=== PATIENT | male | born 1950 | race Caucasian/White ===

== ENCOUNTER → 2017-10-18 | Outpatient (CLI) | payer MEDICARE, OTHER ==
--- NOTE | 2017-10-18 14:39 | NM ---
EXAMINATION TYPE: NM bone scan whole body DATE OF EXAM: 10/18/2017 COMPARISON: MRI lumbar 09/15/2017 and plain film 09/08/2017 from outside institution HISTORY: Spondylosis, spinal stenosis, Abnormal MRI Delayed whole-body scanning was performed following the injection of 22.2 mCi Tc 99m MDP. Images acq uired 3 hours post injection. FINDINGS: Soft tissue uptake is normal. Uptake within the ankles, feet, knees, hands, shoulders, sternoclavicul ar joints is likely degenerative. Uptake in the maxilla and mandible likely due to periodontal diseas e. Uptake in the spine is likely due to degenerative disc disease. IMPRESSION: Degenerative disc disease and osteoarthritis. No abnormal uptake to suggest metastatic disease.
== END | disposition home or self-care (01) ==
LOC: RADNMMAIN 09:59
PROVIDERS: ATTEND Physical Medicine & Rehabilitation
DX: M51.36 Other intervertebral disc degeneration, lumbar region (principal); M47.816 Spondylosis without myelopathy or radiculopathy, lumbar region
CPT/HCPCS: 78306; A9503

== ENCOUNTER → 2019-04-11 | Outpatient (CLI) | payer MEDICARE, OTHER ==
[2019-04-11 17:53] LABS: HCT 52.8 % (39.0-53.0); HGB 16.8 gm/dL (13.0-17.5); MCH 30.9 pg (25.0-35.0); MCHC 31.9 g/dL (31.0-37.0); MCV 96.9 fL (80.0-100.0); Mean Platelet Volume 11.4; Platelet Count 231 k/uL (150-450); RBC 5.45 m/uL (4.30-5.90); RDW 13.3 % (11.5-15.5); WBC 8.2 k/uL (3.8-10.6)
[2019-04-11 20:33] LABS: Erythrocyte Sedimentation Rate 11 mm/hr (0-15)
[2019-04-12 02:21] LABS: Hemoglobin A1C 6.7 % (4.0-6.0)
[2019-04-12 02:33] LABS: African American GFR (CKD) 105.6 (60.0-200.0); Albumin 4.5 g/dL (3.80-4.90); Albumin/Globulin Ratio 1.88 (1.60-3.17); BUN/Creat Ratio 18.75 Ratio (12.00-20.00); Calcium 9.4 mg/dL (8.7-10.3); Globulin 2.4 g/dL (1.6-3.3); Non-African American GFR(CKD) 91.1 (60.0-200.0); Potassium 4.4 mmol/L (3.5-5.5); Total Bilirubin 0.3 mg/dL (0.3-1.2); Total Protein 6.9 g/dL (6.2-8.2)
[2019-04-12 02:42] LABS: T4, Free (Free Thyroxine) 1.1 ng/dL (0.80-1.80)
== END | disposition home or self-care (01) ==
LOC: LABWHC1 17:11
PROVIDERS: ATTEND Internal Medicine
DX: M54.5 Low back pain (principal); R63.4 Abnormal weight loss; F17.200 Nicotine dependence, unspecified, uncomplicated
CPT/HCPCS: 36415; 80053; 83036; 84439; 84443; 85027; 85652

== ENCOUNTER → 2021-10-09 | Outpatient (CLI) | payer MEDICARE ==
--- NOTE | 2021-10-09 12:32 | XR ---
EXAMINATION TYPE: XR cervical spine comp DATE OF EXAM: 10/09/2021 COMPARISON: NONE HISTORY: Pain TECHNIQUE: Four views are submitted. FINDINGS: The odontoid is intact. There are no compression deformities. The prevertebral soft tissue structur es are within normal limits. Multilevel facet arthropathy and degenerative disc disease most marked at C5-6 and C6-C7. Calcifications soft tissue the neck compatible carotid artery calcification. IMPRESSION: 1. Trilevel degenerative disc disease with severe changes involving the lower cervical spine facet ar thropathy suspected foraminal encroachment recommend MRI. 2. Soft tissue calcification in the neck bilaterally correlate for atherosclerotic disease of the car otid arteries.
== END | disposition home or self-care (01) ==
LOC: RADXRMAIN 11:21
PROVIDERS: ATTEND Family Medicine
DX: M54.2 Cervicalgia (principal); M79.602 Pain in left arm
CPT/HCPCS: 72050

== ENCOUNTER 2024-01-23 11:05 | Inpatient (IN) | payer MEDICARE ==
[2024-01-23 11:35] LABS: Basophils % (A) 0 %; Eosinophils # (A) 0.1 k/uL (0-0.7); Eosinophils % (A) 1 %; HCT 46.7 % (39.0-53.0); HGB 14.1 gm/dL (13.0-17.5); Hypochromasia Marked; Lymphocytes # (A) 0.9 k/uL (1.0-4.8); Lymphocytes % (A) 10 %; MCH 29.7 pg (25.0-35.0); MCHC 30.1 g/dL (31.0-37.0); MCV 98.5 fL (80.0-100.0); Mean Platelet Volume 12.1; Monocytes # (A) 0.5 k/uL (0-1.0); Monocytes % (A) 5 %; Neutrophils # (A) 7.4 k/uL (1.3-7.7); Neutrophils % (A) 83 %; Platelet Count 225 k/uL (150-450); RBC 4.75 m/uL (4.30-5.90); RDW 13.8 % (11.5-15.5); WBC 8.9 k/uL (3.8-10.6)
[2024-01-23 11:44] LABS: ALT 15 U/L (4-49); African American GFR (CKD) >90 (>60 ml/min/1.73 sqM); Albumin 4.1 g/dL (3.5-5.0); Anion Gap 9 mmol/L; Blood Urea Nitrogen 26 mg/dL (9-20); Calcium 9.7 mg/dL (8.4-10.2); Carbon Dioxide 31 mmol/L (22-30); Chloride 104 mmol/L (98-107); Glucose 255 mg/dL (74-99); Non-African American GFR(CKD) 86 (>60 ml/min/1.73 sqM); Sodium 144 mmol/L (137-145); Total Bilirubin 0.5 mg/dL (0.2-1.3); Total Protein 7.1 g/dL (6.3-8.2)
[2024-01-23 11:46] LABS: AST 28 U/L (17-59); Alkaline Phosphatase 87 U/L (38-126); Magnesium 1.9 mg/dL (1.6-2.3); Potassium 5.3 mmol/L (3.5-5.1)
[2024-01-23 11:52] LABS: NT-Pro-B-Type Natriuretic Pept 1040 pg/mL
--- NOTE | 2024-01-23 11:55 | XR ---
EXAMINATION TYPE: XR chest 2V DATE OF EXAM: 01/23/2024 11:42 AM COMPARISON: Chest radiographs from 01/23/2024 CLINICAL INDICATION: Male, 73 years old with history of difficulty breathing; TECHNIQUE: XR chest 2V Frontal and lateral views of the chest. FINDINGS: Lungs/Pleura: NEAR complete obscuration of the right lung with suspected underlying large right pleur al effusion. There is no evidence of left pleural effusion, left focal consolidation, or pneumothorax . Pulmonary vascularity: Unremarkable. Heart/mediastinum: Cardiomediastinal silhouette is unremarkable. Musculoskeletal: No acute osseous pathology. IMPRESSION: Large right pleural effusion with associated atelectasis. [facility], , 01/23/2024 11:53 AM
[2024-01-23 12:11] LABS: Prothrombin Time 11.1 sec (10.0-12.5)
--- NOTE | 2024-01-23 12:15 | ED ---
SOB HPI - General Chief Complaint: Shortness of Breath Stated Complaint: Afib,AMS Time Seen by Provider: 01/23/24 11:06 Source: patient, EMS, RN notes reviewed Mode of arrival: EMS Limitations: no limitations - History of Present Illness Initial Comments: 73-year-old male presents emergency department chief complaint of shortness of breath. Patient states he is noticing that increasing exertional dyspnea. Patient states that he said unintentional weight loss, states that has been coughing up blood. Patient states he does not take any current medications states he an appointment at his facility and states that he tried to walk [place] became too short of breath and fell over. Patient was found by staff. Patient was reportedly hypoxic per EMS immediately responded after supplemental O2. Patient has no complaints of headache. Patient states he is a former smoker states that because of facility he lives that he cannot smoke he states he been using nicotine. Patient denies any localized abdominal pain no lower extremity weakness he states he has overall fatigue. - Related Data Home Medications Medication Instructions Recorded Confirmed No Known Home Medications 01/23/24 01/23/24 Allergies Allergy/AdvReac Type Severity Reaction Status Date / Time No Known Allergies Allergy Verified 01/23/24 13:47 Review of Systems ROS Statement: Those systems with pertinent positive or pertinent negative responses have been documented in the HPI. ROS Other: All systems not noted in ROS Statement are negative. Past Medical History Past Medical History: No Reported History History of Any Multi-Drug Resistant Organisms: None Reported Past Surgical History: Hernia Repair Additional Past Surgical History / Comment(s): splenectomy Past Psychological History: No Psychological Hx Reported Past Alcohol Use History: Occasional Past Drug Use History: None Reported General Exam Limitations: no limitations General appearance: alert, in no apparent distress Head exam: Present: atraumatic, normocephalic, normal inspection Eye exam: Present: normal appearance, PERRL, EOMI. Absent: scleral icterus, conjunctival injection, periorbital swelling ENT exam: Present: normal exam, normal oropharynx, mucous membranes moist Neck exam: Present: normal inspection, full ROM. Absent: tenderness, meningismus, lymphadenopathy Respiratory exam: Present: respiratory distress, wheezes. Absent: rales, rhonchi, stridor Cardiovascular Exam: Present: tachycardia, irregular rhythm, normal heart sounds. Absent: regular rate, normal rhythm, systolic murmur, diastolic murmur, rubs, gallop, clicks GI/Abdominal exam: Present: soft, normal bowel sounds. Absent: distended, tenderness, guarding, rebound, rigid Course Vital Signs 01/23/24 01/23/24 01/23/24 11:09 12:19 13:30 Temperature 97.8 F Pulse Rate 125 H 76 73 Respiratory 24 22 20 Rate Blood Pressure 113/68 111/56 110/58 O2 Sat by Pulse 99 100 96 Oximetry Medical Decision Making - Medical Decision Making Was pt. sent in by a medical professional or institution (, PA, INSEAMER, urgent care, hospital, or [facility]...) When possible be specific @ -No Did you speak to anyone other than the patient for history (EMS, parent, family, police, friend...)? What history was obtained from this source @ -No Did you review nursing and triage notes (agree or disagree)? Why? @ -I reviewed and agree with nursing and triage notes Were old charts reviewed (outside hosp., previous admission, EMS record, old EKG, old radiological studies, urgent care reports/EKG's, [facility] records)? Report findings @ -No old charts were reviewed Differential Diagnosis (chest pain, altered mental status, abdominal pain women, abdominal pain men, vaginal bleeding, weakness, fever, dyspnea, syncope, headache, dizziness, GI bleed, back pain, seizure, CVA, palpatations, mental health, musculoskeletal)? @ -Differential Dyspnea: Coronary syndrome, arrhythmia, tamponade, asthma, COPD, pulmonary embolism, pneumonia, pneumothorax, pulmonary effusion, anaphylaxis, diabetic ketoacidosis, flailed chest, pulmonary contusion, diaphragmatic rupture, anemia, neuromuscular, this is not meant to be an all-inclusive list. EKG interpreted by me (3pts min.). @ -As above X-rays interpreted by me (1pt min.). @ -Chest x-ray shows large pleural effusion with probable underlying mass CT interpreted by me (1pt min.). @ -CT angio for PE negative for PE, there is large pulmonary mass, pleural effusion on the right U/S interpreted by me (1pt. min.). @ -None done What testing was considered but not performed or refused? (CT, X-rays, U/S, labs)? Why? @ -None What meds were considered but not given or refused? Why? @ -None Did you discuss the management of the patient with other professionals (professionals i.e. DrVeronica, PA, INSEAMER, lab, RT, psych nurse, social services director, commercial credit analyst, teacher, combat information center officer, manager rn case)? Give summary @ -Sound physician for admission with consult to pulmonology Was smoking cessation discussed for >3mins.? @ -No Was critical care preformed (if so, how long)? @ -No Were there social determinants of health that impacted care today? How? (Homelessness, low income, unemployed, alcoholism, drug addiction, tr ansportation, low edu. Level, literacy, decrease access to med. care, fci, rehab)? @ -No Was there de-escalation of care discussed even if they declined (Discuss DNR or withdrawal of care, Hospice)? DNR status @ -No What co-morbidities impacted this encounter? (DM, HTN, Smoking, COPD, CAD, Cancer, CVA, ARF, Chemo, Hep., AIDS, mental health diagnosis, sleep apnea, morbid obesity)? @ -[Smoking history Was patient admitted / discharged? Hospital course, mention meds given and route, prescriptions, significant lab abnormalities, going to OR and other pertinent info. @ -Admitted patient presented for dyspnea, exertional dyspnea hypoxia. Patient placed on supplemental O2, patient did present in A-fib RVR and Cardizem was ordered. Patient heart rate did improve and converted back to normal sinus rhythm. Patient's workup reveals large pulmonary mass concerning for malignancy, pleural effusion and obstructive process. Patient will be admitted for further treatment and evaluation. Patient did have elevated troponin more likely from demand ischemia hypoxia. This will be trended. Undiagnosed new problem with uncertain prognosis? @ -Yes Drug Therapy requiring intensive monitoring for toxicity (Heparin, Nitro, Insulin, Cardizem)? @ -No Were any procedures done? @ -No Diagnosis/symptom? @ -Pulmonary mass, hypoxia, exertional dyspnea, elevated troponin Acute, or Chronic, or Acute on Chronic? @ -Acute Uncomplicated (without systemic symptoms) or Complicated (systemic symptoms)? @ -[Complicated Side effects of treatment? @ -No Exacerbation, Progression, or Severe Exacerbation? @ -No Poses a threat to life or bodily function? How? (Chest pain, USA, VT, pneumonia, PE, COPD, DKA, ARF, appy, cholecystitis, CVA, Diverticulitis, Homicidal, Suicidal, threat to staff... and all critical care pts) @ -[Yes hypoxia, pulmonary mass, respiratory failure - Lab Data Result diagrams: 01/23/24 11:26 01/23/24 11: Lab Results 01/23/24 01/23/24 01/23/24 Range/Units 11:26 11:26 11:26 WBC 8.9 (3.8-10.6) k/uL RBC 4.75 (4.30-5.90) m/uL Hgb 14.1 (13.0-17.5) gm/dL Hct 46.7 (39.0-53.0) % MCV 98.5 (80.0-100.0) fL MCH 29.7 (25.0-35.0) pg MCHC 30.1 L (31.0-37.0) g/dL RDW 13.8 (11.5-15.5) % Plt Count 225 (150-450) k/uL MPV 12.1 Neutrophils % 83 % Lymphocytes % 10 % Monocytes % 5 % Eosinophils % 1 % Basophils % 0 % Neutrophils # 7.4 (1.3-7.7) k/uL Lymphocytes # 0.9 L (1.0-4.8) k/uL Monocytes # 0.5 (0-1.0) k/uL Eosinophils # 0.1 (0-0.7) k/uL Basophils # 0.0 (0-0.2) k/uL Hypochromasia Marked PT 11.1 (10.0-12.5) sec INR 1.0 (<1.2) APTT 19.4 L (22.0-30.0) sec D-Dimer 2.48 H (<0.60) mg/L FEU Sodium 144 (137-145) mmol/L Potassium 5.3 H (3.5-5.1) mmol/L Chloride 104 (98-107) mmol/L Carbon Dioxide 31 H (22-30) mmol/L Anion Gap 9 mmol/L BUN 26 H (9-20) mg/dL Creatinine 0.85 (0.66-1.25) mg/dL Est GFR (CKD-EPI)AfAm >90 (>60 ml/min/1.73 sqM) Est GFR (CKD-EPI)NonAf 86 (>60 ml/min/1.73 sqM) Glucose 255 H (74-99) mg/dL Lactic Ac Sepsis Rflx Plasma Lactic Acid Yousuf (0.7-2.0) mmol/L Calcium 9.7 (8.4-10.2) mg/dL Magnesium 1.9 (1.6-2.3) mg/dL Total Bilirubin 0.5 (0.2-1.3) mg/dL AST 28 (17-59) U/L ALT 15 (4-49) U/L Alkaline Phosphatase 87 (38-126) U/L Troponin I (0.000-0.034) ng/mL NT-Pro-B Natriuret Pep 1040 pg/mL Total Protein 7.1 (6.3-8.2) g/dL Albumin 4.1 (3.5-5.0) g/dL 01/23/24 01/23/24 01/23/24 Range/Units 11:26 11:26 11:56 WBC (3.8-10.6) k/uL RBC (4.30-5.90) m/uL Hgb (13.0-17.5) gm/dL Hct (39.0-53.0) % MCV (80.0-100.0) fL MCH (25.0-35.0) pg MCHC (31.0-37.0) g/dL RDW (11.5-15.5) % Plt Count (150-450) k/uL MPV Neutrophils % % Lymphocytes % % Monocytes % % Eosinophils % % Basophils % % Neutrophils # (1.3-7.7) k/uL Lymphocytes # (1.0-4.8) k/uL Monocytes # (0-1.0) k/uL Eosinophils # (0-0.7) k/uL Basophils # (0-0.2) k/uL Hypochromasia PT (10.0-12.5) sec INR (<1.2) APTT (22.0-30.0) sec D-Dimer (<0.60) mg/L FEU Sodium (137-145) mmol/L Potassium (3.5-5.1) mmol/L Chloride (98-107) mmol/L Carbon Dioxide (22-30) mmol/L Anion Gap mmol/L BUN (9-20) mg/dL Creatinine (0.66-1.25) mg/dL Est GFR (CKD-EPI)AfAm (>60 ml/min/1.73 sqM) Est GFR (CKD-EPI)NonAf (>60 ml/min/1.73 sqM) Glucose (74-99) mg/dL Lactic Ac Sepsis Rflx Y Plasma Lactic Acid Yousuf 2.3 H* (0.7-2.0) mmol/L Calcium (8.4-10.2) mg/dL Magnesium (1.6-2.3) mg/dL Total Bilirubin (0.2-1.3) mg/dL AST (17-59) U/L ALT (4-49) U/L Alkaline Phosphatase (38-126) U/L Troponin I 0.073 H* (0.000-0.034) ng/mL NT-Pro-B Natriuret Pep pg/mL Total Protein (6.3-8.2) g/dL Albumin (3.5-5.0) g/dL - EKG Data -: EKG Interpreted by Me EKG Comments: EKG performed at 11: 13 A-fib with RVR rate of 142 QRS 115 QT/QTc 287/369 Repeat EKG interpreted by me at 13: 56 sinus rhythm rate of 77 MD 195 QRS 112 QT/QTc 389/421 Disposition Clinical Impression: Lung mass, Pleural effusion, right, Hypoxia, New onset a-fib, Elevated troponin Disposition: ADMITTED IP TO THIS HOSP Condition: Poor Referrals: Bang Mcclain III, MD [Primary Care Provider] - 1-2 days Time of Disposition: 13:45
[2024-01-23 12:18] LABS: Partial Thromboplastin Time 19.4 sec (22.0-30.0)
--- NOTE | 2024-01-23 13:20 | CT ---
EXAMINATION TYPE: CT chest angio for PE CT DLP: 508.8 mGycm, Automated exposure control for dose reduction was used. DATE OF EXAM: 01/23/2024 1:13 PM COMPARISON: Chest radiograph from same day. CLINICAL INDICATION:Male, 73 years old with history of sob; SOB TECHNIQUE/CONTRAST: CTA scan of the thorax is performed with IV Contrast, patient injected with 100 mL of Isovue 370, pul monary embolism protocol. MIP images are created and reviewed. FINDINGS: Pulmonary Artery: There is no evidence for a filling defect within the pulmonary vasculature to sugge st acute pulmonary embolism. The main pulmonary artery is enlarged measuring 3.8 cm in diameter. The right main pulmonary artery is narrowed but patent Lungs/Pleura: Left lung is clear. No pneumothorax identified. Atelectatic change of the right lung. S mall to moderate size right pleural effusion with elevation of the right hemidiaphragm. Right hilar m ass measuring grossly 9.9 x 4.8 cm (series 401, image 64). This extends into the right suprahilar reg ion. Patchy right lower lobe groundglass and consolidative opacities. Airway: There is narrowing of the distal trachea with abrupt cut off of the right mainstem bronchus d ue to mass. Heart: Heart is within normal limits for size.. Vasculature: No evidence of aortic aneurysm. Few foci of gas identified within the venous vasculature likely related to vascular access. Atherosclerotic calcification of the aorta and its branches. Mediastinum: Confluent mediastinal adenopathy with additional super mediastinal enlarged lymph nodes . Prevascular space lymph node measures 2.1 cm short axis (series 401, image 51). Musculoskeletal: No acute osseous abnormalities. [facility] of the thoracic spine. Mild multilevel degenera tive disease. No aggressive osseous lesion. Vertebral hemangioma involving the right aspect of the T4 vertebral body extending into the posterior elements. Soft Tissues: Unremarkable. Lower neck: No significant findings. Upper Abdomen: Right adrenal gland 2.8 cm lipid rich adenoma with a Hounsfield unit of 6. Diminutive appearance of the spleen with multiple scattered regions of nodularity within the visualized peritone um including a 2.9 cm ovoid nodule inferior to the right hepatic lobe (series 401, image 142), gastro hepatic nodule measuring 3.4 cm central calcification (series 401, image 130). Hypoattenuating region adjacent to the falciform ligament within the liver likely representing focal fatty infiltration. IMPRESSION: 1. No evidence of pulmonary embolism. 2. Large right perihilar mass with superior hilar extension and invasion into the mediastinum and adj acent confluent adenopathy. Finding is highly concerning for primary lung cancer until proven otherwi se. This causes abrupt cut off of the right mainstem bronchus with narrowing of the right pulmonary a rtery. 3. Small to moderate size right pleural effusion with atelectatic change of the right lung. There is patchy consolidative opacities within the right lower lobe which may represent an infectious processe s versus related to #2. 4. Diminutive appearance of the spleen with few scattered regions of nodularity in the upper abdomen. May represent splenosis versus other etiologies such as metastasis related to #2. 5. Hypodense right 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 [facility], , 01/23/2024 1:18 PM
[2024-01-23] MEDS ORDERED: NITROGLYCERIN SL TABS 0.4 MG TAB SUBLINGUAL PRN (13:45)
[2024-01-23] MEDS: DILTIAZEM 125 MG in SODIUM CHLORIDE 0.9% 100 ML IV SCH (14:00)
[2024-01-23] MEDS: DILTIAZEM DRIP BOLUS FROM BAG 1 MG SOLN IV ONE (14:00)
[2024-01-23] MEDS ORDERED: NALOXONE 0.4 MG/ML 1 ML VIAL IV PRN (15:20)
[2024-01-23] MEDS ORDERED: ACETAMINOPHEN TAB 325 MG TAB PO PRN (15:20)
[2024-01-23] MEDS: SODIUM CHLORIDE 0.9% 1,000 ML IV SCH (16:15)
[2024-01-23] MEDS: DEXAMETHASONE SOD PHOSPHATE 10 MG/ML 1 ML VIAL IVP SCH (18:06)
--- NOTE | 2024-01-23 18:10 | P.CNPUL ---
History of Present Illness Consult date: 01/23/24 Reason for consult: dyspnea, lung mass History of present illness: A 73-year-old male patient, chronic smoker presented to the emergency department with progressive worsening shortness of breath over the past 2 to 3 months. The patient at the time of arrival was quite short of breath and he has inspiratory stridor. CT of the chest was done and the patient was found to have a right hilar mass measuring 9.9 x 4.8 cm in size and the mass extended into the right suprahilar area causing mass effect on the trachea with significant narrowing of the distal trachea and there is also an abrupt cut off of the right mainstem bronchus due to mass. There is also atelectatic changes involving the right lung and a small to moderate-sized right-sided pleural effusion and volume loss involving the right hemithorax with elevation of the right hemidiaphragm. There was also evidence of mediastinal lymphadenopathy. The tumor is extending into the trachea and there is obvious endobronchial component. The patient has been having episodes of hemoptysis in addition. In the emergency, the patient briefly went into atrial fibrillation with rapid medical response. Even before Cardizem drip was started, the patient went into normal sinus rhythm. Currently he is sitting up in a chair and is on oxygen 1 L with a pulse ox of 93%. He has a hoarse voice. No altered mentation. No headaches. No chest pain. Initial lactic acid level was at 2.3 dropped down to 1.3. Troponins are 0.07 and 0.09 respectively and a proBNP level is 1000. The white cell count is at 8.9 with a hemoglobin 14.1. He has been encountering weight loss. Review of Systems Constitutional: Reports fatigue, Reports weakness, Reports weight loss Eyes: denies as per HPI, denies blurred vision, denies bulging eye, denies decreased vision, denies diplopia, denies discharge, denies dry eye, denies irritation, denies itching, denies pain, denies photophobia, denies loss of peripheral vision, denies loss of vision, denies tunnel vision/blind spots Ears: deny: decreased hearing, ear discharge, earache, tinnitus Ears, nose, mouth and throat: Reports as per HPI Breasts: absent: as per HPI, gynecomastia Cardiovascular: Reports decreased exercise tolerance, Reports dyspnea on exertion Respiratory: Reports cough, Reports dyspnea, Reports hemoptysis Gastrointestinal: Reports as per HPI Genitourinary: Reports as per HPI Musculoskeletal: Reports as per HPI Musculoskeletal: absent: ankle pain, ankle stiffness, ankle swelling, as per HPI, elbow pain, elbow stiffness, elbow swelling, foot pain, foot stiffness, foot swelling, hand pain, hand stiffness, hand swelling, hip pain, hip s tiffness, hip swelling, knee pain, knee stiffness, knee swelling, shoulder pain, shoulder stiffness, shoulder swelling, wrist pain, wrist stiffness, wrist swelling Integumentary: Reports as per HPI Neurological: Reports as per HPI Psychiatric: Reports as per HPI Endocrine: Reports as per HPI Hematologic/Lymphatic: Reports as per HPI Allergic/Immunologic: Reports as per HPI Past Medical History Past Medical History: No Reported History History of Any Multi-Drug Resistant Organisms: None Reported Past Surgical History: Hernia Repair Additional Past Surgical History / Comment(s): splenectomy Past Psychological History: No Psychological Hx Reported Past Alcohol Use History: Occasional Past Drug Use History: None Reported Medications and Allergies Home Medications Medication Instructions Recorded Confirmed Type No Known Home Medications 01/23/24 01/23/24 History Allergies Allergy/AdvReac Type Severity Reaction Status Date / Time No Known Allergies Allergy Verified 01/23/24 13:47 Physical Exam Vitals: Vital Signs Temp Pulse Resp BP Pulse Ox 01/23/24 16:11 93 L 01/23/24 15:59 80 20 123/61 94 L 01/23/24 13:30 73 20 110/58 96 01/23/24 12:19 76 22 111/56 100 01/23/24 11:09 97.8 F 125 H 24 113/68 99 Intake and Output 01/23/24 01/23/24 01/23/24 06:59 14:59 22:59 Other: Weight 98.43 kg The patient appeared well nourished and normally developed. Vital signs as documented. The patient is having dyspnea at rest. The patient has also had inspiratory stridor over the anterior chest and neck area. He is currently on monitor of O2 nasal cannula. Head exam is unremarkable. No scleral icterus or corneal arcus noted. Neck is without jugular venous distension, thyromegaly, or carotid bruits. Carotid upstrokes are brisk bilaterally. Lungs marked diminished breath sounds right compared to left. Examination of the left side is within normal limits. Cardiac exam reveals the PMI to be normally sized and situated. Rhythm is regular. First and second heart sounds normal. No murmurs, rubs or gallops. Abdominal exam reveals normal bowel sounds, no masses, no organomegaly and no aortic enlargement. Extremities are nonedematous and both femoral and pedal pulses are normal. Examination of the skin revealed no evidence of significant rashes, suspicious appearing nevi or other concerning lesions. Neurologically, the patient is awake and alert and the patient does not have any focal neurological deficit. Cranial nerves are essentially intact. Results - Laboratory Findings CBC and BMP: 01/23/24 11:01/23/24 11: PT/INR, D-dimer PT 11.1 sec (10.0-12.5) 01/23/24: INR 1.0 (<1.2) 01/23/24 11: D-Dimer 2.48 mg/L FEU (<0.60) H 01/23/24 11:26 Abnormal lab findings: Abnormal Labs 01/23/24 01/23/24 01/23/24 11: 11:26 11:26 MCHC 30.1 L Lymphocytes # 0.9 L APTT 19.4 L D-Dimer 2.48 H Potassium 5.3 H Carbon Dioxide 31 H BUN 26 H Glucose 255 H Plasma Lactic Acid Yousuf Troponin I 01/23/24 01/23/24 01/23/24 11:26 11:26 14:06 MCHC Lymphocytes # APTT D-Dimer Potassium Carbon Dioxide BUN Glucose Plasma Lactic Acid Yousuf 2.3 H* Troponin I 0.073 H* 0.097 H* - Diagnostic Findings Chest x-ray: image reviewed CT scan - chest: image reviewed Assessment and Plan Plan: Right upper lobe mass measuring 9.9 x 4.8 cm in size extending to the right suprahilar area and causing mass effect on the distal trachea with abrupt cut ultrasound of the right mainstem bronchus/bronchus intermedius and right upper lobe bronchus. The patient also has mediastinal lymphadenopathy and atelectatic changes involving the right lung and mild to moderate-sized right-sided pleural effusion and volume loss involving the right hemithorax. Findings are highly suspicious for central malignancy/primary bronchogenic cancer. Rule out underlying small cell lung cancer. Acute stridor, could be related to vocal cord paralysis versus tracheal compression by the mediastinal tumor. Impending SVC syndrome with positive JVDs without facial or upper extremity swelling Acute on chronic shortness of breath secondary to above Hemoptysis, likely secondary to the right upper lobe mass extending into the right mainstem bronchus/tracheal wall Paroxysmal A-fib, currently back in normal sinus rhythm Troponin leak COPD Chronic smoking Plan I had a lengthy discussion with the patient. The patient was made aware that his airways are significantly compromised as the patient is having some stridor at rest. A bronchoscopy will be needed for tissue diagnosis. However, this procedure may end up being complicated by development of respiratory failure requiring intubation mechanical ventilation. This is a significant concern and this was shared with the patient. This will be also discussed with other family members. The patient does not have immediate family members living with him and portogram. He has a brother in [facility] and another sister in [place]. I will reach out to the sister upon the patient's wishes and explained to her the situation. Meanwhile, we will going to consult radiation oncology in consideration of ablative radiation therapy as the patient has significant compromise and mass effect on his trachea. Will start the patient on systemic steroids. Will admit the patient to the intensive care unit. Bronchoscopy will be a high risk procedure and as mentioned the patient may end up requiring intubation mechanical ventilation which may be a long-term or permanent intervention. The patient stated that he does not want long-term mechanical support and he was agreeable to short-term mechanical support if needed post bronchoscopy. For now, his CODE STATUS is full. Overall prognosis is poor. Further prognostication will follow once tissue diagnosis established and staging is established.
[2024-01-23 19:30] LABS: Glucose,Whole Blood 137 mg/dL (70-110)
--- NOTE | 2024-01-23 20:20 | P.HPIM ---
History of Present Illness H&P Date: 01/23/24 Patient is a 73-year-old male with no known past medical history presented to the emergency department by EMS after falling after walking about 40 feet this morning. He states that he "just ran out of energy." He denies tripping or syncope, no loss of consciousness. He endorses associated lightheadedness, dizziness, and dyspnea at the time. He endorses losing about 45 pounds in the last 2 months. He endorses hemoptysis for the last 3 months. He states that he has not mentioned the hemoptysis to his primary care provider. Initial EKG independently interpreted as A-fib with rapid ventricular rate, poor R-wave progression. IV Cardizem was given. Initial chest x-ray: Large right pleural effusion with associated atelectasis. Initial chest CTA: No evidence of pulmonary embolism; large right perihilar mass with superior hilar extension and invasion into the mediastinum and adjacent co nfluent adenopathyfinding highly concerning for primary lung cancer until proven otherwisethis caused abrupt cut off of the right mainstem bronchus with narrowing of the right pulmonary artery; small to moderate size right pleural effusion with atelectatic change of the right lungpatchy consolidative opacities within the right lower lobe which may represent an infectious process versus related to other finding; diminutive appearance of the spleen with few scattered regions of nodularity in the upper abdomen, may represent splenosis versus other etiologies such as metastasis; 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 Initial labs: WBC 8.9, hemoglobin 14.1, hematocrit 46.7, platelets 225, PT 11.1, INR 1, APTT 19.4, D-dimer 2.48, sodium 144, potassium 5.3, chloride 104, CO2 31, BUN 26, creatinine 0.85, glucose 255, lactic acid 2.3, troponin X3 0.073, 0.097, 0.092. Initial vitals: T 97.8 F, [place] 125 bpm, RR 24, BP 113/68, O2 sat 99% on 6 L nasal cannula. ED documentation reviewed. Review of systems: Pertinent positives and negatives as discussed in HPI, a complete review of systems was performed and all other systems are negative. Social history: Tobacco: 1-2 ppd since age 17 Alcohol: 3 drinks per week on average Recreational drugs: None reported Travel: None reported Sick contacts: None reported Physical examination: Vital signs reviewed. Tachypneic. General: Respiratory distress, hoarse voice Derm: Warm, dry, intact Head: Atraumatic, normocephalic, symmetric Eyes: EOMI, anicteric sclera Mouth: No lip lesion, mucus membranes moist Cardiovascular: S1-S2 regular, no murmur; JVD present Lungs: Inspiratory stridor, accessory muscle use, diminished breath sounds on the right side compared to the left Abdominal: Soft, non-tender to palpation Extremities: No cyanosis, clubbing, or pedal edema; no edema of the right upper extremity Neuro: Alert, oriented x 3, gross neurological examination did not reveal any focal deficits. Cranial nerves II to XII grossly intact. Psych: Appropriate affect and mood Assessment and Plan: Patient is a 73-year-old male with no known past medical history admitted for acute hypoxic respiratory failure. He was subsequently found to have a lung mas s and is undergoing further workup. Active #. Acute hypoxic respiratory failure, likely secondary to lung mass #. Metabolic alkalosis-compensatory versus contraction alkalosis #. Elevated BNP, likely secondary to lung mass #. Hemoptysis, likely secondary to lung mass extending into mainstem bronchus #. Acute stridor, secondary to tracheal compression via mediastinal tumor versus vocal cord paralysis Normal saline at 75 cc/h Monitor BMP IV ceftriaxone 2 g daily empirically for pneumonia IV azithromycin 500 mg daily empirically for pneumonia Decadron IV 6 mg every 6 hours Obtain procalcitonin Monitor BMP Monitor CBC Obtain LDH Obtain magnesium Obtain TSH with reflex Obtain A1c Obtain lipid panel Oncology consulted Pulmonology consulteddiscussed with pulmonology at bedsidebronchoscopy is needed for tissue diagnosis Significant concern for respiratory failure requiring intubation and mechanical ventilation Fall precautions Discussed with oncolology re: initiating decadron Consulted radiation oncology for consideration of urgent chest radiation #. Paroxysmal A-fib not on anticoagulation Currently in normal sinus rhythm Telemetry monitoring Started on diltiazem gtt in ER F: No restriction E: Replete if required N: NPO A: Fall precautions DVT prophylaxis: Subcutaneous Lovenox 40 mg daily currently on hold due to possibility for bronchoscopy tomorrow The patient is admitted with an anticipated less than 2 midnight stay for evaluation of fatigue and dyspnea. CODE STATUS: Full code, but would not want alf life sustaining treatment Discussed with: Patient, patient's sister via phone, Dr. Ramos Anticipated discharge place: Pending clinical course I saw and evaluated the patient during the fung and critical portions of this encounter, and discussed the case in detail with the resident author of this note, I agree with the Assessment and Plan, and my changes, if any, are highlighted in blue. Past Medical History Past Medical History: No Reported History History of Any Multi-Drug Resistant Organisms: None Reported Past Surgical History: Hernia Repair Additional Past Surgical History / Comment(s): splenectomy Past Psychological History: No Psychological Hx Reported Past Alcohol Use History: Occasional Past Drug Use History: None Reported Medications and Allergies Home Medications Medication Instructions Recorded Confirmed Type No Known Home Medications 01/23/24 01/23/24 History Allergies Allergy/AdvReac Type Severity Reaction Status Date / Time No Known Allergies Allergy Verified 01/23/24 13:47 Physical Exam Osteopathic Statement: *. No significant issues noted on an osteopathic structural exam other than those noted in the History and Physical/Consult. Vitals: Vital Signs Temp Pulse Resp BP Pulse Ox 01/23/24 13:30 73 20 110/58 96 01/23/24 12:19 76 22 111/56 100 01/23/24 11:09 97.8 F 125 H 24 113/68 99 Intake and Output 01/22/24 01/23/24 01/23/24 22:59 06:59 14:59 Other: Weight 98.43 kg Results CBC & Chem 7: 01/23/24 11:26 01/23/24 11:26 Labs: Abnormal Lab Results - Last 24 Hours (Table) 01/23/24 01/23/24 01/23/24 Range/Units 11:26 11:26 11:26 MCHC 30.1 L (31.0-37.0) g/dL Lymphocytes # 0.9 L (1.0-4.8) k/uL APTT 19.4 L (22.0-30.0) sec D-Dimer 2.48 H (<0.60) mg/L FEU Potassium 5.3 H (3.5-5.1) mmol/L Carbon Dioxide 31 H (22-30) mmol/L BUN 26 H (9-20) mg/dL Glucose 255 H (74-99) mg/dL Plasma Lactic Acid Yousuf (0.7-2.0) mmol/L Troponin I (0.000-0.034) ng/mL 01/23/24 01/23/24 Range/Units 11:26 11:26 MCHC (31.0-37.0) g/dL Lymphocytes # (1.0-4.8) k/uL APTT (22.0-30.0) sec D-Dimer (<0.60) mg/L FEU Potassium (3.5-5.1) mmol/L Carbon Dioxide (22-30) mmol/L BUN (9-20) mg/dL Glucose (74-99) mg/dL Plasma Lactic Acid Yousuf 2.3 H* (0.7-2.0) mmol/L Troponin I 0.073 H* (0.000-0.034) ng/mL
[2024-01-23 20:22] LABS: Glucose,Whole Blood 120 mg/dL (70-110)
[2024-01-23] MEDS: AZITHROMYCIN 500 MG in SODIUM CHLORIDE 0.9% 250 ML IVPB SCH (21:45)
[2024-01-24] MEDS: NICOTINE 21MG/24HR PATCH TRANSDERM SCH (00:16)
[2024-01-24 06:36] LABS: African American GFR (CKD) >90 (>60 ml/min/1.73 sqM); Anion Gap 1 mmol/L; Blood Urea Nitrogen 19 mg/dL (9-20); Calcium 9.5 mg/dL (8.4-10.2); Carbon Dioxide 37 mmol/L (22-30); Chloride 103 mmol/L (98-107); Glucose 154 mg/dL (74-99); LDH 174 U/L (120-246); Magnesium 1.9 mg/dL (1.6-2.3); Non-African American GFR(CKD) >90 (>60 ml/min/1.73 sqM); Potassium 5.7 mmol/L (3.5-5.1); Sodium 141 mmol/L (137-145)
[2024-01-24 06:47] LABS: Basophils % (A) 0 %; Eosinophils % (A) 0 %; HCT 44.4 % (39.0-53.0); HGB 13.3 gm/dL (13.0-17.5); Hypochromasia Marked; Lymphocytes # (A) 0.2 k/uL (1.0-4.8); Lymphocytes % (A) 3 %; MCH 29.4 pg (25.0-35.0); MCV 98.1 fL (80.0-100.0); Mean Platelet Volume 12.4; Monocytes # (A) 0.2 k/uL (0-1.0); Monocytes % (A) 2 %; Neutrophils % (A) 94 %; Platelet Count 231 k/uL (150-450); RBC 4.53 m/uL (4.30-5.90); RDW 13.7 % (11.5-15.5); WBC 7.5 k/uL (3.8-10.6)
--- NOTE | 2024-01-24 08:40 | XR ---
EXAMINATION TYPE: XR chest 1V portable DATE OF EXAM: 01/24/2024 5:20 AM COMPARISON: Chest radiographs from 01/23/2024 CLINICAL INDICATION: Male, 73 years old with history of right lung opacification; TECHNIQUE: XR chest 1V portable Frontal view of the chest. FINDINGS: Lungs/Pleura: Near complete obscuration of the right lung which is worsened from 01/23/2024. There is no evidence of pleural effusion, focal consolidation, or pneumothorax. Pulmonary vascularity: Unremarkable. Heart/mediastinum: Cardiomediastinal silhouette is unremarkable. Musculoskeletal: No acute osseous pathology. IMPRESSION: Worsening opacification of the right lung likely secondary to large pleural fusion with atelectasis. [facility], , 01/24/2024 8:38 AM
[2024-01-24] MEDS ORDERED: ENOXAPARIN 40 MG/0.4 ML SYRINGE SQ SCH (09:00)
--- NOTE | 2024-01-24 11:24 | P.PN ---
Subjective Progress Note Date: 01/24/24 No new complaints today. Discussed with patient, sister, pulmonology, and oncology yesterday. Plan is for tissue diagnosis today with bronch and biopsy. Gen: In mild distress due to dyspnea HEENT: normocephalic, atraumatic, hearing acuity is intant, mucous membranes moist CVS: perfusing all extremities well, no pitting edema, Respiratory: symmetric chest expansion, accessory muscle use is present, p ositive stridor GI: soft, NTTP, ND, : no suprapubic tenderness, no CVA tenderness MSK/Derm: no rashes, cyanosis Neuro: CN II-XII intact, no motor weakness, Psych: cooperative, euthymic mood, judgment and insight is intact Hospital course: Patient is a 73-year-old male with no known past medical history presented to the emergency department by EMS after falling after walking about 40 feet this morning. Initial EKG independently interpreted as A-fib with rapid ventricular rate, poor R-wave progression. IV Cardizem was given. Initial chest x-ray: Large right pleural effusion with associated atelectasis. Initial chest CTA: No evidence of pulmonary embolism; large right perihilar mass with superior hilar extension and invasion into the mediastinum and adjacent confluent adenopathyfinding highly concerning for primary lung cancer until proven otherwisethis caused abrupt cut off of the right mainstem bronchus with narrowing of the right pulmonary artery; small to moderate size right pleural effusion with atelectatic change of the right lungpatchy consolidative opacities within the right lower lobe which may represent an infectious process versus related to other finding; diminutive appearance of the spleen with few scattered regions of nodularity in the upper abdomen, may represent splenosis versus other etiologies such as metastasis; 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 Initial labs: WBC 8.9, hemoglobin 14.1, hematocrit 46.7, platelets 225, PT 11.1, INR 1, APTT 19.4, D-dimer 2.48, sodium 144, potassium 5.3, chloride 104, CO2 31, BUN 26, creatinine 0.85, glucose 255, lactic acid 2.3, troponin X3 0.073, 0.097, 0.092. Initial vitals: T 97.8 F, [place] 125 bpm, RR 24, BP 113/68, O2 sat 99% on 6 L nasal cannula. Assessment and Plan: Patient is a 73-year-old male with no known past medical history admitted for acute hypoxic respiratory failure. He was subsequently found to have a lung mass and is undergoing further workup. Active #. Acute hypoxic respiratory failure, likely secondary to lung mass #. Metabolic alkalosis-compensatory versus contraction alkalosis #. Elevated BNP, likely secondary to lung mass #. Hemoptysis, likely secondary to lung mass extending into mainstem bronchus #. Acute stridor, secondary to tracheal compression via mediastinal tumor versus vocal cord paralysis Normal saline at 75 cc/h Monitor BMP Abx discontinued due to low procalcitonin Decadron IV 6 mg every 6 hours Obtain procalcitonin Monitor BMP Monitor CBC Obtain LDH Obtain magnesium Obtain TSH with reflex Obtain A1c Obtain lipid panel Oncology consulted Pulmonology consulteddiscussed with pulmonology at bedsidebronchoscopy is needed for tissue diagnosis Significant concern for respiratory failure requiring intubation and mechanical ventilation Fall precautions Discussed with oncolology re: initiating decadron Consulted radiation oncology for consideration of urgent chest radiation #. Paroxysmal A-fib not on anticoagulation Currently in normal sinus rhythm Telemetry monitoring Started on diltiazem gtt in ER, this was discontinued today F: No restriction E: Replete if required N: NPO A: Fall precautions DVT prophylaxis: Subcutaneous Lovenox 40 mg daily currently on hold due to possibility for bronchoscopy tomorrow The patient is admitted with an anticipated less than 2 midnight stay for evaluation of fatigue and dyspnea. CODE STATUS: Full code, but would not want jail life sustaining treatment Discussed with: Patient, patient's sister via phone, Dr. Ramos Anticipated discharge place: Pending clinical course Objective - Vital Signs Vital signs: Vital Signs Temp 97.4 F L 01/24/24 08:00 Pulse 90 01/24/24 11:00 Resp 14 01/24/24 11:00 BP 157/89 01/24/24 11:00 Pulse Ox 94 L 01/24/24 11:00 FiO2 1 01/23/24 20:00 Intake & Output 01/23/24 01/24/24 01/24/24 18:59 06:59 18:59 Intake Total 1125 150 Output Total 900 200 Balance 225 -50 Weight 98.43 kg 102.5 kg Intake: Intake, IV Titration 1125 150 Amount Azithromycin 500 mg In 250 Sodium Chloride 0.9% 250 ml @ 250 mls/hr IVPB DAILY@2000 [facility] Rx#: [id number] Sodium Chloride 0.9% 1, 825 150 000 ml @ 75 mls/hr IV . [id number] [facility] Rx#:[id number] cefTRIAXone 2 gm In 50 Sodium Chloride 0.9% 50 ml @ 100 mls/hr IVPB Q24H [facility] Rx#:[id number] Output: Urine 900 200 Other: Voiding Method Urinal Urinal - Labs CBC & Chem 7: 01/24/24 05:38 01/24/24 05:38 Labs: Abnormal Lab Results - Last 24 Hours (Table) 01/23/24 01/23/24 01/23/24 Range/Units 11: 11: 11:26 MCHC 30.1 L (31.0-37.0) g/dL Lymphocytes # 0.9 L (1.0-4.8) k/uL APTT 19.4 L (22.0-30.0) sec D-Dimer 2.48 H (<0.60) mg/L FEU Potassium 5.3 H (3.5-5.1) mmol/L Carbon Dioxide 31 H (22-30) mmol/L BUN 26 H (9-20) mg/dL Glucose 255 H (74-99) mg/dL POC Glucose (mg/dL) (70-110) mg/dL Hemoglobin A1c (<=6.0) % Plasma Lactic Acid Yousuf (0.7-2.0) mmol/L Troponin I (0.000-0.034) ng/mL TSH (0.465-4.680) mIU/L 01/23/24 01/23/24 01/23/24 Range/Units 11: 11: 14:06 MCHC (31.0-37.0) g/dL Lymphocytes # (1.0-4.8) k/uL APTT (22.0-30.0) sec D-Dimer (<0.60) mg/L FEU Potassium (3.5-5.1) mmol/L Carbon Dioxide (22-30) mmol/L BUN (9-20) mg/dL Glucose (74-99) mg/dL POC Glucose (mg/dL) (70-110) mg/dL Hemoglobin A1c (<=6.0) % Plasma Lactic Acid Yousuf 2.3 H* (0.7-2.0) mmol/L Troponin I 0.073 H* 0.097 H* (0.000-0.034) ng/mL TSH (0.465-4.680) mIU/L 01/23/24 01/23/24 01/23/24 Range/Units 16:57 19:29 20:20 MCHC (31.0-37.0) g/dL Lymphocytes # (1.0-4.8) k/uL APTT (22.0-30.0) sec D-Dimer (<0.60) mg/L FEU Potassium (3.5-5.1) mmol/L Carbon Dioxide (22-30) mmol/L BUN (9-20) mg/dL Glucose (74-99) mg/dL POC Glucose (mg/dL) 137 H 120 H (70-110) mg/dL Hemoglobin A1c (<=6.0) % Plasma Lactic Acid Yousuf (0.7-2.0) mmol/L Troponin I 0.092 H* (0.000-0.034) ng/mL TSH (0.465-4.680) mIU/L 01/24/24 01/24/24 01/24/24 Range/Units 05:38 05:38 05:38 MCHC 30.0 L (31.0-37.0) g/dL Lymphocytes # 0.2 L (1.0-4.8) k/uL APTT (22.0-30.0) sec D-Dimer (<0.60) mg/L FEU Potassium 5.7 H (3.5-5.1) mmol/L Carbon Dioxide 37 H (22-30) mmol/L BUN (9-20) mg/dL Glucose 154 H (74-99) mg/dL POC Glucose (mg/dL) (70-110) mg/dL Hemoglobin A1c 7.2 H (<=6.0) % Plasma Lactic Acid Yousuf (0.7-2.0) mmol/L Troponin I (0.000-0.034) ng/mL TSH 0.219 L (0.465-4.680) mIU/L
[2024-01-24] MEDS: INSULIN REGULAR 100 UNIT/ML VIAL (IV) IV ONE (13:01)
[2024-01-24 13:02] LABS: LDL Cholesterol,Calculated 115.5 mg/dL (0.0-131.0); VLDL Calculation 9.44 mg/dL (5.00-40.00)
[2024-01-24] MEDS: DEXTROSE 50% SYRINGE 50 ML IVP STA (13:04)
[2024-01-24] MEDS: SODIUM BICARB 8.4% 50 ML SYR (1 MEQ/ML) IV STA (13:05)
--- NOTE | 2024-01-24 13:13 | P.CONS ---
History of Present Illness - Reason for Consult Consult date: 01/24/24 Lung Mass, Mediastinal adenopathy - History of Present Illness The patient is a 73-year-old white male, ex-smoker, quit presented to the ER with worsening shortness of breath over the past 2-3 months, with more significa nt worsening over the past few days. He also been having transient coughing up of blood.Initial chest x-ray showed the right hemithorax to be essentially obscured, due to presence of a mass, associated atelectasis, as well as a right pleural effusion. The patient had a CT angiogram that was negative for PE. It showed a large right suprahilar mass, 9.9 cm in greatest dimension, with mass effect on the distal trachea, as well as near-complete obstruction of the right mainstem bronchus with surrounding atelectasis. There was at least a moderate sized right pleural effusion noted. There was also evidence of mediastinal adenopathy. The left lung was clear. The patient's had gone into a to simulation, then reverted back to normal sinus rhythm. He was admitted to the ICU for further management. At the time of evaluation, the patient is sitting up in the chair, still short of breath on oxygen support. There is no prior history of malignancy. He has a history of smoking between 1-1.5 packs a day, since his teens. He has been cutting down since the last one year, and was down to about 2-3 cigarettes a day. He denied any significant weight loss. Review of Systems Constitutional: Reports fatigue, Reports weakness Eyes: denies blurred vision, denies pain Ears: deny: decreased hearing, ear discharge, earache, tinnitus Ears, nose, mouth and throat: Denies headache, Denies sore throat Cardiovascular: Reports shortness of breath Respiratory: Reports cough, Reports dyspnea, Reports hemoptysis Gastrointestinal: Denies abdominal pain, Denies diarrhea, Denies nausea, Denies vomiting Genitourinary: Reports as per HPI Musculoskeletal: Reports muscle weakness Integumentary: Denies pruritus, Denies rash Neurological: Reports weakness Psychiatric: Denies anxiety, Denies depression Endocrine: Reports fatigue Hematologic/Lymphatic: Reports as per HPI Past Medical History Past Medical History: No Reported History History of Any Multi-Drug Resistant Organisms: None Reported Past Surgical History: Hernia Repair Additional Past Surgical History / Comment(s): splenectomy Past Anesthesia/Blood Transfusion Reactions: No Reported Reaction Past Psychological History: No Psychological Hx Reported Past Alcohol Use History: Occasional Past Drug Use History: None Reported Medications and Allergies Home Medications Medication Instructions Recorded Confirmed Type No Known Home Medications 01/23/24 01/23/24 History Allergies Allergy/AdvReac Type Severity Reaction Status Date / Time No Known Allergies Allergy Verified 01/23/24 13:47 Physical Exam Vitals: Vital Signs Temp Pulse Resp BP Pulse Ox FiO2 01/24/24 11:00 90 14 157/89 94 L 01/24/24 10:00 83 11 L 146/118 97 01/24/24 09:00 78 16 154/109 96 01/24/24 08:00 97.4 F L 79 29 H 102/89 95 01/24/24 07:00 74 24 96 01/24/24 06:50 68 38 H 93 L 01/24/24 06:40 65 10 L 95 01/24/24 06:30 66 33 H 97 01/24/24 06:20 67 31 H 97 01/24/24 06:10 66 28 H 96 01/24/24 06:00 66 21 127/74 94 L 01/24/24 05:50 69 15 96 01/24/24 05:40 68 23 96 01/24/24 05:30 67 28 H 96 01/24/24 05:20 69 31 H 96 01/24/24 05:10 68 28 H 96 01/24/24 05:00 70 15 117/72 95 01/24/24 04:50 75 21 94 L 01/24/24 04:40 18 93 L 01/24/24 04:30 66 11 L 94 L 01/24/24 04:20 67 23 94 L 01/24/24 04:10 69 8 L 93 L 01/24/24 04:00 98.0 F 67 26 H 103/49 94 L 01/24/24 03:50 69 34 H 93 L 01/24/24 03:40 68 25 H 94 L 01/24/24 03:30 69 33 H 93 L 01/24/24 03:20 67 31 H 103/49 93 L 01/24/24 03:10 66 30 H 93 L 01/24/24 03:00 66 29 H 118/63 94 L 01/24/24 02:50 68 33 H 95 01/24/24 02:40 70 27 H 93 L 01/24/24 02:30 71 19 96 01/24/24 02:20 72 27 H 96 01/24/24 02:10 69 15 95 01/24/24 02:00 70 34 H 105/54 94 L 01/24/24 01:50 72 27 H 96 01/24/24 01:40 71 26 H 96 01/24/24 01:30 70 30 H 91 L 01/24/24 01:20 68 30 H 93 L 01/24/24 01:10 69 29 H 91 L 01/24/24 01:00 71 30 H 135/107 90 L 01/24/24 00:50 75 26 H 92 L 01/24/24 00:40 71 19 92 L 01/24/24 00:30 74 28 H 93 L 01/24/24 00:20 74 15 95 01/24/24 00:10 75 30 H 94 L 01/24/24 00:00 97.6 F 72 16 112/79 95 01/23/24 23:50 74 27 H 93 L 01/23/24 23:49 73 27 H 91 L 01/23/24 23:40 71 36 H 93 L 01/23/24 23:30 73 33 H 96 01/23/24 23:20 71 39 H 95 01/23/24 23:10 73 30 H 96 01/23/24 23:00 61 H 148/84 90 L 01/23/24 22:50 73 31 H 93 L 01/23/24 22:40 73 31 H 92 L 01/23/24 22:30 75 6 L 148/84 93 L 01/23/24 22:20 78 22 92 L 01/23/24 22:10 79 33 H 93 L 01/23/24 22:00 80 36 H 143/77 92 L 01/23/24 21:50 71 36 H 91 L 01/23/24 21:40 70 33 H 93 L 01/23/24 21:30 71 32 H 94 L 01/23/24 21:20 70 37 H 94 L 01/23/24 21:10 71 28 H 94 L 01/23/24 21:00 72 36 H 106/58 94 L 01/23/24 20:50 73 27 H 94 L 01/23/24 20:40 73 16 93 L 01/23/24 20:30 72 92 L 01/23/24 20:20 69 37 H 92 L 01/23/24 20:10 70 94 L 01/23/24 20:00 97.4 F L 71 31 H 159/87 94 L 1 01/23/24 19:50 71 34 H 95 01/23/24 19:40 74 33 H 95 01/23/24 19:30 79 25 H 95 01/23/24 18:05 98 F 79 20 131/74 93 L 01/23/24 16:29 97.4 F L 16 01/23/24 16:11 93 L 01/23/24 15:59 80 20 123/61 94 L 01/23/24 13:30 73 20 110/58 96 01/23/24 12:19 76 22 111/56 100 Intake and Output 01/23/24 01/24/24 01/24/24 22:59 06:59 14:59 Intake Total 525 600 300 Output Total 250 650 200 Balance 275 -50 100 Intake: IV 300 Sodium Chloride 0.9% 1, 300 000 ml @ 75 mls/hr IV . [id number] [facility] Rx#:[id number] Intake, IV Titration 525 600 Amount Azithromycin 500 mg In 250 Sodium Chloride 0.9% 250 ml @ 250 mls/hr IVPB DAILY@2000 [facility] Rx#: [id number] Sodium Chloride 0.9% 1, 225 600 000 ml @ 75 mls/hr IV . [id number] [facility] Rx#:[id number] cefTRIAXone 2 gm In 50 Sodium Chloride 0.9% 50 ml @ 100 mls/hr IVPB Q24H [facility] Rx#:[id number] Output: Urine 250 650 200 Other: Voiding Method Urinal Urinal Weight 98.43 kg 102.5 kg - Constitutional General appearance: mild distress - EENT Eyes: EOMI, PERRLA ENT: hearing grossly normal, normal oropharynx - Neck Neck: no lymphadenopathy, other (Markedly congested neck veins on the right) Thyroid: bilateral: normal size - Respiratory Respiratory: right: diminished (Essentially absent breath sounds right side) - Cardiovascular Rhythm: regular Heart sounds: normal: S1, S2 - Gastrointestinal General gastrointestinal: normal bowel sounds, soft - Integumentary Integumentary: normal - Neurologic Neurologic: CNII-XII intact - Musculoskeletal Musculoskeletal: generalized weakness, strength equal bilaterally - Psychiatric Psychiatric: A&O x's 3, appropriate affect Results CBC & Chem 7: 01/24/24 05:38 01/24/24 11:24 Labs: Abnormal Lab Results - Last 24 Hours (Table) 01/23/24 01/23/24 01/23/24 Range/Units 11:26 14:06 16:57 MCHC (31.0-37.0) g/dL Lymphocytes # (1.0-4.8) k/uL APTT 19.4 L (22.0-30.0) sec D-Dimer 2.48 H (<0.60) mg/L FEU Potassium (3.5-5.1) mmol/L Carbon Dioxide (22-30) mmol/L Glucose (74-99) mg/dL POC Glucose (mg/dL) (70-110) mg/dL Hemoglobin A1c (<=6.0) % Troponin I 0.097 H* 0.092 H* (0.000-0.034) ng/mL TSH (0.465-4.680) mIU/L 01/23/24 01/23/24 01/24/24 Range/Units 19:29 20:20 05:38 MCHC (31.0-37.0) g/dL Lymphocytes # (1.0-4.8) k/uL APTT (22.0-30.0) sec D-Dimer (<0.60) mg/L FEU Potassium (3.5-5.1) mmol/L Carbon Dioxide (22-30) mmol/L Glucose (74-99) mg/dL POC Glucose (mg/dL) 137 H 120 H (70-110) mg/dL Hemoglobin A1c 7.2 H (<=6.0) % Troponin I (0.000-0.034) ng/mL TSH (0.465-4.680) mIU/L 01/24/24 01/24/24 01/24/24 Range/Units 05:38 05:38 11:24 MCHC 30.0 L (31.0-37.0) g/dL Lymphocytes # 0.2 L (1.0-4.8) k/uL APTT (22.0-30.0) sec D-Dimer (<0.60) mg/L FEU Potassium 5.7 H 5.7 H (3.5-5.1) mmol/L Carbon Dioxide 37 H (22-30) mmol/L Glucose 154 H (74-99) mg/dL POC Glucose (mg/dL) (70-110) mg/dL Hemoglobin A1c (<=6.0) % Troponin I (0.000-0.034) ng/mL TSH 0.219 L (0.465-4.680) mIU/L Comments: EKG image reviewed Chest x-ray: report reviewed CT scan - chest: report reviewed Assessment and Plan (1) Lung mass Narrative/Plan: The patient is currently with a large lung mass, with major compressive symp toms, as described in the HPI. It was discussed with the patient that the clinical appearance is highly Suggestive of malignancy. His current symptoms can potentially be temporized by use of steroids, which have been initiated. Case was discussed with the admitting service. For more specific treatment, we will need a tissue diagnosis. Case was discussed with pulmonary medicine. The patient is at increased risk for complications with bronchoscopy and biopsy. That procedure would also be needed to assess if there is potential for other palliative procedures such as stent placement. After detailed discussion with the patient and his family, he was agreeable to proceed with the same. We will await the results and tissue diagnosis. - Continue IV steroids - Radiation oncology has been consulted for possibility of palliative radiation - The patient will need additional imaging for staging, including brain MRI. This can be considered when he is clinically more stable. He is unlikely to be able to tolerate MRI of this time. Current Visit: Yes Status: Acute Code(s): R91.8 - OTHER NONSPECIFIC ABNORMAL FINDING OF LUNG FIELD SNOMED Code(s): 737096249 (2) Pleural effusion, right Narrative/Plan: In this context, a malignant etiologyIs a primary differential. Given the significant obstructive symptoms from the lung mass, however, drainage of the effusion is unlikely to provide any therapeutic benefit. This may need to be considered for staging purposes, Depending on results of other staging studies and assuming the patient is felt to be stable enough for the same Current Visit: Yes Status: Acute Code(s): J90 - PLEURAL EFFUSION, NOT ELSEWHERE CLASSIFIED SNOMED Code(s): 67236982
[2024-01-24] MEDS ORDERED: PHENYLEPHRINE-0.9% NACL SYG 1,000 MCG/10 ML SYRINGE ONE (13:51)
[2024-01-24] MEDS ORDERED: LIDOCAINE 1% INJ 10MG/ML (20 ML MDV) ONE (13:51)
[2024-01-24] MEDS ORDERED: KETAMINE HCL IN 0.9 % NACL 50 MG/5 ML SYRINGE ONE (13:51)
[2024-01-24] MEDS ORDERED: NEOSTIGMINE 1 MG/ML 10 ML VIAL ONE (13:51)
[2024-01-24] MEDS ORDERED: ROCURONIUM 10 MG/ML (5 ML VIAL) IV ONE (13:51)
[2024-01-24] MEDS ORDERED: PROPOFOL 10 MG/ML 20 ML VIAL IV ONE (13:51)
[2024-01-24] MEDS ORDERED: GLYCOPYRROLATE 0.2 MG/ML 2 ML VIAL ONE (13:51)
[2024-01-24] MEDS ORDERED: ePHEDrine 50 MG/ML 1 ML VIAL ONE (13:51)
[2024-01-24] MEDS ORDERED: SUGAMMADEX SODIUM 100 MG/ML SYR IV ONE (13:51)
[2024-01-24] MEDS: IV FLUID CONTINUATION 1,000 ML IV ONE ×2 (13:59→14:36)
[2024-01-24] MEDS: SODIUM CHLORIDE 0.9% 500 ML 500 ML IV ONE ×2 (14:36→14:51)
--- NOTE | 2024-01-24 15:48 | XR ---
EXAMINATION TYPE: XR chest 1V portable DATE OF EXAM: 01/24/2024 3:24 PM COMPARISON: Chest radiographs from same day CLINICAL INDICATION: Male, 73 years old with history of Tube placement; [facility] TECHNIQUE: XR chest 1V portable Frontal view of the chest. FINDINGS: Lungs/Pleura: Complete opacification of the right lung. There is no evidence of left pleural effusion , focal consolidation, or pneumothorax. Pulmonary vascularity: Unremarkable. Heart/mediastinum: Cardiomediastinal silhouette is unremarkable. Musculoskeletal: No acute osseous pathology. Other findings: None Lines/Tubes: Endotracheal tube with distal tip 3.0cm above the beverly. IMPRESSION: 1. Endotracheal tube above the beverly. 2. Complete opacification of the right lung correlate for large pleural effusion. [facility], Workstation: [facility], 01/24/2024 3:45 PM
[2024-01-24 15:56] LABS: ABG Base Excess 3.3 mmol/L; ABG HCO3 31 mmol/L (21-25); ABG Oxygen Saturation >100.0 % (94-97); ABG PCO2 63 mmHg (35-45); ABG PH 7.31 (7.35-7.45); ABG PO2 332 mmHg (83-108); ABG TCO2 33 mmol/L (19-24); Allen Test Performed? Yes
[2024-01-24 16:33] LABS: Appearance,Urine Clear (Clear); Bilirubin,Urine Negative (Negative); Blood,Urine Negative (Negative); Color,Urine Light Yellow; Glucose,Urine (UA) 1+ (Negative); Ketones,Urine 1+ (Negative); Leukocyte Esterase,Urine Negative (Negative); Nitrite,Urine Negative (Negative); PH, Urine 6.5 (5.0-8.0); Protein,Urine Trace (Negative); Specific Gravity,Urine 1.026 (1.001-1.035); Urobilinogen,Urine <2.0 mg/dL (<2.0)
--- NOTE | 2024-01-24 17:00 | P.PN ---
Subjective Progress Note Date: 01/24/24 A 73-year-old male patient, chronic smoker presented to the emergency department with progressive worsening shortness of breath over the past 2 to 3 months. The patient at the time of arrival was quite short of breath and he has inspiratory stridor. CT of the chest was done and the patient was found to have a right hilar mass measuring 9.9 x 4.8 cm in size and the mass extended into the right suprahilar area causing mass effect on the trachea with significant narrowing of the distal trachea and there is also an abrupt cut off of the right mainstem bronchus due to mass. There is also atelectatic changes involving the right lung and a small to moderate-sized right-sided pleural effusion and volume loss involving the right hemithorax with elevation of the right hemidiaphragm. There was also evidence of mediastinal lymphadenopathy. The tumor is extending into the trachea and there is obvious endobronchial component. The patient has been having episodes of hemoptysis in addition. In the emergency, the patient briefly went into atrial fibrillation with rapid medical response. Even before Cardizem drip was started, the patient went into normal sinus rhythm. Currently he is sitting up in a chair and is on oxygen 1 L with a pulse ox of 93%. He has a hoarse voice. No altered mentation. No headaches. No chest pain. Initial lactic acid level was at 2.3 dropped down to 1.3. Troponins are 0.07 and 0.09 respectively and a proBNP level is 1000. The white cell count is at 8.9 with a hemoglobin 14.1. He has been encountering weight loss. On 01/24/2024, the patient is being seen in follow-up in the intensive care unit. The patient seems to be slightly more comfortable compared to yesterday. Nevertheless, he continues to have respiratory stridor and there is also a component of expiratory stridor appreciated on today's examination. He is afebrile. He is hemodynamically stable. Not having any active hemoptysis. Blood work from today shows a sodium of 141, potassium level is at 5.7, BUN is 19 with a creatinine of 0.7. LFTs are normal. TSH is 0.21 and the free T4 is at 1.1. UA showing +1 ketones and +1 glucose. The WBC count is at 7.5 with a hip of 13.3 and platelet count of 231. A follow-up chest x-ray done today shows worsening opacification of the right lung with complete atelectasis and presence of right-sided pleural effusion. I had a nice discussion with the patient. I also contacted his sister, Abby, who is currently in [place] and I discussed the situation with her. The patient will need tissue diagnosis and as such the patient will need a bronchoscopy for airway inspection and biopsies. The patient and the sister was made aware that he is at very high risk of remaining on the mechanical ventilator post bronchoscopy because of his extremely compromised respiratory status. The patient opted to proceed with the procedure as the patient was very much interested in establishing a tissue diagnosis and interested in subsequent treatment. Based on that, the patient underwent a bronchoscopy in the endoscopy suite. The patient was intubated by [employer]. Airway inspection showed severe anatomic distortion in the distal trachea, complete effacement of the beverly, significant narrowing of the right mainstem bronchus with endobronchial tumor going circumferentially around the right mainstem bronchus at its origin and invading the tracheal wall causing mass effect on the right lateral wall of the trachea. Right upper lobe was completely plugged with endobronchial tumor. Bronchus intermedius was narrowed. Right lower bronchus was extremely narrowed and was plugged with endobronchial tumor. Middle lobe was not identified. The left mainstem bronchus orifice was also significant narrowed probably down to its 50% of his normal caliber. Endobronchial biopsies from the trachea and right mainstem bronchus was done. Brushings and lavage was also done. Bronchoscope was removed. The patient was unable to extubate and the patient was accordingly Intubated on the mechanical ventilator and he was moved to the intensive care unit. Currently is on propofol. He is on the mechanical ventilator on assist-control mode rate of 20, tidal volume of 450, FiO2 of 100% with a PEEP of 8. Awaiting follow-up chest x-ray and blood gas. Hemodynamically stable. Objective - Vital Signs Vital signs: Vital Signs Temp 97.4 F L 01/24/24 08:00 Pulse 78 01/24/24 09:00 Resp 16 01/24/24 09:00 BP 154/109 01/24/24 09:00 Pulse Ox 96 01/24/24 09:00 FiO2 1 01/23/24 20:00 Intake & Output 01/23/24 01/24/24 01/24/24 18:59 06:59 18:59 Intake Total 1125 150 Output Total 900 200 Balance 225 -50 Weight 98.43 kg 102.5 kg Intake: Intake, IV Titration 1125 150 Amount Azithromycin 500 mg In 250 Sodium Chloride 0.9% 250 ml @ 250 mls/hr IVPB DAILY@2000 [facility] Rx#: [id number] Sodium Chloride 0.9% 1, 825 150 000 ml @ 75 mls/hr IV . [id number] [facility] Rx#:[id number] cefTRIAXone 2 gm In 50 Sodium Chloride 0.9% 50 ml @ 100 mls/hr IVPB Q24H [facility] Rx#:[id number] Output: Urine 900 200 Other: Voiding Method Urinal Urinal - Exam The patient intubated on the mechanical ventilator, orogastric and orotracheal tube are both in place and the patient is currently on propofol. Head exam is unremarkable. No scleral icterus or corneal arcus noted. Neck is without jugular venous distension, thyromegaly, or carotid bruits. Carotid upstrokes are brisk bilaterally. Lungs marked diminished breath sounds/absent on the right compared to left. Examination of the left side is within normal limits. Cardiac exam reveals the PMI to be normally sized and situated. Rhythm is regular. First and second heart sounds normal. No murmurs, rubs or gallops. Abdominal exam reveals normal bowel sounds, no masses, no organomegaly and no aortic enlargement. Extremities are nonedematous and both femoral and pedal pulses are normal. Examination of the skin revealed no evidence of significant rashes, suspicious appearing nevi or other concerning lesions. Neurologically, the patient is sedated - Labs CBC & Chem 7: 01/24/24 05:38 01/24/24 11:24 Labs: Abnormal Lab Results - Last 24 Hours (Table) 01/23/24 01/23/24 01/23/24 Range/Units 11:26 11:26 11:26 MCHC 30.1 L (31.0-37.0) g/dL Lymphocytes # 0.9 L (1.0-4.8) k/uL APTT 19.4 L (22.0-30.0) sec D-Dimer 2.48 H (<0.60) mg/L FEU Potassium 5.3 H (3.5-5.1) mmol/L Carbon Dioxide 31 H (22-30) mmol/L BUN 26 H (9-20) mg/dL Glucose 255 H (74-99) mg/dL POC Glucose (mg/dL) (70-110) mg/dL Hemoglobin A1c (<=6.0) % Plasma Lactic Acid Yousuf (0.7-2.0) mmol/L Troponin I (0.000-0.034) ng/mL TSH (0.465-4.680) mIU/L 01/23/24 01/23/24 01/23/24 Range/Units 11:26 11:26 14:06 MCHC (31.0-37.0) g/dL Lymphocytes # (1.0-4.8) k/uL APTT (22.0-30.0) sec D-Dimer (<0.60) mg/L FEU Potassium (3.5-5.1) mmol/L Carbon Dioxide (22-30) mmol/L BUN (9-20) mg/dL Glucose (74-99) mg/dL POC Glucose (mg/dL) (70-110) mg/dL Hemoglobin A1c (<=6.0) % Plasma Lactic Acid Yousuf 2.3 H* (0.7-2.0) mmol/L Troponin I 0.073 H* 0.097 H* (0.000-0.034) ng/mL TSH (0.465-4.680) mIU/L 01/23/24 01/23/24 01/23/24 Range/Units 16:57 19:29 20:20 MCHC (31.0-37.0) g/dL Lymphocytes # (1.0-4.8) k/uL APTT (22.0-30.0) sec D-Dimer (<0.60) mg/L FEU Potassium (3.5-5.1) mmol/L Carbon Dioxide (22-30) mmol/L BUN (9-20) mg/dL Glucose (74-99) mg/dL POC Glucose (mg/dL) 137 H 120 H (70-110) mg/dL Hemoglobin A1c (<=6.0) % Plasma Lactic Acid Yousuf (0.7-2.0) mmol/L Troponin I 0.092 H* (0.000-0.034) ng/mL TSH (0.465-4.680) mIU/L 01/24/24 01/24/24 01/24/24 Range/Units 05:38 05:38 05:38 MCHC 30.0 L (31.0-37.0) g/dL Lymphocytes # 0.2 L (1.0-4.8) k/uL APTT (22.0-30.0) sec D-Dimer (<0.60) mg/L FEU Potassium 5.7 H (3.5-5.1) mmol/L Carbon Dioxide 37 H (22-30) mmol/L BUN (9-20) mg/dL Glucose 154 H (74-99) mg/dL POC Glucose (mg/dL) (70-110) mg/dL Hemoglobin A1c 7.2 H (<=6.0) % Plasma Lactic Acid Yousuf (0.7-2.0) mmol/L Troponin I (0.000-0.034) ng/mL TSH 0.219 L (0.465-4.680) mIU/L Assessment and Plan Plan: Right upper lobe mass measuring 9.9 x 4.8 cm in size extending to the right suprahilar area and causing mass effect on the distal trachea with abrupt cut ultrasound of the right mainstem bronchus/bronchus intermedius and right upper lobe bronchus. The patient also has mediastinal lymphadenopathy and atelectatic changes involving the right lung and mild to moderate-sized right-sided pleural effusion and volume loss involving the right hemithorax. Findings are highly suspicious for central malignancy/primary bronchogenic cancer. Rule out underlying small cell lung cancer. The chest x-ray from 01/24/2024 showed complete opacification of the right lung. Bronchoscopy was done and the patient was found to have severe anatomic distortion of the distal trachea and main beverly, there was endobronchial tumor growing circumferentially around the orifice of the right mainstem bronchus and there was considerable narrowing in the right mainstem bronchus and the right upper lobe bronchus was completely occupied by tumor and was occluded and there was also endobronchial tumor obstructing the distal bronchus intermedius and right lower lobe bronchus. Right middle lobe bronchus was not identified. There was also significant anatomic narrowing of the left mainstem bronchus due to endobronchial tumor involving the main beverly with narrowing of the orifice by around 50%. Endobronchial biopsies were performed. Post bronchoscopy, the patient was unable to extubate and the patient as such was kept intubated on the mechanical ventilator Acute hypoxic/hypercapnic respiratory failure secondary to above and the patient was kept intubated on mechanical ventilator post bronchoscopy Acute stridor, inspiratory and expiratory related to tumor causing significant airway compromise of the left mainstem bronchus and the distal trachea and main beverly. Impending SVC syndrome with positive JVDs without facial or upper extremity swelling Acute on chronic shortness of breath secondary to above Hemoptysis, likely secondary to the right upper lobe mass extending into the right mainstem bronchus/tracheal wall Paroxysmal A-fib, currently back in normal sinus rhythm Troponin leak COPD Chronic smoking Hyperkalemia Plan Hypokalemia was treated with bicarb and D50 insulin and repeat potassium level is pending The patient will be kept intubated on mechanical ventilator Keep the patient sedated on propofol Obtain a follow-up chest x-ray and blood gases and we will perform the necessary ventilator changes The airway inspection showed significant airway compromise of the distal trachea, main beverly, and right mainstem bronchus with complete obstruction of the distal bronchus intermedius and the right upper lobe and there was considerable narrowing of the left mainstem bronchus orifice Continue steroids Continue bronchodilators Initiate enteral feeding for nutritional support Very difficult extubation based on the significant airway compromise and it is very much likely the patient will not be able to extubate of the mechanical ventilator due to the significant abnormalities found on the bronchoscopy. Will discuss the finding with the family and with medical oncology and radiation oncology Will be awaiting final pathology results from the endobronchial biopsies performed today Overall prognosis is poor. Further prognostication will follow once tissue diagnosis established a Critical care evaluation that was done in more than 1 hour, excluding time to do any procedures. Time with Patient: Greater than 30
--- NOTE | 2024-01-24 17:08 | P.PCN ---
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 Right middle lobe was not visualized. Narrowing of the left mainstem bronchus due to endobronchial tumor invading the main beverly and the caliber of the airways reduced by around 50% Endobronchial tumor occupying the trachea, main beverly, right mainstem bronchus, bronchus intermedius with mucosal friable changes and bleeding causing secondary hemoptysis Procedure(s) Performed: Flexible bronchoscopy Endobronchial biopsies of the tracheal and right main stem endobronchial tumor Endobronchial brushings of the trachea and right mainstem tumor Bronchioloalveolar lavage of the right mainstem bronchus Anesthesia: GETA Surgeon: Olesya Riojas Estimated Blood Loss (ml): 5 Pathology: other Condition: critical Disposition: ICU Operative Findings: This procedure was done in the endoscopy suite. The patient was intubated by LENDING CONSULTANT. Intubation process was done via a glide scope. No obvious vocal cord paralysis was noted on examining the vocal cord. Following that, the patient was intubated by a #8 Orotracheal tube and the patient was placed on sedation by LENDING CONSULTANT. Following that, the flexor bronchoscope was easily passed through the orotracheal tube and was advanced into the mid and the lower trachea. Mid trachea was normal and there was considerable narrowing of the distal trachea as there was an obvious mass effect on his lateral wall with obvious endobronchial tumor growing on the lateral wall of the distal trachea causing significant narrowing of the lumen of the distal trachea with reduction of the lumen by at least 50%. The beverly was significantly effaced by endobronchial tumor that was quite friable and it was essentially invading the main beverly causing significant narrowing of the orifice of the right mainstem bronchus. Right mainstem bronchus was considerably narrowed. Right upper lobe bronchus was not identified it was completely obstructed by endobronchial tumor. The distal right mainstem bronchus/bronchus intermedius area was progressively narrowed and it was subsequently found to be occluded by endobronchial tumor. The various segments of the right lower lobe was not identified. Right middle lobe was also obstructed and not identified. As for the examination of the left side, the orifice of the left mainstem bronchus was also narrowed by around 50% of his normal caliber. I was able to pass the bronchoscope into the left mainstem bronchus and the examination of the left upper lobe and the left lower lobe bronchus and the previous 8 segments of the left was done and they were within normal limits. There was some bloody secretions identified even on the left side that were suctioned out easily. Following that, endobronchial biopsies of the tracheal mass in the right mainstem bronchus endobronchial tumor was done and postbiopsy, endobronchial brushings of the same involved area was done. Some bleeding was encountered from the mucosal surfaces. The area was irrigated by ice cold saline and bronchial lavage of the right mainstem bronchus was done. A total of 100 cc of saline was infused and 25 to 30 cc of aspirate was suctioned back and the aspirate was obviously bloody. Therapeutic airway suctioning was done and the flexible bronchoscope was removed. The patient was unable to extubated the patient became hypoxic and tachypneic encountered respiratory distress as the patient was weaned off the sedation and his paralytic was reversed. Based on that, the patient was kept intubated on the m [employer] ventilator. He was started on propofol and moved to the intensive care unit for further care.
[2024-01-24 18:56] LABS: Glucose,Whole Blood 169 mg/dL (70-110)
[2024-01-24] MEDS: IPRATROPIUM-ALBUTEROL 3 ML NEB INHALATION SCH (19:51)
[2024-01-24] MEDS: CHLORHEXIDINE GLUCONATE 15 ML CUP MUCOUS MEM SCH (20:29)
[2024-01-25 05:29] LABS: ABG Base Excess 5.7 mmol/L; ABG HCO3 31 mmol/L (21-25); ABG Oxygen Saturation 98.9 % (94-97); ABG PCO2 47 mmHg (35-45); ABG PH 7.43 (7.35-7.45); ABG PO2 113 mmHg (83-108); ABG TCO2 33 mmol/L (19-24); Allen Test Performed? Yes
[2024-01-25 06:20] LABS: African American GFR (CKD) >90 (>60 ml/min/1.73 sqM); Anion Gap 2 mmol/L; Blood Urea Nitrogen 18 mg/dL (9-20); Calcium 9.6 mg/dL (8.4-10.2); Carbon Dioxide 28 mmol/L (22-30); Chloride 107 mmol/L (98-107); Glucose 172 mg/dL (74-99); Magnesium 1.8 mg/dL (1.6-2.3); Non-African American GFR(CKD) >90 (>60 ml/min/1.73 sqM); Potassium 4.5 mmol/L (3.5-5.1); Sodium 137 mmol/L (137-145)
[2024-01-25 06:25] LABS: Basophils % (A) 0 %; Eosinophils % (A) 0 %; HGB 12.1 gm/dL (13.0-17.5); Hypochromasia Slight; Lymphocytes # (A) 0.9 k/uL (1.0-4.8); Lymphocytes % (A) 10 %; MCH 29.5 pg (25.0-35.0); MCHC 30.9 g/dL (31.0-37.0); MCV 95.3 fL (80.0-100.0); Monocytes # (A) 0.6 k/uL (0-1.0); Monocytes % (A) 7 %; Neutrophils % (A) 82 %; Platelet Count 209 k/uL (150-450); WBC 8.5 k/uL (3.8-10.6)
[2024-01-25] MEDS ORDERED: Magnesium Replacement Protocol 1 EACH MISC MISCELLANE PRN (07:29)
[2024-01-25] MEDS: MAGNESIUM SULFATE-D5W PMX 1 GM in DEXTROSE/WATER 1 100ML.BAG IVPB ONE (08:11)
--- NOTE | 2024-01-25 08:24 | XR ---
EXAMINATION TYPE: XR chest 1V portable DATE OF EXAM: 01/25/2024 3:41 AM COMPARISON: 01/24/2024 CLINICAL INDICATION: Male, 73 years old with history of Tube placement; TECHNIQUE: XR chest 1V portable Frontal view of the chest. FINDINGS: Lungs/Pleura: Near complete opacification of the right lung similar prior There is no evidence of lef t pleural effusion, focal consolidation, or pneumothorax. Pulmonary vascularity: Unremarkable. Heart/mediastinum: Cardiomediastinal silhouette is unremarkable. Musculoskeletal: No acute osseous pathology. Other findings: None Lines/Tubes: Endotracheal tube with distal tip 3.7 cm above the beverly. Nasogastric tube with its distal tip and side-port projecting under the diaphragm. IMPRESSION: Endotracheal tube in appropriate position. Near complete opacification of the right lung. [facility], , 01/25/2024 8:22 AM
[2024-01-25] MEDS ORDERED: DEXTROSE 50% SYRINGE 50 ML IVP PRN ×2 (10:02)
[2024-01-25 13:10] LABS: Glucose,Whole Blood 140 mg/dL (70-110)
[2024-01-25] MEDS: INSULIN ASPART (NovoLOG) 100 UNIT/ML VIAL SQ SCH ×2 (14:16→17:02)
--- NOTE | 2024-01-25 14:41 | P.CRDCN ---
History of Present Illness Consult date: 01/25/24 History of present illness: The patient is a 73-year-old gentleman who was admitted to the hospital with progressive exertional dyspnea and he underwent workup which revealed right upper lobe mass. The patient was admitted to the intensive care unit. He underwent a workup for the mass including bronchoscopy and biopsy. No past medical history of CAD or hypertension or dyslipidemia or diabetes. We consulted to see the patient because of paroxysmal atrial fibrillation. The patient has been maintaining normal sinus mechanism throughout his hospital stay till earlier today when he went into an A-fib with RVR and continues to be in A- fib with RVR. Hemodynamically he is stable with his resting heart rate around 140 bpm but the pressure has been stable. He is not on any vasopressors. He is experiencing shortness of breath with exertion but no symptoms of any dizziness or lightheadedness or heart racing or fluttering or presyncope or syncope and no symptoms of any chest pain or chest discomfort. The EKG initially showed sinus mechanism but the bedside EKG in the intensive care and it showed A-fib with RVR. After discussing the case with the critical care team we decided not to pursue with anticoagulation given the high risk of bleeding. Meanwhile I am going to start the patient on Cardizem IV at 5 mg/h titrated for the heart rate if the pressure permits. Beside that we are going to obtain an echocardiogram with Doppler. No prior history of atrial fibrillation according to the patient as well as according to the chart. The physical examination is remarkable for irregular rhythm with distant heart sounds and bilateral expiratory wheezing and no edema was noted in the lower extremities Assessment Right upper lobe mass with adenopathy in the mediastinum Hypoxic respiratory failure Impending SVC syndrome Hemoptysis A-fib with RVR Multiple comorbid conditions Smoking Plan Start the patient on Cardizem IV Avoid any anticoagulation at this point Obtain an echocardiogram with Doppler Follow-up with the patient Past Medical History Past Medical History: No Reported History History of Any Multi-Drug Resistant Organisms: None Reported Past Surgical History: Hernia Repair Additional Past Surgical History / Comment(s): splenectomy Past Anesthesia/Blood Transfusion Reactions: No Reported Reaction Past Psychological History: No Psychological Hx Reported Past Alcohol Use History: Occasional Past Drug Use History: None Reported Medications and Allergies Home Medications Medication Instructions Recorded Confirmed Type No Known Home Medications 01/23/24 01/23/24 History Allergies Allergy/AdvReac Type Severity Reaction Status Date / Time No Known Allergies Allergy Verified 01/23/24 13:47 Physical Exam Vitals: Vital Signs Temp Pulse Resp BP Pulse Ox FiO2 01/25/24 14:00 78 30 H 143/86 97 60 01/25/24 13:00 79 30 H 128/77 98 60 01/25/24 12:15 60 01/25/24 12:00 34 H 125/80 97 60 01/25/24 11:00 75 37 H 101/88 98 60 01/25/24 10:15 78 25 H 134/74 96 01/25/24 10:00 77 20 141/74 97 01/25/24 09:45 79 20 143/80 96 01/25/24 09:30 82 20 126/66 98 01/25/24 09:15 76 20 155/78 100 01/25/24 09:00 80 20 138/68 97 01/25/24 08:45 80 20 128/77 96 01/25/24 08:30 72 20 123/68 97 01/25/24 08:15 67 20 124/66 100 01/25/24 08:00 65 20 114/64 100 50 01/25/24 07:56 64 01/25/24 07:45 63 28 H 109/61 100 01/25/24 07:44 60 01/25/24 07:41 50 01/25/24 07:30 65 20 106/58 100 50 01/25/24 07:15 59 L 20 102/59 100 01/25/24 07:00 62 20 96/57 100 01/25/24 06:45 61 20 96/57 100 01/25/24 06:30 62 20 97/55 100 01/25/24 06:15 62 20 101/57 100 01/25/24 06:00 64 20 127/70 100 01/25/24 05:45 64 20 114/62 100 01/25/24 05:30 64 20 111/61 100 01/25/24 05:15 65 20 121/66 100 01/25/24 05:00 65 20 112/60 100 01/25/24 04:45 64 20 109/59 100 01/25/24 04:30 64 20 107/60 100 01/25/24 04:15 64 20 119/68 100 01/25/24 04:00 98.0 F 69 20 112/61 100 50 01/25/24 03:50 50 01/25/24 03:45 65 20 116/61 100 01/25/24 03:30 64 20 106/57 100 01/25/24 03:15 63 20 103/59 100 01/25/24 03:00 64 20 102/57 100 01/25/24 02:45 63 20 99/56 100 01/25/24 02:30 63 20 99/56 100 01/25/24 02:15 64 20 97/56 100 01/25/24 02:00 64 26 H 96/57 100 01/25/24 01:45 65 27 H 99/56 100 01/25/24 01:30 65 20 104/56 100 01/25/24 01:15 66 27 H 108/63 100 01/25/24 01:00 65 20 104/60 100 01/25/24 00:45 65 20 106/60 99 01/25/24 00:30 66 20 116/65 99 01/25/24 00:15 66 20 113/60 100 01/25/24 00:08 50 01/25/24 00:04 65 20 113/60 99 01/25/24 00:00 98.1 F 64 20 101/56 99 50 01/24/24 23:45 64 69 H 101/57 99 01/24/24 23:30 65 20 102/56 99 01/24/24 23:15 64 27 H 102/56 99 01/24/24 23:00 64 25 H 98/57 99 01/24/24 22:45 65 20 109/58 99 24 22:30 65 20 97/54 99 24 22:15 65 20 100/57 99 24 22:00 65 20 104/56 99 24 21:45 66 20 102/60 99 24 21:30 71 20 99/57 99 24 21:15 66 20 99/56 99 24 21:00 66 102/58 99 24 20:45 67 104/58 99 24 20:30 66 100/57 99 24 20:15 66 110/61 99 24 20:04 68 01/24/24 20:00 97.7 F 64 65 H 120/65 100 50 01/24/24 19:51 64 01/24/24 19:45 64 20 119/70 100 01/24/24 19:42 50 01/24/24 19:39 50 01/24/24 19:30 64 35 H 114/64 100 01/24/24 19:15 64 28 H 114/65 100 01/24/24 19:00 64 20 114/65 100 50 01/24/24 18:45 64 20 113/65 100 01/24/24 18:30 64 20 119/66 100 01/24/24 18:15 64 20 108/59 100 01/24/24 18:00 64 20 106/60 100 50 01/24/24 17:45 64 22 115/66 99 01/24/24 17:30 65 20 110/59 99 01/24/24 17:15 66 20 110/61 100 01/24/24 17:00 67 20 111/61 99 50 01/24/24 16:45 68 20 109/57 98 01/24/24 16:30 68 20 104/55 97 01/24/24 16:15 74 20 103/53 95 01/24/24 16:08 50 01/24/24 16:00 73 20 103/53 98 50 01/24/24 15:45 97.4 F L 72 13 92/61 92 L 01/24/24 15:30 75 20 83/48 91 L 01/24/24 15:15 76 21 92/48 92 L 100 01/24/24 15:00 100 Intake and Output 01/24/24 01/25/24 01/25/24 22:59 06:59 14:59 Intake Total 762.043 890.415 776.762 Output Total 985 450 610 Balance -222.957 440.415 166.762 Intake: IV 525 675 725 Magnesium Sulfate-D5w Pmx 200 1 gm In Dextrose/Water 1 100ml.bag @ 100 mls/hr IVPB ONCE ONE Rx#: [id number] Sodium Chloride 0.9% 1, 525 675 525 000 ml @ 75 mls/hr IV . [id number] [facility] Rx#:[id number] Intake, IV Titration 237.043 215.415 51.762 Amount propofoL 1,000 mg In 237.043 215.415 51.762 Empty Bag 1 bag @ 15 MCG/ KG/MIN 9.225 mls/hr IV . [id number] [facility] Rx#:[id number] Output: Gastric Drainage 100 Urine 885 450 610 Other: Voiding Method Indwelling Catheter Indwelling Catheter Indwelling Catheter Weight 106.8 kg Results 01/25/24 05:26 01/25/24 05:26 CBC 01/25/24 Range/Units 05:26 WBC 8.5 (3.8-10.6) k/uL RBC 4.10 L (4.30-5.90) m/uL Hgb 12.1 L (13.0-17.5) gm/dL Hct 39.0 (39.0-53.0) % Plt Count 209 (150-450) k/uL Comprehensive Metabolic Panel 01/24/24 01/25/24 Range/Units 18:55 05:26 Sodium 137 (137-145) mmol/L Potassium 4.3 4.5 (3.5-5.1) mmol/L Chloride 107 (98-107) mmol/L Carbon Dioxide 28 (22-30) mmol/L BUN 18 (9-20) mg/dL Creatinine 0.62 L (0.66-1.25) mg/dL Glucose 172 H (74-99) mg/dL Calcium 9.6 (8.4-10.2) mg/dL Current Medications Generic Name Dose Route Start Last Admin Trade Name Freq PRN Reason Stop Dose Admin Acetaminophen 650 mg 01/23/24 15:20 Acetaminophen Tab 325 Mg Tab PO Q6HR PRN Mild Pain or Fever > 100.5 Albuterol/Ipratropium 3 ml 01/24/24 20:00 01/25/24 11:42 Ipratropium-Albuterol 3 Ml Neb INHALATION Not Given RT-QID [facility] Dexamethasone Sodium Phosphate 6 mg 01/23/24 18:00 01/25/24 13:14 Dexamethasone Sod Phosphate 10 Mg/Ml 1 Ml Vial IVP 6 mg Q6H JAIR Administration Dextrose/Water 25 ml 01/25/24 10:02 Dextrose 50% Syringe 50 Ml IVP PER PROTOCOL PRN Hypoglycemia Protocol Dextrose/Water 50 ml 01/25/24 10:02 Dextrose 50% Syringe 50 Ml IVP PER PROTOCOL PRN Hypoglycemia Protocol Sodium Chloride 1,000 mls @ 75 mls/hr 01/23/24 15:30 01/24/24 21:36 Saline 0.9% IV 75 mls/hr .[id number] JAIR Administration Diltiazem HCl 125 mg/ Sodium 125 mls @ 5 mls/hr 01/25/24 12:30 Chloride IV .Q24H [facility] Protocol 5 MG/HR Insulin Aspart 0 unit 01/25/24 17:30 Insulin Aspart (Novolog) 100 Unit/Ml Vial SQ ACHS [facility] Protocol Miscellaneous Information 1 each 01/25/24 07:29 Magnesium Replacement Protocol 1 Each Misc MISCELLANE DAILY PRN Per Protocol Protocol Naloxone HCl 0.2 mg 01/23/24 15:20 Naloxone 0.4 Mg/Ml 1 Ml Vial IV Q2M PRN Opioid Reversal Nicotine 1 patch 01/24/24 00:02 01/25/24 08:12 Nicotine 21mg/24hr Patch TRANSDERM 1 patch DAILY JAIR Administration Nitroglycerin 0.4 mg 01/23/24 13:45 Nitroglycerin Sl Tabs 0.4 Mg Tab SUBLINGUAL Q5M PRN Chest Pain Intake and Output 01/24/24 01/25/24 01/25/24 22:59 06:59 14:59 Intake Total 762.043 890.415 776.762 Output Total 985 450 610 Balance -222.957 440.415 166.762 Intake: IV 525 675 725 Magnesium Sulfate-D5w Pmx 200 1 gm In Dextrose/Water 1 100ml.bag @ 100 mls/hr IVPB ONCE ONE Rx#: [id number] Sodium Chloride 0.9% 1, 525 675 525 000 ml @ 75 mls/hr IV . [id number] [facility] Rx#:[id number] Intake, IV Titration 237.043 215.415 51.762 Amount propofoL 1,000 mg In 237.043 215.415 51.762 Empty Bag 1 bag @ 15 MCG/ KG/MIN 9.225 mls/hr IV . [id number] [facility] Rx#:[id number] Output: Gastric Drainage 100 Urine 885 450 610 Other: Voiding Method Indwelling Catheter Indwelling Catheter Indwelling Catheter Weight 106.8 kg 01/25/24 05:26 01/25/24 05:26
--- NOTE | 2024-01-25 15:28 | P.PN ---
Subjective Progress Note Date: 01/25/24 A 73-year-old male patient, chronic smoker presented to the emergency department with progressive worsening shortness of breath over the past 2 to 3 months. The patient at the time of arrival was quite short of breath and he has inspiratory stridor. CT of the chest was done and the patient was found to have a right hilar mass measuring 9.9 x 4.8 cm in size and the mass extended into the right suprahilar area causing mass effect on the trachea with significant narrowing of the distal trachea and there is also an abrupt cut off of the right mainstem bronchus due to mass. There is also atelectatic changes involving the right lung and a small to moderate-sized right-sided pleural effusion and volume loss involving the right hemithorax with elevation of the right hemidiaphragm. There was also evidence of mediastinal lymphadenopathy. The tumor is extending into the trachea and there is obvious endobronchial component. The patient has been having episodes of hemoptysis in addition. In the emergency, the patient briefly went into atrial fibrillation with rapid medical response. Even before Cardizem drip was started, the patient went into normal sinus rhythm. Currently he is sitting up in a chair and is on oxygen 1 L with a pulse ox of 93%. He has a hoarse voice. No altered mentation. No headaches. No chest pain. Initial lactic acid level was at 2.3 dropped down to 1.3. Troponins are 0.07 and 0.09 respectively and a proBNP level is 1000. The white cell count is at 8.9 with a hemoglobin 14.1. He has been encountering weight loss. On 01/24/2024, the patient is being seen in follow-up in the intensive care unit. The patient seems to be slightly more comfortable compared to yesterday. Nevertheless, he continues to have respiratory stridor and there is also a component of expiratory stridor appreciated on today's examination. He is afebrile. He is hemodynamically stable. Not having any active hemoptysis. Blood work from today shows a sodium of 141, potassium level is at 5.7, BUN is 19 with a creatinine of 0.7. LFTs are normal. TSH is 0.21 and the free T4 is at 1.1. UA showing +1 ketones and +1 glucose. The WBC count is at 7.5 with a hip of 13.3 and platelet count of 231. A follow-up chest x-ray done today shows worsening opacification of the right lung with complete atelectasis and presence of right-sided pleural effusion. I had a nice discussion with the patient. I also contacted his sister, Abby, who is currently in [place] and I discussed the situation with her. The patient will need tissue diagnosis and as such the patient will need a bronchoscopy for airway inspection and biopsies. The patient and the sister was made aware that he is at very high risk of remaining on the mechanical ventilator post bronchoscopy because of his extremely compromised respiratory status. The patient opted to proceed with the procedure as the patient was very much interested in establishing a tissue diagnosis and interested in subsequent treatment. Based on that, the patient underwent a bronchoscopy in the endoscopy suite. The patient was intubated by [employer]. Airway inspection showed severe anatomic distortion in the distal trachea, complete effacement of the beverly, significant narrowing of the right mainstem bronchus with endobronchial tumor going circumferentially around the right mainstem bronchus at its origin and invading the tracheal wall causing mass effect on the right lateral wall of the trachea. Right upper lobe was completely plugged with endobronchial tumor. Bronchus intermedius was narrowed. Right lower bronchus was extremely narrowed and was plugged with endobronchial tumor. Middle lobe was not identified. The left mainstem bronchus orifice was also significant narrowed probably down to its 50% of his normal caliber. Endobronchial biopsies from the trachea and right mainstem bronchus was done. Brushings and lavage was also done. Bronchoscope was removed. The patient was unable to extubate and the patient was accordingly Intubated on the mechanical ventilator and he was moved to the intensive care unit. Currently is on propofol. He is on the mechanical ventilator on assist-control mode rate of 20, tidal volume of 450, FiO2 of 100% with a PEEP of 8. Awaiting follow-up chest x-ray and blood gas. Hemodynamically stable. On 01/25/2024, the patient remains on the mechanical ventilator. He is on assist-control mode with rate of 20, tidal volume of 500, FiO2 of 50% with a PEEP of 8. Blood gas showed a pH of 7.43 with a pCO2 of 47 and pO2 of 115. The patient is on propofol running at 50 mcg/kg/min. Normal saline is a rate of 75 cc an hour. Noted the patient was unable to extubate post bronchoscopy due to significant airway compromise as discussed earlier. Biopsies were performed. Results are still pending for now. A follow-up chest x-ray was done today and the patient was found to have near complete opacification of the right lung. Left lung is essentially clear. The white cell count of 8.5, hemoglobin 12.1 and a platelet count of 209. The BUN is 18 with a creatinine of 0.6 and a sodium levels at 137. Objective - Vital Signs Vital signs: Vital Signs Temp 98.0 F 01/25/24 04:00 Pulse 72 01/25/24 08:30 Resp 20 01/25/24 08:30 BP 123/68 01/25/24 08:30 Pulse Ox 97 01/25/24 08:30 FiO2 50 01/25/24 08:00 Intake & Output 01/24/24 01/25/24 01/25/24 18:59 06:59 18:59 Intake Total 6407.110 9136.458 226.762 Output Total 1025 610 50 Balance 825.000 717.458 176.762 Weight 102.5 kg 106.8 kg Intake: IV 1750 975 175 Magnesium Sulfate-D5w Pmx 100 1 gm In Dextrose/Water 1 100ml.bag @ 100 mls/hr IVPB ONCE ONE Rx#: [id number] Sodium Chloride 0.9% 1, 750 975 75 000 ml @ 75 mls/hr IV . [id number] [facility] Rx#:[id number] Intake, IV Titration 100.000 352.458 51.762 Amount propofoL 1,000 mg In 100.000 352.458 51.762 Empty Bag 1 bag @ 15 MCG/ KG/MIN 9.225 mls/hr IV . [id number] [facility] Rx#:[id number] Output: Gastric Drainage 100 Urine 925 610 50 Other: Voiding Method Indwelling Catheter Indwelling Catheter Indwelling Catheter - Exam The patient intubated on the mechanical ventilator, orogastric and orotracheal tube are both in place and the patient is currently on propofol. Head exam is unremarkable. No scleral icterus or corneal arcus noted. Neck is without jugular venous distension, thyromegaly, or carotid bruits. Carotid upstrokes are brisk bilaterally. Lungs marked diminished breath sounds/absent on the right compared to left. Examination of the left side is within normal limits. Cardiac exam reveals the PMI to be normally sized and situated. Rhythm is regular. First and second heart sounds normal. No murmurs, rubs or gallops. Abdominal exam reveals normal bowel sounds, no masses, no organomegaly and no aortic enlargement. Extremities are nonedematous and both femoral and pedal pulses are normal. Examination of the skin revealed no evidence of significant rashes, suspicious appearing nevi or other concerning lesions. Neurologically, the patient is sedated - Labs CBC & Chem 7: 01/25/24 05:26 01/25/24 05:26 Labs: Abnormal Lab Results - Last 24 Hours (Table) 01/24/24 01/24/24 01/24/24 Range/Units 11:24 15:54 16:15 RBC (4.30-5.90) m/uL Hgb (13.0-17.5) gm/dL MCHC (31.0-37.0) g/dL Lymphocytes # (1.0-4.8) k/uL ABG pH 7.31 L (7.35-7.45) ABG pCO2 63 H (35-45) mmHg ABG pO2 332 H (83-108) mmHg ABG HCO3 31 H (21-25) mmol/L ABG Total CO2 33 H (19-24) mmol/L ABG O2 Saturation >100.0 H (94-97) % Hemoglobin 12.6 L (13.0-17.5) gm/dL Potassium 5.7 H (3.5-5.1) mmol/L Creatinine (0.66-1.25) mg/dL Glucose (74-99) mg/dL POC Glucose (mg/dL) (70-110) mg/dL Urine Protein Trace H (Negative) Urine Glucose (UA) 1+ H (Negative) Urine Ketones 1+ H (Negative) 01/24/24 01/25/24 01/25/24 Range/Units 18:54 05:25 05:26 RBC 4.10 L (4.30-5.90) m/uL Hgb 12.1 L (13.0-17.5) gm/dL MCHC 30.9 L (31.0-37.0) g/dL Lymphocytes # 0.9 L (1.0-4.8) k/uL ABG pH (7.35-7.45) ABG pCO2 47 H (35-45) mmHg ABG pO2 113 H (83-108) mmHg ABG HCO3 31 H (21-25) mmol/L ABG Total CO2 33 H (19-24) mmol/L ABG O2 Saturation 98.9 H (94-97) % Hemoglobin 12.4 L (13.0-17.5) gm/dL Potassium (3.5-5.1) mmol/L Creatinine (0.66-1.25) mg/dL Glucose (74-99) mg/dL POC Glucose (mg/dL) 169 H (70-110) mg/dL Urine Protein (Negative) Urine Glucose (UA) (Negative) Urine Ketones (Negative) 01/25/24 Range/Units 05:26 RBC (4.30-5.90) m/uL Hgb (13.0-17.5) gm/dL MCHC (31.0-37.0) g/dL Lymphocytes # (1.0-4.8) k/uL ABG pH (7.35-7.45) ABG pCO2 (35-45) mmHg ABG pO2 (83-108) mmHg ABG HCO3 (21-25) mmol/L ABG Total CO2 (19-24) mmol/L ABG O2 Saturation (94-97) % Hemoglobin (13.0-17.5) gm/dL Potassium (3.5-5.1) mmol/L Creatinine 0.62 L (0.66-1.25) mg/dL Glucose 172 H (74-99) mg/dL POC Glucose (mg/dL) (70-110) mg/dL Urine Protein (Negative) Urine Glucose (UA) (Negative) Urine Ketones (Negative) Microbiology - Last 24 Hours (Table) 01/24/24 14:20 Gram Stain - Preliminary Bronchoalviolar Lavage - Right Assessment and Plan Plan: Right upper lobe mass measuring 9.9 x 4.8 cm in size extending to the right suprahilar area and causing mass effect on the distal trachea with abrupt cut ultrasound of the right mainstem bronchus/bronchus intermedius and right upper lobe bronchus. The patient also has mediastinal lymphadenopathy and atelectatic changes involving the right lung and mild to moderate-sized right-sided pleural effusion and volume loss involving the right hemithorax. Findings are highly suspicious for central malignancy/primary bronchogenic cancer. Rule out underlying small cell lung cancer. The chest x-ray from 01/24/2024 showed complete opacification of the right lung. Bronchoscopy was done and the patient was found to have severe anatomic distortion of the distal trachea and main beverly, there was endobronchial tumor growing circumferentially around the orifice of the right mainstem bronchus and there was considerable narrowing in the right mainstem bronchus and the right upper lobe bronchus was completely occupied by tumor and was occluded and there was also endobronchial tumor obstructing the distal bronchus intermedius and right lower lobe bronchus. Right middle lobe bronchus was not identified. There was also significant anatomic narrowing of the left mainstem bronchus due to endobronchial tumor involving the main beverly with narrowing of the orifice by around 50%. Endobronchial biopsies were performed. Post bronchoscopy, the patient was unable to extubate and the patient as such was kept intubated on the mechanical ventilator. Acute hypoxic/hypercapnic respiratory failure secondary to above and the patient was kept intubated on mechanical ventilator post bronchoscopy Acute stridor, inspiratory and expiratory related to tumor causing significant airway compromise of the left mainstem bronchus and the distal trachea and main beverly. Impending SVC syndrome with positive JVDs without facial or upper extremity swelling Acute on chronic shortness of breath secondary to above Hemoptysis, likely secondary to the right upper lobe mass extending into the right mainstem bronchus/tracheal wall Paroxysmal A-fib, currently back in normal sinus rhythm Troponin leak COPD Chronic smoking Hyperkalemia Plan Will wean off the propofol and assess patient's mental status Will check weaning parameters and consider extubating the patient today with the understanding that the patient's airways are significantly compromised and he may not successfully extubate. Bronchoscopy was completed on 01/25/2024 and biopsies were taken The airway inspection showed significant airway compromise of the distal trachea, main beverly, and right mainstem bronchus with complete obstruction of the distal bronchus intermedius and the right upper lobe and there was considerable narrowing of the left mainstem bronchus orifice Continue steroids and the patient remains on Decadron Continue bronchodilators Will discuss the finding with the family and with medical oncology and radiation oncology, awaiting final pathology Overall prognosis is poor. Further prognostication will follow once tissue diagnosis established a Critical care evaluation that was done in more than 30 minutes. The plan for now is to consider extubating this patient despite the known limitations as discussed above. Time with Patient: Greater than 30
[2024-01-25 17:00] LABS: Glucose,Whole Blood 154 mg/dL (70-110)
--- NOTE | 2024-01-25 17:03 | P.PN ---
Subjective Progress Note Date: 01/25/24 Patient is a 73-year-old male with no known past medical history presented to the emergency department by EMS after falling after walking about 40 feet this morning. He states that he "just ran out of energy." He denies tripping or syncope, no loss of consciousness. He endorses associated lightheadedness, dizziness, and dyspnea at the time. He endorses losing about 45 pounds in the last 2 months. He endorses hemoptysis for the last 3 months. He states that he has not mentioned the hemoptysis to his primary care provider. Initial EKG independently interpreted as A-fib with rapid ventricular rate, poor R-wave progression. IV Cardizem was given. Initial chest x-ray: Large right pleural effusion with associated atelectasis. Initial chest CTA: No evidence of pulmonary embolism; large right perihilar mass with superior hilar extension and invasion into the mediastinum and adjacent confluent adenopathyfinding highly concerning for primary lung cancer until proven otherwisethis caused abrupt cut off of the right mainstem bronchus with narrowing of the right pulmonary artery; small to moderate size right pleural effusion with atelectatic change of the right lungpatchy consolidative o pacities within the right lower lobe which may represent an infectious process versus related to other finding; diminutive appearance of the spleen with few scattered regions of nodularity in the upper abdomen, may represent splenosis versus other etiologies such as metastasis; 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 Initial labs: WBC 8.9, hemoglobin 14.1, hematocrit 46.7, platelets 225, PT 11.1, INR 1, APTT 19.4, D-dimer 2.48, sodium 144, potassium 5.3, chloride 104, CO2 31, BUN 26, creatinine 0.85, glucose 255, lactic acid 2.3, troponin X3 0.073, 0.097, 0.092. Initial vitals: T 97.8 F, PA 125 bpm, RR 24, BP 113/68, O2 sat 99% on 6 L nasal cannula. 01/24. Patient underwent bronchoscopy with biopsy yesterday, unable to be extubated post bronchoscopy was returned to the ICU intubated, sedated, mechanically ventilated. Plan to extubate today. Labs today: WBC 8.5, RBC 4.1, hemoglobin 12.1, platelets 209, sodium 137, potassium 4.5, chloride 107, CO2 28, BUN 18, creatinine 0.62, glucose 172. Pending bronchial specimen results. CXR independently interpreted today: Near complete opacification of the right lung Pertinent positives and negatives discussed above, a complete review of systems was performed and all the other systems were negative. Physical examination: Vital signs reviewed General: Intubated and sedated Derm: Warm, dry, intact Head: Atraumatic, normocephalic, symmetric Eyes: EOMI, anicteric sclera Mouth: No lip lesion, mucus membranes moist Cardiovascular: S1-S2 regular, no murmur Lungs: Mechanical breath sounds, diminished breath sounds on the right side, no rhonchi, no rales, no accessory muscle use Abdominal: Soft, non-tender to palpation Extremities: No cyanosis, clubbing, or pedal edema Neuro: Intubated and sedated Psych: Appropriate affect and mood Assessment and Plan: Patient is a 73-year-old male with no known past medical history admitted for acute hypoxic respiratory failure. He was subsequently found to have a lung mass and is undergoing further workup. Active #. Acute hypoxic respiratory failure, likely secondary to lung mass #. Right lung atelectasis secondary to lung mass Pending bronchoscopy specimen results Continue IV Decadron 6 mg every 6 hours Attempt to wean off ventilator #. NSTEMI, type II Elevated troponins Echo pending Cardiology consulted #. Diabetes, diagnosed on admission A1c 7.2 Insulin sliding scale Accu-Cheks every 6 hours Hypoglycemic precautions #. Euthyroid sick syndrome Low TSH, normal T4 Repeat in 4 to 6 weeks #. Atrial fibrillation versus multifocal atrial tachycardia Echo pending Cardiology consulted Started on Cardizem IV Resolved #. Metabolic alkalosis F: None E: Replete if required N: NPO A: Fall precautions DVT prophylaxis: Subcutaneous Lovenox 40 mg daily Code status: Full code, but would not want long-term life-sustaining treatment Anticipated discharge place: Pending clinical course I have seen and evaluated the patient today. Discussed with the resident and agree with the residents finding and plan as documented in the resident's note. Changes highlighted in blue font. Objective - Vital Signs Vital signs: Vital Signs Temp 98.0 F 01/25/24 04:00 Pulse 64 01/25/24 06:00 Resp 20 01/25/24 06:00 BP 127/70 01/25/24 06:00 Pulse Ox 100 01/25/24 06:00 FiO2 50 01/25/24 04:00 Intake & Output 01/24/24 01/24/24 01/25/24 06:59 18:59 06:59 Intake Total 1125 0426.611 1983.458 Output Total 900 1025 570 Balance 225 825.000 682.458 Weight 102.5 kg 102.5 kg 106.8 kg Intake: IV 1750 900 Sodium Chloride 0.9% 1, 750 900 000 ml @ 75 mls/hr IV . [id number] [facility] Rx#:[id number] Intake, IV Titration 1125 100.000 352.458 Amount Azithromycin 500 mg In 250 Sodium Chloride 0.9% 250 ml @ 250 mls/hr IVPB DAILY@2000 [facility] Rx#: [id number] Sodium Chloride 0.9% 1, 825 000 ml @ 75 mls/hr IV . [id number] [facility] Rx#:[id number] cefTRIAXone 2 gm In 50 Sodium Chloride 0.9% 50 ml @ 100 mls/hr IVPB Q24H [facility] Rx#:[id number] propofoL 1,000 mg In 100.000 352.458 Empty Bag 1 bag @ 15 MCG/ KG/MIN 9.225 mls/hr IV . [id number] [facility] Rx#:[id number] Output: Gastric Drainage 100 Urine 900 925 570 Other: Voiding Method Urinal Indwelling Catheter Indwelling Catheter - Labs CBC & Chem 7: 01/25/24 05:26 01/25/24 05:26 Labs: Abnormal Lab Results - Last 24 Hours (Table) 01/24/24 01/24/24 01/24/24 Range/Units 05:38 05:38 05:38 RBC (4.30-5.90) m/uL Hgb (13.0-17.5) gm/dL MCHC 30.0 L (31.0-37.0) g/dL Lymphocytes # 0.2 L (1.0-4.8) k/uL ABG pH (7.35-7.45) ABG pCO2 (35-45) mmHg ABG pO2 (83-108) mmHg ABG HCO3 (21-25) mmol/L ABG Total CO2 (19-24) mmol/L ABG O2 Saturation (94-97) % Hemoglobin (13.0-17.5) gm/dL Potassium 5.7 H (3.5-5.1) mmol/L Carbon Dioxide 37 H (22-30) mmol/L Creatinine (0.66-1.25) mg/dL Glucose 154 H (74-99) mg/dL POC Glucose (mg/dL) (70-110) mg/dL Hemoglobin A1c 7.2 H (<=6.0) % TSH 0.219 L (0.465-4.680) mIU/L Urine Protein (Negative) Urine Glucose (UA) (Negative) Urine Ketones (Negative) 01/24/24 01/24/24 01/24/24 Range/Units 11:24 15:54 16:15 RBC (4.30-5.90) m/uL Hgb (13.0-17.5) gm/dL MCHC (31.0-37.0) g/dL Lymphocytes # (1.0-4.8) k/uL ABG pH 7.31 L (7.35-7.45) ABG pCO2 63 H (35-45) mmHg ABG pO2 332 H (83-108) mmHg ABG HCO3 31 H (21-25) mmol/L ABG Total CO2 33 H (19-24) mmol/L ABG O2 Saturation >100.0 H (94-97) % Hemoglobin 12.6 L (13.0-17.5) gm/dL Potassium 5.7 H (3.5-5.1) mmol/L Carbon Dioxide (22-30) mmol/L Creatinine (0.66-1.25) mg/dL Glucose (74-99) mg/dL POC Glucose (mg/dL) (70-110) mg/dL Hemoglobin A1c (<=6.0) % TSH (0.465-4.680) mIU/L Urine Protein Trace H (Negative) Urine Glucose (UA) 1+ H (Negative) Urine Ketones 1+ H (Negative) 01/24/24 01/25/24 01/25/24 Range/Units 18:54 05:26 05:26 RBC 4.10 L (4.30-5.90) m/uL Hgb 12.1 L (13.0-17.5) gm/dL MCHC 30.9 L (31.0-37.0) g/dL Lymphocytes # 0.9 L (1.0-4.8) k/uL ABG pH (7.35-7.45) ABG pCO2 (35-45) mmHg ABG pO2 (83-108) mmHg ABG HCO3 (21-25) mmol/L ABG Total CO2 (19-24) mmol/L ABG O2 Saturation (94-97) % Hemoglobin (13.0-17.5) gm/dL Potassium (3.5-5.1) mmol/L Carbon Dioxide (22-30) mmol/L Creatinine 0.62 L (0.66-1.25) mg/dL Glucose 172 H (74-99) mg/dL POC Glucose (mg/dL) 169 H (70-110) mg/dL Hemoglobin A1c (<=6.0) % TSH (0.465-4.680) mIU/L Urine Protein (Negative) Urine Glucose (UA) (Negative) Urine Ketones (Negative) Microbiology - Last 24 Hours (Table) 01/24/24 14:20 Gram Stain - Preliminary Bronchoalviolar Lavage - Right
--- NOTE | 2024-01-25 17:20 | CA ---
Transthoracic Echo Report Name: Nathaniel Kumari Age: 73 Gender: M : 1950 Exam Date: 01/25/2024 13:25 Exam Location: [facility] Ht (in): 74 Wt (lb): 235 Ordering Physician: Kat Loera MD Attending/Referring Phys: Signal Repairer Beatriz Flores RDCS Procedure CPT: Indications: suspected MAT Cardiac Hx: Cardiac arrhythmia Technical Quality: Fair Contrast 1: Total Dose (mL): Contrast 2: Total Dose (mL): MEASUREMENTS (Male / Female) Normal Values 2D ECHO LV Diastolic Diameter PLAX 5.5 cm 4.2 - 5.9 / 3.9 - 5.3 cm LV Systolic Diameter PLAX 4.4 cm IVS Diastolic Thickness 1.0 cm 0.6 - 1.0 / 0.6 - 0.9 cm LVPW Diastolic Thickness 0.9 cm 0.6 - 1.0 / 0.6 - 0.9 cm LV Relative Wall Thickness 0.4 RV Internal Dim ED PLAX 1.9 cm LA Systolic Diameter LX 4.2 cm 3.0 - 4.0 / 2.7 - 3.8 cm LV Diastolic Volume MOD BP 106.3 cm??? 67 - 155 / 56 - 104 cm??? LV Systolic Volume MOD BP 42.4 cm??? 22 - 58 / 19 - 49 cm??? LV Ejection Fraction MOD BP 60.1 % >= 55 % LV Cardiac Index MOD BP 2147.4 cm???/min???m??? LV Diastolic Volume MOD 4C 130.7 cm??? LV Systolic Volume MOD 4C 47.0 cm??? LV Ejection Fraction MOD 4C 64.0 % LV Cardiac Index MOD 4C 2811.3 cm???/min???m??? LV Diastolic Length 4C 8.6 cm LV Systolic Length 4C 7.7 cm LV Diastolic Volume MOD 2C 83.0 cm??? LV Systolic Volume MOD 2C 38.0 cm??? LV Ejection Fraction MOD 2C 54.3 % LV Cardiac Index MOD 2C 1512.8 cm???/min???m??? LV Diastolic Length 2C 8.2 cm LV Systolic Length 2C 7.1 cm LA Volume 66.6 cm??? 18 - 58 / 22 - 52 cm??? LA Volume Index 27.9 cm???/m??? 16 - 28 cm???/m??? M-MODE Aortic Root Diameter MM 3.5 cm LA Systolic Diameter MM 3.6 cm LA Ao Ratio MM 1.0 AV Cusp Separation MM 2.2 cm DOPPLER MV Area PHT 2.5 cm??? Mitral E Point Velocity 101.8 cm/s Mitral A Point Velocity 113.0 cm/s Mitral E to A Ratio 0.9 MV Deceleration Time 306.5 ms FINDINGS Left Ventricle Left ventricular ejection fraction is estimated at 50-55 %. Left ventricular cavity size normal. Left ventricular wall thickness normal. No obvious regional wall motion abnormalities. Reduced global left ventricular systolic function. Right Ventricle Mild right ventricular dilatation. Unable to estimate the right ventricular systolic pressure. Right Atrium Normal right atrial size. Left Atrium Mildly increased left atrial diameter. Mildly increased left atrial volume. Mitral Valve Structurally normal mitral valve. Trace mitral regurgitation. No mitral stenosis. Aortic Valve Trileaflet aortic valve. No aortic valve stenosis or regurgitation. Tricuspid Valve Structurally normal tricuspid valve. Trace tricuspid regurgitation. No tricuspid stenosis. Pulmonic Valve Structurally normal pulmonic valve. Trace pulmonic regurgitation. No pulmonic stenosis. Pericardium No pericardial or pleural effusion. Aorta Normal size aortic root and proximal ascending aorta. CONCLUSIONS Normal LV systolic function Mild right ventricular dilatation Previewed by: Dr. Nikhil Bermudez MD (Electronically Signed) Final Date: 25 January 2024 17:19
[2024-01-25] MEDS ORDERED: ENOXAPARIN 40 MG/0.4 ML SYRINGE SQ SCH (18:00)
[2024-01-25 20:02] LABS: Glucose,Whole Blood 163 mg/dL (70-110)
[2024-01-26 06:23] LABS: Glucose,Whole Blood 150 mg/dL (70-110)
[2024-01-26 07:12] LABS: Basophils % (A) 0 %; Eosinophils % (A) 0 %; HCT 44.4 % (39.0-53.0); HGB 13.4 gm/dL (13.0-17.5); Hypochromasia Marked; Lymphocytes # (A) 0.8 k/uL (1.0-4.8); Lymphocytes % (A) 6 %; MCH 29.5 pg (25.0-35.0); MCHC 30.1 g/dL (31.0-37.0); Mean Platelet Volume 12.9; Monocytes # (A) 0.6 k/uL (0-1.0); Monocytes % (A) 5 %; Neutrophils # (A) 10.8 k/uL (1.3-7.7); Neutrophils % (A) 88 %; Platelet Count 168 k/uL (150-450); RBC 4.53 m/uL (4.30-5.90); RDW 13.8 % (11.5-15.5); WBC 12.3 k/uL (3.8-10.6)
[2024-01-26 08:05] LABS: African American GFR (CKD) >90 (>60 ml/min/1.73 sqM); Anion Gap 4 mmol/L; Blood Urea Nitrogen 21 mg/dL (9-20); Calcium 9.5 mg/dL (8.4-10.2); Carbon Dioxide 32 mmol/L (22-30); Chloride 103 mmol/L (98-107); Glucose 153 mg/dL (74-99); Non-African American GFR(CKD) >90 (>60 ml/min/1.73 sqM); Potassium 4.5 mmol/L (3.5-5.1); Sodium 139 mmol/L (137-145)
--- NOTE | 2024-01-26 08:08 | P.PN ---
Subjective Progress Note Date: 01/26/24 The patient is a 73-year-old gentleman who was admitted to the hospital with progressive exertional dyspnea and he underwent workup which revealed right upper lobe mass. The patient was admitted to the intensive care unit. He underwent a workup for the mass including bronchoscopy and biopsy. No past me dical history of CAD or hypertension or dyslipidemia or diabetes. We consulted to see the patient because of paroxysmal atrial fibrillation. The patient has been maintaining normal sinus mechanism throughout his hospital stay till earlier today when he went into an A-fib with RVR and continues to be in A-fib with RVR. Hemodynamically he is stable with his resting heart rate around 140 bpm but the pressure has been stable. He is not on any vasopressors. He is experiencing shortness of breath with exertion but no symptoms of any dizziness or lightheadedness or heart racing or fluttering or presyncope or syncope and no symptoms of any chest pain or chest discomfort. The EKG initially showed sinus mechanism but the bedside EKG in the intensive care and it showed A-fib with RVR. After discussing the case with the critical care team we decided not to pursue with anticoagulation given the high risk of bleeding. Meanwhile I am going to start the patient on Cardizem IV at 5 mg/h titrated for the heart rate if the pressure permits. Beside that we are going to obtain an echocardiogram with Doppler. No prior history of atrial fibrillation according to the patient as well as according to the chart. The physical examination is remarkable for irregular rhythm with distant heart sounds and bilateral expiratory wheezing and no edema was noted in the lower extremities January 26, 2024 The patient was seen and evaluated this morning with he is converted to normal sinus mechanism. Currently he is not on any AV lay gali agents. I am going to start the patient on Cardizem 30 mg p.o. 3 times daily to keep him in normal sinus mechanism his pressure has been stable and he is not on any vasopressors. No need for anticoagulation after we check yesterday with the critical care team for high risk of bleeding. Anyway the episode of atrial fibrillation has lasted less than 24 hours. Otherwise he remains stable from the cardiovascular standpoint of view with the echo showed normal LV systolic function with no significant valvular abnormalities. 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 Hypoxic respiratory failure Impending SVC syndrome Hemoptysis A-fib with RVR currently the patient is in normal sinus mechanism Multiple comorbid conditions Smoking Plan Start the patient on oral AV lay gali agents using Cardizem Objective - Vital Signs Vital signs: Vital Signs Temp 97.4 F L 01/26/24 04:00 Pulse 70 01/26/24 07:42 Resp 13 01/26/24 07:00 BP 118/68 01/26/24 07:00 Pulse Ox 99 01/26/24 07:00 FiO2 60 01/25/24 15:00 Intake & Output 01/25/24 01/26/24 01/26/24 18:59 06:59 18:59 Intake Total 8041.069 0736 75 Output Total 1160 895 75 Balance -83.238 405 0 Weight 106.6 kg Intake: IV 1025 900 75 Magnesium Sulfate-D5w Pmx 200 1 gm In Dextrose/Water 1 100ml.bag @ 100 mls/hr IVPB ONCE ONE Rx#: [id number] Sodium Chloride 0.9% 1, 825 900 75 000 ml @ 75 mls/hr IV . [id number] [facility] Rx#:[id number] Intake, IV Titration 51.762 Amount propofoL 1,000 mg In 51.762 Empty Bag 1 bag @ 15 MCG/ KG/MIN 9.225 mls/hr IV . [id number] [facility] Rx#:[id number] Oral 400 Output: Urine 1160 895 75 Other: Voiding Method Indwelling Catheter Indwelling Catheter - Labs CBC & Chem 7: 01/26/24 05:54 01/25/24 05:26 Labs: Abnormal Lab Results - Last 24 Hours (Table) 01/25/24 01/25/24 01/25/24 Range/Units 13:09 16:58 20:00 WBC (3.8-10.6) k/uL MCHC (31.0-37.0) g/dL Neutrophils # (1.3-7.7) k/uL Lymphocytes # (1.0-4.8) k/uL POC Glucose (mg/dL) 140 H 154 H 163 H (70-110) mg/dL 01/26/24 01/26/24 Range/Units 05:54 06:21 WBC 12.3 H (3.8-10.6) k/uL MCHC 30.1 L (31.0-37.0) g/dL Neutrophils # 10.8 H (1.3-7.7) k/uL Lymphocytes # 0.8 L (1.0-4.8) k/uL POC Glucose (mg/dL) 150 H (70-110) mg/dL Microbiology - Last 24 Hours (Table) 01/24/24 14:20 Gram Stain - Preliminary Bronchoalviolar Lavage - Right
--- NOTE | 2024-01-26 08:16 | XR ---
EXAMINATION TYPE: XR chest 1V portable DATE OF EXAM: 01/26/2024 6:36 AM COMPARISON: Chest radiograph from one day prior. CLINICAL INDICATION: Male, 73 years old with history of Tube placement; [facility] TECHNIQUE: XR chest 1V portable Frontal view of the chest. FINDINGS: FINDINGS: Lungs/Pleura: complete opacification of the right lung similar prior There is no evidence of left ple ural effusion, focal consolidation, or pneumothorax. Pulmonary vascularity: Unremarkable. Heart/mediastinum: Cardiomediastinal silhouette is unremarkable. Musculoskeletal: No acute osseous pathology. Other findings: None Lines/Tubes: Interval removal of the endotracheal tube. Interval removal of the enteric tube, IMPRESSION: complete opacification of the right lung. [facility], , 01/26/2024 8:14 AM
[2024-01-26] MEDS: DILTIAZEM ORAL 30 MG TAB PO SCH (09:00)
[2024-01-26] MEDS: DILTIAZEM 125 MG in SODIUM CHLORIDE 0.9% 100 ML IV SCH (09:20)
[2024-01-26 11:13] LABS: Glucose,Whole Blood 153 mg/dL (70-110)
[2024-01-26 13:11] VITALS: BMI 30.2
--- NOTE | 2024-01-26 13:11 | P.PN ---
Subjective Progress Note Date: 01/26/24 Patient is a 73-year-old male with no known past medical history presented to the emergency department by EMS after falling after walking about 40 feet this morning. He states that he "just ran out of energy." He denies tripping or syncope, no loss of consciousness. He endorses associated lightheadedness, dizziness, and dyspnea at the time. He endorses losing about 45 pounds in the last 2 months. He endorses hemoptysis for the last 3 months. He states that he has not mentioned the hemoptysis to his primary care provider. Initial EKG independently interpreted as A-fib with rapid ventricular rate, poor R-wave progression. IV Cardizem was given. Initial chest x-ray: Large right pleural effusion with associated atelectasis. Initial chest CTA: No evidence of pulmonary embolism; large right perihilar mass with superior hilar extension and invasion into the mediastinum and adjacent confluent adenopathyfinding highly concerning for primary lung cancer until proven otherwisethis caused abrupt cut off of the right mainstem bronchus with narrowing of the right pulmonary artery; small to moderate size right pleural effusion with atelectatic change of the right lungpatchy consolidative o pacities within the right lower lobe which may represent an infectious process versus related to other finding; diminutive appearance of the spleen with few scattered regions of nodularity in the upper abdomen, may represent splenosis versus other etiologies such as metastasis; 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 Initial labs: WBC 8.9, hemoglobin 14.1, hematocrit 46.7, platelets 225, PT 11.1, INR 1, APTT 19.4, D-dimer 2.48, sodium 144, potassium 5.3, chloride 104, CO2 31, BUN 26, creatinine 0.85, glucose 255, lactic acid 2.3, troponin X3 0.073, 0.097, 0.092. Initial vitals: T 97.8 F, ND 125 bpm, RR 24, BP 113/68, O2 sat 99% on 6 L nasal cannula. 01/24. Patient underwent bronchoscopy with biopsy yesterday, unable to be extubated post bronchoscopy was returned to the ICU intubated, sedated, mechanically ventilated. Plan to extubate today. Labs today: WBC 8.5, RBC 4.1, hemoglobin 12.1, platelets 209, sodium 137, potassium 4.5, chloride 107, CO2 28, BUN 18, creatinine 0.62, glucose 172. Pending bronchial specimen results. CXR today: Near complete opacification of the right lung. 01/25. Patient seen and examined at bedside. Patient was successfully extubated yesterday and is currently on 5 L high flow cannula. Chest x-ray today independently interpreted shows complete opacification of the right lung. Echo showed: Normal LV systolic function, mild right ventricular dilatation. He denies chest pain and abdominal pain. Labs today: WBC 12.3, hemoglobin 13.4, platelets 168, sodium 139, potassium 4.9, chloride 103, CO2 32, BUN 21, creatinine 0.59, glucose 153. Pertinent positives and negatives discussed above, a complete review of systems was performed and all the other systems were negative. Physical examination: Vital signs reviewed. Afebrile, tachypneic, normotensive, saturating 05109% on 5 L high flow. General: Intubated and sedated Derm: Warm, dry, intact Head: Atraumatic, normocephalic, symmetric Eyes: EOMI, anicteric sclera Mouth: No lip lesion, mucus membranes moist Cardiovascular: S1-S2 regular, no murmur Lungs: Diminished breath sounds on the right side, no rhonchi, no rales, no accessory muscle use Abdominal: Soft, non-tender to palpation Extremities: No cyanosis, clubbing, or pedal edema Neuro: Alert and oriented x 3 Psych: Appropriate affect and mood Assessment and Plan: Patient is a 73-year-old male with no known past medical history admitted for acute hypoxic respiratory failure. He was subsequently found to have a lung mass and is undergoing further workup. Active #. Acute hypoxic respiratory failure, likely secondary to lung mass #. Right lung atelectasis secondary to lung mass #Hemoptysis Pending bronchoscopy specimen results Continue IV Decadron 6 mg every 6 hours Continue oxygen supplementation as needed to keep oxygen saturation >94% Pulmonology following #. NSTEMI, type II Elevated troponinsresolved Echo: Normal LV function Cardiology following #. Atrial fibrillation new onset Currently in sinus rhythm Echo: Normal LV function Cardizem 30 mg PO 3 times daily Cardiology consulted #. Diabetes, diagnosed on admission A1c 7.2 Insulin sliding scale Accu-Cheks ACHS Hypoglycemic precautions #. Euthyroid sick syndrome Low TSH, normal T4 Monitor clinical status Repeat in 4 to 6 weeks #. Leukocytosis, likely reactive Monitor CBC Monitor vitals Resolved #. Metabolic alkalosis F: None E: Replete if required N: Regular diet, soft foods for nowadvance as tolerated A: Fall precautions DVT prophylaxis: Currently on hold due to high risk of bleeding Code status: Full code, but would not want long-term life-sustaining treatment Anticipated discharge place: Pending clinical course I have seen and evaluated the patient today. Discussed with the resident and agree with the residents finding and plan as documented in the resident's note. Changes highlighted in blue font. Objective - Vital Signs Vital signs: Vital Signs Temp 97.4 F L 01/26/24 04:00 Pulse 68 01/26/24 06:00 Resp 30 H 01/26/24 06:00 BP 132/74 01/26/24 06:00 Pulse Ox 99 01/26/24 06:00 FiO2 60 01/25/24 15:00 Intake & Output 01/25/24 01/25/24 01/26/24 06:59 18:59 06:59 Intake Total 2257.576 2049.762 1300 Output Total 610 1160 895 Balance 717.458 -83.238 405 Weight 106.8 kg 106.6 kg Intake: IV 975 1025 900 Magnesium Sulfate-D5w Pmx 200 1 gm In Dextrose/Water 1 100ml.bag @ 100 mls/hr IVPB ONCE ONE Rx#: [id number] Sodium Chloride 0.9% 1, 975 825 900 000 ml @ 75 mls/hr IV . [id number] [facility] Rx#:[id number] Intake, IV Titration 352.458 51.762 Amount propofoL 1,000 mg In 352.458 51.762 Empty Bag 1 bag @ 15 MCG/ KG/MIN 9.225 mls/hr IV . [id number] [facility] Rx#:[id number] Oral 400 Output: Urine 610 1160 895 Other: Voiding Method Indwelling Catheter Indwelling Catheter Indwelling Catheter - Labs CBC & Chem 7: 01/26/24 05:54 01/26/24 05:54 Labs: Abnormal Lab Results - Last 24 Hours (Table) 01/25/24 01/25/24 01/25/24 Range/Units 05:25 13:09 16:58 ABG pCO2 47 H (35-45) mmHg ABG pO2 113 H (83-108) mmHg ABG HCO3 31 H (21-25) mmol/L ABG Total CO2 33 H (19-24) mmol/L ABG O2 Saturation 98.9 H (94-97) % Hemoglobin 12.4 L (13.0-17.5) gm/dL POC Glucose (mg/dL) 140 H 154 H (70-110) mg/dL 01/25/24 01/26/24 Range/Units 20:00 06:21 ABG pCO2 (35-45) mmHg ABG pO2 (83-108) mmHg ABG HCO3 (21-25) mmol/L ABG Total CO2 (19-24) mmol/L ABG O2 Saturation (94-97) % Hemoglobin (13.0-17.5) gm/dL POC Glucose (mg/dL) 163 H 150 H (70-110) mg/dL Microbiology - Last 24 Hours (Table) 01/24/24 14:20 Gram Stain - Preliminary Bronchoalviolar Lavage - Right
[2024-01-26] MEDS: IOPAMIDOL CONTRAST (ORAL USE) VIAL PO PRN (14:28)
[2024-01-26 16:42] LABS: Glucose,Whole Blood 164 mg/dL (70-110)
--- NOTE | 2024-01-26 16:52 | P.PN ---
Subjective Progress Note Date: 01/26/24 A 73-year-old male patient, chronic smoker presented to the emergency department with progressive worsening shortness of breath over the past 2 to 3 months. The patient at the time of arrival was quite short of breath and he has inspiratory stridor. CT of the chest was done and the patient was found to have a right hilar mass measuring 9.9 x 4.8 cm in size and the mass extended into the right suprahilar area causing mass effect on the trachea with significant narrowing of the distal trachea and there is also an abrupt cut off of the right mainstem bronchus due to mass. There is also atelectatic changes involving the right lung and a small to moderate-sized right-sided pleural effusion and volume loss involving the right hemithorax with elevation of the right hemidiaphragm. There was also evidence of mediastinal lymphadenopathy. The tumor is extending into the trachea and there is obvious endobronchial component. The patient has been having episodes of hemoptysis in addition. In the emergency, the patient briefly went into atrial fibrillation with rapid medical response. Even before Cardizem drip was started, the patient went into normal sinus rhythm. Currently he is sitting up in a chair and is on oxygen 1 L with a pulse ox of 93%. He has a hoarse voice. No altered mentation. No headaches. No chest pain. Initial lactic acid level was at 2.3 dropped down to 1.3. Troponins are 0.07 and 0.09 respectively and a proBNP level is 1000. The white cell count is at 8.9 with a hemoglobin 14.1. He has been encountering weight loss. On 01/24/2024, the patient is being seen in follow-up in the intensive care unit. The patient seems to be slightly more comfortable compared to yesterday. Nevertheless, he continues to have respiratory stridor and there is also a component of expiratory stridor appreciated on today's examination. He is afebrile. He is hemodynamically stable. Not having any active hemoptysis. Blood work from today shows a sodium of 141, potassium level is at 5.7, BUN is 19 with a creatinine of 0.7. LFTs are normal. TSH is 0.21 and the free T4 is at 1.1. UA showing +1 ketones and +1 glucose. The WBC count is at 7.5 with a hip of 13.3 and platelet count of 231. A follow-up chest x-ray done today shows worsening opacification of the right lung with complete atelectasis and presence of right-sided pleural effusion. I had a nice discussion with the patient. I also contacted his sister, Abby, who is currently in [place] and I discussed the situation with her. The patient will need tissue diagnosis and as such the patient will need a bronchoscopy for airway inspection and biopsies. The patient and the sister was made aware that he is at very high risk of remaining on the mechanical ventilator post bronchoscopy because of his extremely compromised respiratory status. The patient opted to proceed with the procedure as the patient was very much interested in establishing a tissue diagnosis and interested in subsequent treatment. Based on that, the patient underwent a bronchoscopy in the endoscopy suite. The patient was intubated by [employer] MACHINE. Airway inspection showed severe anatomic distortion in the distal trachea, complete effacement of the beverly, significant narrowing of the right mainstem bronchus with endobronchial tumor going circumferentially around the right mainstem bronchus at its origin and invading the tracheal wall causing mass effect on the right lateral wall of the trachea. Right upper lobe was completely plugged with endobronchial tumor. Bronchus intermedius was narrowed. Right lower bronchus was extremely narrowed and was plugged with endobronchial tumor. Middle lobe was not identified. The left mainstem bronchus orifice was also significant narrowed probably down to its 50% of his normal caliber. Endobronchial biopsies from the trachea and right mainstem bronchus was done. Brushings and lavage was also done. Bronchoscope was removed. The patient was unable to extubate and the patient was accordingly Intubated on the mechanical ventilator and he was moved to the intensive care unit. Currently is on propofol. He is on the mechanical ventilator on assist-control mode rate of 20, tidal volume of 450, FiO2 of 100% with a PEEP of 8. Awaiting follow-up chest x-ray and blood gas. Hemodynamically stable. On 01/25/2024, the patient remains on the mechanical ventilator. He is on assist-control mode with rate of 20, tidal volume of 500, FiO2 of 50% with a PEEP of 8. Blood gas showed a pH of 7.43 with a pCO2 of 47 and pO2 of 115. The patient is on propofol running at 50 mcg/kg/min. Normal saline is a rate of 75 cc an hour. Noted the patient was unable to extubate post bronchoscopy due to significant airway compromise as discussed earlier. Biopsies were performed. Results are still pending for now. A follow-up chest x-ray was done today and the patient was found to have near complete opacification of the right lung. Left lung is essentially clear. The white cell count of 8.5, hemoglobin 12.1 and a platelet count of 209. The BUN is 18 with a creatinine of 0.6 and a sodium levels at 137. On 01/26/2024, the patient is being seen for a follow-up. Noted the patient was extubated yesterday and the patient is currently on 2 L of O2 nasal cannula. He is short of breath at rest and he continues to have inspiratory expiratory stridor. 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 The patient is being considered for systemic chemotherapy. Noted postextubation, the patient b riefly went into atrial fibrillation and subsequently went back into normal sinus rhythm. No anticoagulation was utilized and the patient is having episodes of hemoptysis. On and off, yesterday, he was also on a BiPAP pressure of 14/6 and the BiPAP was taken off and the patient is currently on 2 L of oxygen by nasal cannula. Chest x-ray from today showing complete opacification of the right lung, left lung is essentially clear. Remains on DuoNeb nebulized treatments [id number]. Remains on Decadron. Remains on oral Cardizem 30 mg p.o. 3 times daily and the patient is on normal saline at rate of 75 cc an hour. Oncology is on the case. White cell count of 12.3 with a hemoglobin 13.5 and a platelet count of 168. BUN is 21 with a creatinine of 0.5 and a sodium levels at 139. Objective - Vital Signs Vital signs: Vital Signs Temp 97.4 F L 01/26/24 04:00 Pulse 74 01/26/24 09:00 Resp 33 H 01/26/24 09:00 BP 99/49 01/26/24 09:00 Pulse Ox 97 01/26/24 09:00 FiO2 60 01/25/24 15:00 Intake & Output 01/25/24 01/26/24 01/26/24 18:59 06:59 18:59 Intake Total 4356.906 1219 225 Output Total 1160 895 200 Balance -83.238 405 25 Weight 106.6 kg Intake: IV 1025 900 225 Magnesium Sulfate-D5w Pmx 200 1 gm In Dextrose/Water 1 100ml.bag @ 100 mls/hr IVPB ONCE ONE Rx#: [id number] Sodium Chloride 0.9% 1, 825 900 225 000 ml @ 75 mls/hr IV . [id number] [facility] Rx#:[id number] Intake, IV Titration 51.762 Amount propofoL 1,000 mg In 51.762 Empty Bag 1 bag @ 15 MCG/ KG/MIN 9.225 mls/hr IV . [id number] [facility] Rx#:[id number] Oral 400 Output: Urine 1160 895 200 Other: Voiding Method Indwelling Catheter Indwelling Catheter Indwelling Catheter - Exam The patient is currently on 2 L of oxygen by nasal cannula. No significant res pite distress at rest. 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 Head exam is unremarkable. No scleral icterus or corneal arcus noted. Neck is without jugular venous distension, thyromegaly, or carotid bruits. Carotid upstrokes are brisk bilaterally. Lungs marked diminished breath sounds/absent on the right compared to left. Examination of the left side is within normal limits. Cardiac exam reveals the PMI to be normally sized and situated. Rhythm is regular. First and second heart sounds normal. No murmurs, rubs or gallops. Abdominal exam reveals normal bowel sounds, no masses, no organomegaly and no aortic enlargement. Extremities are nonedematous and both femoral and pedal pulses are normal. Examination of the skin revealed no evidence of significant rashes, suspicious appearing nevi or other concerning lesions. Neurologically, the patient is sedated - Labs CBC & Chem 7: 01/26/24 05:54 01/26/24 05:54 Labs: Abnormal Lab Results - Last 24 Hours (Table) 01/25/24 01/25/24 01/25/24 Range/Units 13:09 16:58 20:00 WBC (3.8-10.6) k/uL MCHC (31.0-37.0) g/dL Neutrophils # (1.3-7.7) k/uL Lymphocytes # (1.0-4.8) k/uL Carbon Dioxide (22-30) mmol/L BUN (9-20) mg/dL Creatinine (0.66-1.25) mg/dL Glucose (74-99) mg/dL POC Glucose (mg/dL) 140 H 154 H 163 H (70-110) mg/dL 01/26/24 01/26/24 01/26/24 Range/Units 05:54 05:54 06:21 WBC 12.3 H (3.8-10.6) k/uL MCHC 30.1 L (31.0-37.0) g/dL Neutrophils # 10.8 H (1.3-7.7) k/uL Lymphocytes # 0.8 L (1.0-4.8) k/uL Carbon Dioxide 32 H (22-30) mmol/L BUN 21 H (9-20) mg/dL Creatinine 0.59 L (0.66-1.25) mg/dL Glucose 153 H (74-99) mg/dL POC Glucose (mg/dL) 150 H (70-110) mg/dL Microbiology - Last 24 Hours (Table) 01/24/24 14:20 Gram Stain - Preliminary Bronchoalviolar Lavage - Right Assessment and Plan Plan: Right upper lobe mass measuring 9.9 x 4.8 cm in size extending to the right suprahilar area and causing mass effect on the distal trachea with abrupt cut ultrasound of the right mainstem bronchus/bronchus intermedius and right upper lobe bronchus. The patient also has mediastinal lymphadenopathy and atelectatic changes involving the right lung and mild to moderate-sized right-sided pleural effusion and volume loss involving the right hemithorax. Findings are highly suspicious for central malignancy/primary bronchogenic cancer. Rule out underlying small cell lung cancer. The chest x-ray from 01/24/2024 showed complete opacification of the right lung. Bronchoscopy was done and the patient was found to have severe anatomic distortion of the distal trachea and main beverly, there was endobronchial tumor growing circumferentially around the orifice of the right mainstem bronchus and there was considerable narrowing in the right mainstem bronchus and the right upper lobe bronchus was completely occupied by tumor and was occluded and there was also endobronchial tumor obstructing the distal bronchus intermedius and right lower lobe bronchus. Right middle lobe bronchus was not identified. There was also significant merari omic narrowing of the left mainstem bronchus due to endobronchial tumor involving the main beverly with narrowing of the orifice by around 50%. Endobronchial biopsies were performed. Post bronchoscopy, the patient was unable to extubate and the patient as such was kept intubated on the mechanical ventilator. Subsequently, the patient was extubated on 01/25/2024 and the patient is currently on 2 L of oxygen by nasal cannula. 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 Acute hypoxic/hypercapnic respiratory failure secondary to above and the patient was extubated on 01/25/2024 and currently on 2 L of oxygen by nasal cannula. Acute stridor, inspiratory and expiratory related to tumor causing significant airway compromise of the left mainstem bronchus and the distal trachea and main beverly. 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 Patient is being considered for systemic chemotherapyn The airway inspection showed significant airway compromise of the distal trachea, main beverly, and right mainstem bronchus with complete obstruction of the distal bronchus intermedius and the right upper lobe and there was considerable narrowing of the left mainstem bronchus orifice Continue steroids and the patient remains on Decadron Continue bronchodilators Continue oral Cardizem No anticoagulants based on his history of hemoptysis Will discuss the finding with the family and with medical oncology and radiation oncology, awaiting final pathology Overall prognosis is poor.
--- NOTE | 2024-01-26 17:09 | CT ---
EXAMINATION TYPE: CT abdomen pelvis w con DATE OF EXAM: 01/26/2024 4:33 PM COMPARISON: None. CLINICAL INDICATION: Male, 73 years old with history of Lung carcinoma staging, Lung carcinoma stagin g TECHNIQUE:CT scan of the abdomen and pelvis is performed with Oral Contrast and with IV Contrast, pat ient injected with 100ml mL of Isovue 300. CT DLP: 1584.4 mGycm, Automated exposure control for dose reduction was used. FINDINGS: LUNG BASES-: Partially imaged mass right hilum extending to the right lower lobe and mediastinum. The mass is estimated to measure 10 x 12 cm. There is also associated pleural effusion and volume loss. LIVER/GB: No calcified gallstones. No space occupying hepatic lesion. Biliary tree is of normal ca liber. PANCREAS: No inflammation. No distinct mass. SPLEEN: Diminutive spleen. ADRENALS: Nodular thickening right adrenal gland is nonspecific and could reflect hyperplasia or meta static disease is difficult to exclude. The left adrenal gland is unremarkable at this time. KIDNEYS/BLADDER: Parenchymal insult lower pole left kidney. Nonobstructing left-sided nephrolithiasi s. No hydronephrosis. No nephrolithiasis. No distinct renal mass. Comer catheter within a decompres sed urinary bladder. BOWEL: Normal appendix. Normal bowel caliber. No inflammation. GENITAL ORGANS: No gross abnormality. LYMPH NODES: No greater than 1cm abdominal or pelvic lymph nodes are appreciated. AORTA: No significant abnormality. OSSEOUS STRUCTURES: Degenerative changes throughout the lumbar spine. Probable hemangioma at T12. Sli ghtly mottled appearance of L3 could reflect additional hemangioma. Metastatic lesion not excluded. OTHER: Fat-containing left inguinal hernia. IMPRESSION: 1. Partially enlarged right hilar mass with mediastinal extension as well as extension into the right lower lobe with volume loss and moderate effusion. 2. Probable hemangiomas of the spine as discussed although a static lesion L3 is difficult to exclude . Correlate with bone scan 3. Nodular thickening right adrenal gland is nonspecific and could reflect hyperplasia or metastatic disease is difficult to exclude. [facility], , 01/26/2024 5:06 PM
--- NOTE | 2024-01-26 18:39 | P.PN ---
Subjective Progress Note Date: 01/26/24 The patient was able to be extubated, and was sitting up in the chair. He was able to verbalize. he was short of breath at rest with mild respiratory stridor. Objective - Vital Signs Vital signs: Vital Signs Temp 97.5 F L 01/26/24 12:00 Pulse 82 01/26/24 18:05 Resp 30 H 01/26/24 18:05 BP 114/87 01/26/24 18:05 Pulse Ox 91 L 01/26/24 18:05 FiO2 40 01/26/24 12:15 Intake & Output 01/25/24 01/26/24 01/26/24 18:59 06:59 18:59 Intake Total 4524.651 5711 825 Output Total 1160 895 950 Balance -83.238 405 -125 Weight 106.6 kg 106.6 kg Intake: IV 1025 900 825 Magnesium Sulfate-D5w Pmx 200 1 gm In Dextrose/Water 1 100ml.bag @ 100 mls/hr IVPB ONCE ONE Rx#: [id number] Sodium Chloride 0.9% 1, 825 900 825 000 ml @ 75 mls/hr IV . [id number] [facility] Rx#:[id number] Intake, IV Titration 51.762 Amount propofoL 1,000 mg In 51.762 Empty Bag 1 bag @ 15 MCG/ KG/MIN 9.225 mls/hr IV . [id number] [facility] Rx#:[id number] Oral 400 Output: Urine 1160 895 950 Other: Voiding Method Indwelling Catheter Indwelling Catheter Indwelling Catheter - Constitutional General appearance: Present: mild distress - EENT Eyes: Present: EOMI ENT: Present: hearing grossly normal, normal oropharynx - Neck Details: Venous congestion, more prominent right-sided Neck: Present: stridor - Respiratory Respiratory: right: diminished, wheezing - Cardiovascular Rhythm: regular Heart sounds: normal: S1, S2 - Gastrointestinal General gastrointestinal: Present: normal bowel sounds, soft - Integumentary Integumentary: Present: flushed (Face and neck) - Neurologic Neurologic: Present: CNII-XII intact - Musculoskeletal Musculoskeletal: Present: generalized weakness, strength equal bilaterally - Psychiatric Psychiatric: Present: A&O x's 3, appropriate affect - Labs CBC & Chem 7: 01/26/24 05:54 01/26/24 05:54 Labs: Abnormal Lab Results - Last 24 Hours (Table) 01/25/24 01/26/24 01/26/24 Range/Units 20:00 05:54 05:54 WBC 12.3 H (3.8-10.6) k/uL MCHC 30.1 L (31.0-37.0) g/dL Neutrophils # 10.8 H (1.3-7.7) k/uL Lymphocytes # 0.8 L (1.0-4.8) k/uL Carbon Dioxide 32 H (22-30) mmol/L BUN 21 H (9-20) mg/dL Creatinine 0.59 L (0.66-1.25) mg/dL Glucose 153 H (74-99) mg/dL POC Glucose (mg/dL) 163 H (70-110) mg/dL 01/26/24 01/26/24 01/26/24 Range/Units 06:21 11:11 16:40 WBC (3.8-10.6) k/uL MCHC (31.0-37.0) g/dL Neutrophils # (1.3-7.7) k/uL Lymphocytes # (1.0-4.8) k/uL Carbon Dioxide (22-30) mmol/L BUN (9-20) mg/dL Creatinine (0.66-1.25) mg/dL Glucose (74-99) mg/dL POC Glucose (mg/dL) 150 H 153 H 164 H (70-110) mg/dL Microbiology - Last 24 Hours (Table) 01/24/24 14:20 Gram Stain - Preliminary Bronchoalviolar Lavage - Right Bronchial Washings Culture - Preliminary Assessment and Plan (1) Lung mass Narrative/Plan: Case was discussed extensively with pathology, and pulmonary medicine. Initial prelim reading indicated possible small cell cancer. However on further evaluation by pathology, a poorly differentiated squamous cell carcinoma appears more likely. Additional stains are pending for finalization. Case was also discussed with pulmonary medicine, who confirmed that although the patient was able to be extubated, his status is quite tenuous, and without somewhat rapid relief of obstruction, acute respiratory failure is likely to recur. He would therefore be an appropriate candidate to start systemic therapy, as well as radiation as soon as possible. - The above was discussed with the patient. He was advised that this is not an ideal situation in the sense that we do not have a PET scan for staging. PET scan cannot be done as an inpatient. Ideally the patient's performance status and respiratory status should be better than his current situation, to receive chemotherapy. However it is unlikely to improve without treating the underlying cause, which will require chemotherapy and likely radiation. - We discussed that systemic therapy in this situation would definitely carry Increased risk, but is worthwhile to consider, given his critical situation due to obstruction, based on risk versus benefit. His questions were answered to the best of my ability. After discussion the patient was willing to proceed. - It was confirmed to pulmonary medicine and nursing that the patient is likely stable for additional staging studies. MRI of the brain, CT abdomen and pelvis and bone scan will be ordered, in view of the PET scan. I will also check with primary medicine about possibly a thoracentesis on the right if there is no other evidence of metastatic disease, for completion of staging. This will depend on how stable the patient does. - Case will also be discussed with radiation oncology. - We will likely initiate systemic therapy in the next 1-2 days. Current Visit: Yes Status: Acute Code(s): R91.8 - OTHER NONSPECIFIC ABNORMAL FINDING OF LUNG FIELD SNOMED Code(s): 164055723 (2) Pleural effusion, right Narrative/Plan: As above Current Visit: Yes Status: Acute Code(s): J90 - PLEURAL EFFUSION, NOT ELSEWHERE CLASSIFIED SNOMED Code(s): 26029647
[2024-01-26 20:09] LABS: Glucose,Whole Blood 197 mg/dL (70-110)
[2024-01-27 06:34] LABS: African American GFR (CKD) >90 (>60 ml/min/1.73 sqM); Anion Gap -2 mmol/L; Blood Urea Nitrogen 21 mg/dL (9-20); Calcium 8.9 mg/dL (8.4-10.2); Carbon Dioxide 35 mmol/L (22-30); Chloride 104 mmol/L (98-107); Glucose 159 mg/dL (74-99); Non-African American GFR(CKD) >90 (>60 ml/min/1.73 sqM); Potassium 4.4 mmol/L (3.5-5.1); Sodium 137 mmol/L (137-145)
[2024-01-27 06:38] LABS: Glucose,Whole Blood 164 mg/dL (70-110)
--- NOTE | 2024-01-27 06:43 | P.PN ---
Subjective Progress Note Date: 01/27/24 The patient is a 73-year-old gentleman who was admitted to the hospital with progressive exertional dyspnea and he underwent workup which revealed right upper lobe mass. The patient was admitted to the intensive care unit. He underwent a workup for the mass including bronchoscopy and biopsy. No past me dical history of CAD or hypertension or dyslipidemia or diabetes. We consulted to see the patient because of paroxysmal atrial fibrillation. The patient has been maintaining normal sinus mechanism throughout his hospital stay till earlier today when he went into an A-fib with RVR and continues to be in A-fib with RVR. Hemodynamically he is stable with his resting heart rate around 140 bpm but the pressure has been stable. He is not on any vasopressors. He is experiencing shortness of breath with exertion but no symptoms of any dizziness or lightheadedness or heart racing or fluttering or presyncope or syncope and no symptoms of any chest pain or chest discomfort. The EKG initially showed sinus mechanism but the bedside EKG in the intensive care and it showed A-fib with RVR. After discussing the case with the critical care team we decided not to pursue with anticoagulation given the high risk of bleeding. Meanwhile I am going to start the patient on Cardizem IV at 5 mg/h titrated for the heart rate if the pressure permits. Beside that we are going to obtain an echocardiogram with Doppler. No prior history of atrial fibrillation according to the patient as well as according to the chart. The physical examination is remarkable for irregular rhythm with distant heart sounds and bilateral expiratory wheezing and no edema was noted in the lower extremities January 26, 2024 The patient was seen and evaluated this morning with he is converted to normal sinus mechanism. Currently he is not on any AV lay gali agents. I am going to start the patient on Cardizem 30 mg p.o. 3 times daily to keep him in normal sinus mechanism his pressure has been stable and he is not on any vasopressors. No need for anticoagulation after we check yesterday with the critical care team for high risk of bleeding. Anyway the episode of atrial fibrillation has lasted less than 24 hours. Otherwise he remains stable from the cardiovascular standpoint of view with the echo showed normal LV systolic function with no significant valvular abnormalities. The examination is remarkable for regular rhythm with a systolic murmur at the right upper sternal border and diminished breathing sounds bilaterally and no edema was noted February 04, 2024 The patient was seen and evaluated this morning. He remains in sinus mechanism with marginally elevated pressure appears to be consistent with stage I and stage II hypertension. Otherwise he is doing well from a cardiovascular standp oint of view on the current dose of Cardizem he was started on yesterday. The echo showed preserved LV systolic function with no significant valvular abnormalities. From the cardiovascular standpoint of view, I would continue the current medical regimen and I would consider following up with the patient on as needed case. Obviously the need for anticoagulation was addressed with the pulmonary/critical care team and the plan not to start him on anticoagulation because of the risk of bleeding Assessment Right upper lobe mass with adenopathy in the mediastinum Hypoxic respiratory failure Impending SVC syndrome Hemoptysis A-fib with RVR currently the patient is in normal sinus mechanism Multiple comorbid conditions Smoking Plan Continue the current medical regimen Follow-up with the patient on as needed case Objective - Vital Signs Vital signs: Vital Signs Temp 97.4 F L 01/27/24 04:00 Pulse 68 01/27/24 06:00 Resp 24 01/27/24 06:00 BP 154/82 01/27/24 06:00 Pulse Ox 96 01/27/24 06:00 FiO2 40 01/26/24 12:15 Intake & Output 01/26/24 01/26/24 01/27/24 06:59 18:59 06:59 Intake Total 1300 900 750 Output Total 895 1025 1230 Balance 405 -125 -480 Weight 106.6 kg 106.6 kg 109.1 kg Intake: IV 900 900 750 Sodium Chloride 0.9% 1, 900 900 750 000 ml @ 75 mls/hr IV . [id number] [facility] Rx#:[id number] Oral 400 Output: Urine 895 1025 1230 Other: Voiding Method Indwelling Catheter Indwelling Catheter Indwelling Catheter # Bowel Movements 1 - Labs CBC & Chem 7: 01/26/24 05:54 01/27/24 05:28 Labs: Abnormal Lab Results - Last 24 Hours (Table) 01/26/24 01/26/24 01/26/24 Range/Units 05:54 05:54 11:11 WBC 12.3 H (3.8-10.6) k/uL MCHC 30.1 L (31.0-37.0) g/dL Neutrophils # 10.8 H (1.3-7.7) k/uL Lymphocytes # 0.8 L (1.0-4.8) k/uL Carbon Dioxide 32 H (22-30) mmol/L BUN 21 H (9-20) mg/dL Creatinine 0.59 L (0.66-1.25) mg/dL Glucose 153 H (74-99) mg/dL POC Glucose (mg/dL) 153 H (70-110) mg/dL 01/26/24 01/26/24 01/27/24 Range/Units 16:40 20:07 05:28 WBC (3.8-10.6) k/uL MCHC (31.0-37.0) g/dL Neutrophils # (1.3-7.7) k/uL Lymphocytes # (1.0-4.8) k/uL Carbon Dioxide 35 H (22-30) mmol/L BUN 21 H (9-20) mg/dL Creatinine 0.55 L (0.66-1.25) mg/dL Glucose 159 H (74-99) mg/dL POC Glucose (mg/dL) 164 H 197 H (70-110) mg/dL 01/27/24 Range/Units 06:37 WBC (3.8-10.6) k/uL MCHC (31.0-37.0) g/dL Neutrophils # (1.3-7.7) k/uL Lymphocytes # (1.0-4.8) k/uL Carbon Dioxide (22-30) mmol/L BUN (9-20) mg/dL Creatinine (0.66-1.25) mg/dL Glucose (74-99) mg/dL POC Glucose (mg/dL) 164 H (70-110) mg/dL Microbiology - Last 24 Hours (Table) 01/24/24 14:20 Gram Stain - Preliminary Bronchoalviolar Lavage - Right Bronchial Washings Culture - Preliminary
[2024-01-27 07:13] LABS: Basophils % (A) 0 %; Eosinophils % (A) 0 %; HCT 42.6 % (39.0-53.0); HGB 12.9 gm/dL (13.0-17.5); Hypochromasia Marked; Lymphocytes # (A) 0.6 k/uL (1.0-4.8); Lymphocytes % (A) 6 %; MCH 29.6 pg (25.0-35.0); MCHC 30.3 g/dL (31.0-37.0); MCV 97.7 fL (80.0-100.0); Mean Platelet Volume 13.1; Monocytes # (A) 0.6 k/uL (0-1.0); Monocytes % (A) 6 %; Neutrophils % (A) 88 %; Platelet Count 146 k/uL (150-450); RBC 4.36 m/uL (4.30-5.90); RDW 13.6 % (11.5-15.5); WBC 10.3 k/uL (3.8-10.6)
--- NOTE | 2024-01-27 09:16 | XR ---
EXAMINATION TYPE: XR chest 1V portable DATE OF EXAM: 01/27/2024 6:26 AM COMPARISON: Chest radiographs from 01/26/2024 CLINICAL INDICATION: Male, 73 years old with history of Tube placement; TECHNIQUE: XR chest 1V portable Frontal view of the chest. FINDINGS: Lungs/Pleura: Complete opacification of the right lung, left lung There is no evidence of pleural eff usion, focal consolidation, or pneumothorax. Pulmonary vascularity: Unremarkable. Heart/mediastinum: Cardiomediastinal silhouette is unremarkable. Musculoskeletal: No acute osseous pathology. IMPRESSION: Near complete opacification of the right lung similar prior. [facility], , 01/27/2024 9:14 AM
--- NOTE | 2024-01-27 10:06 | P.CONS ---
History of Present Illness - Reason for Consult Consult date: 01/27/24 Lung cancer Requesting physician: Vaughn Maki - Chief Complaint "I am short of breath" - History of Present Illness Mr. 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 He presented to the on 01/23/2024 with TURNER, hemoptysis, and unintentional weight loss. He is a former smoker. CTA chest demonstrated a 9.9 cm right perihilar mass with invasion of the mediastinum and trachea. He underwent bronchoscopy on 01/24/2024, at which time an endobronchial tumor was appreciated at the lateral wall of the distal trachea causing reduction of the lumen by at least 50%. There was also right mainstem and left mainstem involvement, as well as carinal involvement. Postprocedure, he could not be extubated. However, he was subsequently extubated and is now on 5L NC. Preliminary pathology indicates poorly differentiated squamous cell carcinoma. CT abdomen/pelvis yesterday demonstrated no obvious metastatic disease. Today, he notes he is doing okay, though is still short of breath. He has never had cancer or radiation therapy. He does not have a pacemaker. Review of Systems as per HPI Past Medical History Past Medical History: No Reported History History of Any Multi-Drug Resistant Organisms: None Reported Past Surgical History: Hernia Repair Additional Past Surgical History / Comment(s): splenectomy Past Anesthesia/Blood Transfusion Reactions: No Reported Reaction Past Psychological History: No Psychological Hx Reported Past Alcohol Use History: Occasional Past Drug Use History: None Reported Medications and Allergies Home Medications Medication Instructions Recorded Confirmed Type No Known Home Medications 01/23/24 01/23/24 History Allergies Allergy/AdvReac Type Severity Reaction Status Date / Time No Known Allergies Allergy Verified 01/23/24 13:47 Physical Exam Vitals: Vital Signs Temp Pulse Resp BP Pulse Ox 01/27/24 09:00 80 29 H 160/81 98 01/27/24 08:00 97.5 F L 80 29 H 162/112 93 L 01/27/24 07:00 78 15 158/82 88 L 01/27/24 06:00 68 24 154/82 96 01/27/24 05:00 68 29 H 148/85 96 01/27/24 04:00 97.4 F L 63 29 H 127/70 100 01/27/24 03:00 64 30 H 147/86 91 L 01/27/24 02:00 75 26 H 136/33 91 L 01/27/24 01:00 64 32 H 139/75 95 01/27/24 00:00 97.5 F L 63 36 H 115/51 94 L 01/26/24 23:15 63 25 H 105/42 95 01/26/24 23:00 63 33 H 132/76 96 01/26/24 22:00 66 32 H 139/77 92 L 01/26/24 21:00 69 23 107/42 92 L 01/26/24 20:00 97.4 F L 76 30 H 112/54 85 L 01/26/24 19:00 86 33 H 140/69 91 L 01/26/24 18:05 82 30 H 114/87 91 L 01/26/24 18:00 78 33 H 104/48 95 01/26/24 17:55 77 34 H 104/48 95 01/26/24 17:50 79 31 H 104/48 95 01/26/24 17:45 80 30 H 127/77 93 L 01/26/24 17:40 79 33 H 127/77 98 01/26/24 17:35 80 39 H 127/77 95 01/26/24 17:30 80 36 H 127/70 94 L 01/26/24 17:25 80 26 H 127/70 90 L 01/26/24 17:20 79 20 127/70 93 L 01/26/24 17:15 79 39 H 110/65 91 L 01/26/24 17:10 79 33 H 110/65 91 L 01/26/24 17:05 79 34 H 110/65 86 L 01/26/24 17:00 79 20 169/143 93 L 01/26/24 16:00 66 33 H 131/68 98 01/26/24 15:25 68 01/26/24 15:16 66 01/26/24 15:00 66 33 H 137/68 99 01/26/24 14:00 71 36 H 134/66 99 01/26/24 13:00 77 38 H 116/61 99 01/26/24 12:48 96 01/26/24 12:30 75 18 96/69 95 01/26/24 12:15 16 124/62 94 L 01/26/24 12:00 97.5 F L 73 16 135/69 96 01/26/24 11:45 73 28 H 121/61 97 01/26/24 11:39 74 01/26/24 11:30 73 22 122/54 99 01/26/24 11:20 72 01/26/24 11:15 72 28 H 126/57 98 01/26/24 11:00 71 30 H 119/55 98 01/26/24 10:45 72 28 H 141/70 99 01/26/24 10:30 71 30 H 137/68 100 01/26/24 10:15 72 22 103/43 99 01/26/24 10:00 71 28 H 110/50 100 Intake and Output 01/26/24 01/27/24 01/27/24 22:59 06:59 14:59 Intake Total 600 600 225 Output Total 825 1080 725 Balance -225 -480 -500 Intake: IV 600 600 225 Sodium Chloride 0.9% 1, 600 600 225 000 ml @ 75 mls/hr IV . [id number] [facility] Rx#:[id number] Output: Urine 825 1080 725 Other: Voiding Method Indwelling Catheter Indwelling Catheter # Bowel Movements 1 Weight 109.1 kg - Respiratory on 5L NC, mild stridor - Psychiatric Psychiatric: A&O x's 3 Results CBC & Chem 7: 01/27/24 05:28 01/27/24 05:28 Labs: Abnormal Lab Results - Last 24 Hours (Table) 01/26/24 01/26/24 01/26/24 Range/Units 11:11 16:40 20:07 Hgb (13.0-17.5) gm/dL MCHC (31.0-37.0) g/dL Plt Count (150-450) k/uL Neutrophils # (1.3-7.7) k/uL Lymphocytes # (1.0-4.8) k/uL Carbon Dioxide (22-30) mmol/L BUN (9-20) mg/dL Creatinine (0.66-1.25) mg/dL Glucose (74-99) mg/dL POC Glucose (mg/dL) 153 H 164 H 197 H (70-110) mg/dL 01/27/24 01/27/24 01/27/24 Range/Units 05:28 05:28 06:37 Hgb 12.9 L (13.0-17.5) gm/dL MCHC 30.3 L (31.0-37.0) g/dL Plt Count 146 L (150-450) k/uL Neutrophils # 9.0 H (1.3-7.7) k/uL Lymphocytes # 0.6 L (1.0-4.8) k/uL Carbon Dioxide 35 H (22-30) mmol/L BUN 21 H (9-20) mg/dL Creatinine 0.55 L (0.66-1.25) mg/dL Glucose 159 H (74-99) mg/dL POC Glucose (mg/dL) 164 H (70-110) mg/dL Microbiology - Last 24 Hours (Table) 01/24/24 14:20 Gram Stain - Final Bronchoalviolar Lavage - Right Bronchial Washings Culture - Final Assessment and Plan Assessment: Mr. 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 Plan: The patient has a locally destructive, preliminary NSCLC of the right lung. Staging thus far demonstrates no overt metastatic disease. MRI brain and bone scan are pending. The patient has impaired respiratory function and urgent treatment is indicated despite the fact that staging has not been completed. I discussed his case with Dr. Maki, who plans to initiated chemotherapy today. Should this not improve his respiratory status, I will plan on inpatient palliative radiation therapy as well. Otherwise, I will plan on nonurgent radiation therapy to his primary lesion (with curative intent after his cycle of chemotherapy if he is nonmetastatic, or palliative if he is metastatic). Herman Hayes MD Radiation Oncology Time with Patient: Greater than 30
[2024-01-27 11:06] LABS: Glucose,Whole Blood 202 mg/dL (70-110)
--- NOTE | 2024-01-27 12:34 | P.PN ---
Subjective Progress Note Date: 01/27/24 Patient is a 73-year-old male with no known past medical history presented to the emergency department by EMS after falling after walking about 40 feet this morning. He states that he "just ran out of energy." He denies tripping or syncope, no loss of consciousness. He endorses associated lightheadedness, dizziness, and dyspnea at the time. He endorses losing about 45 pounds in the last 2 months. He endorses hemoptysis for the last 3 months. He states that he has not mentioned the hemoptysis to his primary care provider. Initial EKG independently interpreted as A-fib with rapid ventricular rate, poor R-wave progression. IV Cardizem was given. Initial chest x-ray: Large right pleural effusion with associated atelectasis. Initial chest CTA: No evidence of pulmonary embolism; large right perihilar mass with superior hilar extension and invasion into the mediastinum and adjacent confluent adenopathyfinding highly concerning for primary lung cancer until proven otherwisethis caused abrupt cut off of the right mainstem bronchus with narrowing of the right pulmonary artery; small to moderate size right pleural effusion with atelectatic change of the right lungpatchy consolidative o pacities within the right lower lobe which may represent an infectious process versus related to other finding; diminutive appearance of the spleen with few scattered regions of nodularity in the upper abdomen, may represent splenosis versus other etiologies such as metastasis; 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 Initial labs: WBC 8.9, hemoglobin 14.1, hematocrit 46.7, platelets 225, PT 11.1, INR 1, APTT 19.4, D-dimer 2.48, sodium 144, potassium 5.3, chloride 104, CO2 31, BUN 26, creatinine 0.85, glucose 255, lactic acid 2.3, troponin X3 0.073, 0.097, 0.092. Initial vitals: T 97.8 F, NC 125 bpm, RR 24, BP 113/68, O2 sat 99% on 6 L nasal cannula. 01/24. Patient underwent bronchoscopy with biopsy yesterday, unable to be extubated post bronchoscopy was returned to the ICU intubated, sedated, mechanically ventilated. Plan to extubate today. Labs today: WBC 8.5, RBC 4.1, hemoglobin 12.1, platelets 209, sodium 137, potassium 4.5, chloride 107, CO2 28, BUN 18, creatinine 0.62, glucose 172. Pending bronchial specimen results. CXR today: Near complete opacification of the right lung. 01/25. Patient seen and examined at bedside. Patient was successfully extubated yesterday and is currently on 5 L high flow cannula. Chest x-ray today shows independently interpreted complete opacification of the right lung. Echo showed: Normal LV systolic function, mild right ventricular dilatation. He denies chest pain and abdominal pain. Labs today: WBC 12.3, hemoglobin 13.4, platelets 168, sodium 139, potassium 4.9, chloride 103, CO2 32, BUN 21, creatinine 0.59, glucose 153. 01/26. Patient seen and examined sitting up in bed. No acute events overnight. Chest x-ray independently interpreted shows complete opacification of the right lung. Labs today: WBC 10.3, hemoglobin 12.9, platelets 146, sodium 137, potassium 4.4, chloride 104, CO2 35, BUN 21, creatinine 0.55, glucose 159. Patient declined nuclear medicine bone scan today. Goals of care were discussed with patient and family via phone. Hospice was consulted and patient/family is agreeable. Pertinent positives and negatives discussed above, a complete review of systems was performed and all the other systems were negative. Physical examination: Vital signs reviewed. Afebrile, tachypneic, normotensive, saturating 91% on 5 L. General: Respiratory distress Derm: Warm, dry, intact Head: Atraumatic, normocephalic, symmetric Eyes: EOMI, anicteric sclera Mouth: No lip lesion, mucus membranes moist Cardiovascular: S1-S2 regular, no murmur Lungs: Diminished breath sounds on the right side, inspiratory stridor, no rhonchi, no rales Abdominal: Soft, non-tender to palpation Extremities: No cyanosis, clubbing, or pedal edema Neuro: Alert and oriented x 3 Psych: Appropriate affect and mood Assessment and Plan: Patient is a 73-year-old male with no known past medical history admitted for acute hypoxic respiratory failure. He was subsequently found to have a lung mass and is undergoing further workup. Active #. Acute hypoxic respiratory failure, likely secondary to lung mass #. Right lung atelectasis secondary to lung mass #. Hemoptysis Pending bronchoscopy specimen cytology Continue IV Decadron 6 mg every 6 hours Continue oxygen supplementation as needed to keep oxygen saturation >94% Pulmonology following Oncology following Radiation oncology following Hospice consult placed by ICU as patient is declining further imaging #. NSTEMI, type II Elevated troponinsresolved Echo: Normal LV function Cardiology following #. Atrial fibrillation versus multifocal atrial tachycardia, new onset Currently in sinus rhythm Echo: Normal LV function Cardizem 30 mg PO 3 times daily Cardiology following #. Diabetes, diagnosed on admission A1c 7.2 Insulin sliding scale Accu-Cheks ACHS Hypoglycemic precautions #. Euthyroid sick syndrome Low TSH, normal T4 Monitor clinical status Repeat in 4 to 6 weeks #. Leukocytosis, likely reactive Monitor CBC Monitor vitals Resolved #. Metabolic alkalosis F: None E: Replete if required N: Regular diet, soft foods for nowadvance as tolerated A: Fall precautions DVT prophylaxis: Currently on hold due to high risk of bleeding Code status: NO CODE Anticipated discharge place: Pending clinical course I have seen and evaluated the patient today. Discussed with the resident and agree with the residents finding and plan as documented in the resident's note. Changes highlighted in blue font. Objective - Vital Signs Vital signs: Vital Signs Temp 97.4 F L 01/27/24 04:00 Pulse 68 01/27/24 06:00 Resp 24 01/27/24 06:00 BP 154/82 01/27/24 06:00 Pulse Ox 96 01/27/24 06:00 FiO2 40 01/26/24 12:15 Intake & Output 01/26/24 01/26/24 01/27/24 06:59 18:59 06:59 Intake Total 1300 900 750 Output Total 895 1025 1230 Balance 405 -125 -480 Weight 106.6 kg 106.6 kg 109.1 kg Intake: IV 900 900 750 Sodium Chloride 0.9% 1, 900 900 750 000 ml @ 75 mls/hr IV . [id number] [facility] Rx#:[id number] Oral 400 Output: Urine 895 1025 1230 Other: Voiding Method Indwelling Catheter Indwelling Catheter Indwelling Catheter # Bowel Movements 1 - Labs CBC & Chem 7: 01/27/24 05:28 01/27/24 05:28 Labs: Abnormal Lab Results - Last 24 Hours (Table) 01/26/24 01/26/24 01/26/24 Range/Units 05:54 05:54 11:11 WBC 12.3 H (3.8-10.6) k/uL MCHC 30.1 L (31.0-37.0) g/dL Neutrophils # 10.8 H (1.3-7.7) k/uL Lymphocytes # 0.8 L (1.0-4.8) k/uL Carbon Dioxide 32 H (22-30) mmol/L BUN 21 H (9-20) mg/dL Creatinine 0.59 L (0.66-1.25) mg/dL Glucose 153 H (74-99) mg/dL POC Glucose (mg/dL) 153 H (70-110) mg/dL 01/26/24 01/26/24 01/27/24 Range/Units 16:40 20:07 05:28 WBC (3.8-10.6) k/uL MCHC (31.0-37.0) g/dL Neutrophils # (1.3-7.7) k/uL Lymphocytes # (1.0-4.8) k/uL Carbon Dioxide 35 H (22-30) mmol/L BUN 21 H (9-20) mg/dL Creatinine 0.55 L (0.66-1.25) mg/dL Glucose 159 H (74-99) mg/dL POC Glucose (mg/dL) 164 H 197 H (70-110) mg/dL 01/27/24 Range/Units 06:37 WBC (3.8-10.6) k/uL MCHC (31.0-37.0) g/dL Neutrophils # (1.3-7.7) k/uL Lymphocytes # (1.0-4.8) k/uL Carbon Dioxide (22-30) mmol/L BUN (9-20) mg/dL Creatinine (0.66-1.25) mg/dL Glucose (74-99) mg/dL POC Glucose (mg/dL) 164 H (70-110) mg/dL Microbiology - Last 24 Hours (Table) 01/24/24 14:20 Gram Stain - Preliminary Bronchoalviolar Lavage - Right Bronchial Washings Culture - Preliminary
--- NOTE | 2024-01-27 13:54 | P.PN ---
Subjective Progress Note Date: 01/27/24 A 73-year-old male patient, chronic smoker presented to the emergency department with progressive worsening shortness of breath over the past 2 to 3 months. The patient at the time of arrival was quite short of breath and he has inspiratory stridor. CT of the chest was done and the patient was found to have a right hilar mass measuring 9.9 x 4.8 cm in size and the mass extended into the right suprahilar area causing mass effect on the trachea with significant narrowing of the distal trachea and there is also an abrupt cut off of the right mainstem bronchus due to mass. There is also atelectatic changes involving the right lung and a small to moderate-sized right-sided pleural effusion and volume loss involving the right hemithorax with elevation of the right hemidiaphragm. There was also evidence of mediastinal lymphadenopathy. The tumor is extending into the trachea and there is obvious endobronchial component. The patient has been having episodes of hemoptysis in addition. In the emergency, the patient briefly went into atrial fibrillation with rapid medical response. Even before Cardizem drip was started, the patient went into normal sinus rhythm. Currently he is sitting up in a chair and is on oxygen 1 L with a pulse ox of 93%. He has a hoarse voice. No altered mentation. No headaches. No chest pain. Initial lactic acid level was at 2.3 dropped down to 1.3. Troponins are 0.07 and 0.09 respectively and a proBNP level is 1000. The white cell count is at 8.9 with a hemoglobin 14.1. He has been encountering weight loss. On 01/24/2024, the patient is being seen in follow-up in the intensive care unit. The patient seems to be slightly more comfortable compared to yesterday. Nevertheless, he continues to have respiratory stridor and there is also a component of expiratory stridor appreciated on today's examination. He is afebrile. He is hemodynamically stable. Not having any active hemoptysis. Blood work from today shows a sodium of 141, potassium level is at 5.7, BUN is 19 with a creatinine of 0.7. LFTs are normal. TSH is 0.21 and the free T4 is at 1.1. UA showing +1 ketones and +1 glucose. The WBC count is at 7.5 with a hip of 13.3 and platelet count of 231. A follow-up chest x-ray done today shows worsening opacification of the right lung with complete atelectasis and presence of right-sided pleural effusion. I had a nice discussion with the patient. I also contacted his sister, Abby, who is currently in [place] and I discussed the situation with her. The patient will need tissue diagnosis and as such the patient will need a bronchoscopy for airway inspection and biopsies. The patient and the sister was made aware that he is at very high risk of remaining on the mechanical ventilator post bronchoscopy because of his extremely compromised respiratory status. The patient opted to proceed with the procedure as the patient was very much interested in establishing a tissue diagnosis and interested in subsequent treatment. Based on that, the patient underwent a bronchoscopy in the endoscopy suite. The patient was intubated by CLINICAL ADMISSIONS MANAGER. Airway inspection showed severe anatomic distortion in the distal trachea, complete effacement of the beverly, significant narrowing of the right mainstem bronchus with endobronchial tumor going circumferentially around the right mainstem bronchus at its origin and invading the tracheal wall causing mass effect on the right lateral wall of the trachea. Right upper lobe was completely plugged with endobronchial tumor. Bronchus intermedius was narrowed. Right lower bronchus was extremely narrowed and was plugged with endobronchial tumor. Middle lobe was not identified. The left mainstem bronchus orifice was also significant narrowed probably down to its 50% of his normal caliber. Endobronchial biopsies from the trachea and right mainstem bronchus was done. Brushings and lavage was also done. Bronchoscope was removed. The patient was unable to extubate and the patient was accordingly Intubated on the mechanical ventilator and he was moved to the intensive care unit. Currently is on propofol. He is on the mechanical ventilator on assist-control mode rate of 20, tidal volume of 450, FiO2 of 100% with a PEEP of 8. Awaiting follow-up chest x-ray and blood gas. Hemodynamically stable. On 01/25/2024, the patient remains on the mechanical ventilator. He is on assist-control mode with rate of 20, tidal volume of 500, FiO2 of 50% with a PEEP of 8. Blood gas showed a pH of 7.43 with a pCO2 of 47 and pO2 of 115. The patient is on propofol running at 50 mcg/kg/min. Normal saline is a rate of 75 cc an hour. Noted the patient was unable to extubate post bronchoscopy due to significant airway compromise as discussed earlier. Biopsies were performed. Results are still pending for now. A follow-up chest x-ray was done today and the patient was found to have near complete opacification of the right lung. Left lung is essentially clear. The white cell count of 8.5, hemoglobin 12.1 and a platelet count of 209. The BUN is 18 with a creatinine of 0.6 and a sodium levels at 137. On 01/26/2024, the patient is being seen for a follow-up. Noted the patient was extubated yesterday and the patient is currently on 2 L of O2 nasal cannula. He is short of breath at rest and he continues to have inspiratory expiratory stridor. 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 The patient is being considered for systemic chemotherapy. Noted postextubation, the patient b riefly went into atrial fibrillation and subsequently went back into normal sinus rhythm. No anticoagulation was utilized and the patient is having episodes of hemoptysis. On and off, yesterday, he was also on a BiPAP pressure of 14/6 and the BiPAP was taken off and the patient is currently on 2 L of oxygen by nasal cannula. Chest x-ray from today showing complete opacification of the right lung, left lung is essentially clear. Remains on DuoNeb nebulized treatments [id number]. Remains on Decadron. Remains on oral Cardizem 30 mg p.o. 3 times daily and the patient is on normal saline at rate of 75 cc an hour. Oncology is on the case. White cell count of 12.3 with a hemoglobin 13.5 and a platelet count of 168. BUN is 21 with a creatinine of 0.5 and a sodium levels at 139. On 01/27/2024, patient is being seen for a follow-up. On today's evaluation, the patient is more short of breath, has active stridor both inspiratory and expiratory. At the same time, the patient is feeling weaker compared to yesterday. He is confused and delirious. There is obvious decompensation in his overall condition over the past 24 hours. Chest x-ray shows near complete opacification of the right lung which is a finding that still remains unchanged since yesterday. The white cell count of 10.3, hemoglobin is at 12.9 and a platelet count of 146. Sodium is at 137, BUN is 21 with a creatinine 0.5. 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 Patient not interested in treatment. Contacted the family. Changing CODE STA TUS was done. Based on his ongoing decompensation, it is reasonable to consider end-of-life care and hospice has been involved in his case. On a separate note, CAT scan of the abdomen and pelvis was done and showed nodular thickening of the right adrenal gland that is nonspecific although this could potentially reflect metastatic disease. Objective - Vital Signs Vital signs: Vital Signs Temp 97.5 F L 01/27/24 08:00 Pulse 80 01/27/24 09:00 Resp 29 H 01/27/24 09:00 BP 160/81 01/27/24 09:00 Pulse Ox 98 01/27/24 09:00 FiO2 40 01/26/24 12:15 Intake & Output 01/26/24 01/27/24 01/27/24 18:59 06:59 18:59 Intake Total 900 825 225 Output Total 1025 1430 725 Balance -125 -605 -500 Weight 106.6 kg 109.1 kg Intake: IV 900 825 225 Sodium Chloride 0.9% 1, 900 825 225 000 ml @ 75 mls/hr IV . [id number] [facility] Rx#:[id number] Output: Urine 1025 1430 725 Other: Voiding Method Indwelling Catheter Indwelling Catheter # Bowel Movements 1 - Exam The patient is currently on 2 L of oxygen by nasal cannula. No significant respite distress at rest. He has audible both inspiratory and expiratory. Breathing is labored. Cough is weak. Head exam is unremarkable. No scleral icterus or corneal arcus noted. Neck is without jugular venous distension, thyromegaly, or carotid bruits. Carotid upstrokes are brisk bilaterally. Lungs marked diminished breath sounds/absent on the right compared to left. Examination of the left side is within normal limits. Cardiac exam reveals the PMI to be normally sized and situated. Rhythm is regular. First and second heart sounds normal. No murmurs, rubs or gallops. Abdominal exam reveals normal bowel sounds, no masses, no organomegaly and no aortic enlargement. Extremities are nonedematous and both femoral and pedal pulses are normal. Examination of the skin revealed no evidence of significant rashes, suspicious appearing nevi or other concerning lesions. Neurologically, the patient is confused and delirious. No focal neurological deficit. - Labs CBC & Chem 7: 01/27/24 05:28 01/27/24 05:28 Labs: Abnormal Lab Results - Last 24 Hours (Table) 01/26/24 01/26/24 01/26/24 Range/Units 11:11 16:40 20:07 Hgb (13.0-17.5) gm/dL MCHC (31.0-37.0) g/dL Plt Count (150-450) k/uL Neutrophils # (1.3-7.7) k/uL Lymphocytes # (1.0-4.8) k/uL Carbon Dioxide (22-30) mmol/L BUN (9-20) mg/dL Creatinine (0.66-1.25) mg/dL Glucose (74-99) mg/dL POC Glucose (mg/dL) 153 H 164 H 197 H (70-110) mg/dL 01/27/24 01/27/24 01/27/24 Range/Units 05:28 05:28 06:37 Hgb 12.9 L (13.0-17.5) gm/dL MCHC 30.3 L (31.0-37.0) g/dL Plt Count 146 L (150-450) k/uL Neutrophils # 9.0 H (1.3-7.7) k/uL Lymphocytes # 0.6 L (1.0-4.8) k/uL Carbon Dioxide 35 H (22-30) mmol/L BUN 21 H (9-20) mg/dL Creatinine 0.55 L (0.66-1.25) mg/dL Glucose 159 H (74-99) mg/dL POC Glucose (mg/dL) 164 H (70-110) mg/dL Microbiology - Last 24 Hours (Table) 01/24/24 14:20 Gram Stain - Final Bronchoalviolar Lavage - Right Bronchial Washings Culture - Final Assessment and Plan Plan: Right upper lobe mass measuring 9.9 x 4.8 cm in size extending to the right suprahilar area and causing mass effect on the distal trachea with abrupt cut ultrasound of the right mainstem bronchus/bronchus intermedius and right upper lobe bronchus. The patient also has mediastinal lymphadenopathy and atelectatic changes involving the right lung and mild to moderate-sized right-sided pleural effusion and volume loss involving the right hemithorax. Findings are highly suspicious for central malignancy/primary bronchogenic cancer. Rule out underlying small cell lung cancer. The chest x-ray from 01/24/2024 showed complete opacification of the right lung. Bronchoscopy was done and the patient was found to have severe anatomic distortion of the distal trachea and main beverly, there was endobronchial tumor growing circumferentially around the orifice of the right mainstem bronchus and there was considerable narrowing in the right mainstem bronchus and the right upper lobe bronchus was completely occupied by tumor and was occluded and there was also endobronchial tumor obstructing the distal bronchus intermedius and right lower lobe bronchus. Right middle lobe bronchus was not identified. There was also significant lenny tomic narrowing of the left mainstem bronchus due to endobronchial tumor involving the main beverly with narrowing of the orifice by around 50%. Endobronchial biopsies were performed. Post bronchoscopy, the patient was unable to extubate and the patient as such was kept intubated on the mechanical ventilator. Subsequently, the patient was extubated on 01/25/2024 and the patient is currently on 2 L of oxygen by nasal cannula. Diagnosis been confirmed and the pathology is consistent with poorly differentiated squamous cell carcinoma. Acute hypoxic/hypercapnic respiratory failure secondary to above and the patient was extubated on 01/25/2024 and currently on 2 L of oxygen by nasal cannula. Acute stridor, inspiratory and expiratory related to tumor causing significant airway compromise of the left mainstem bronchus and the distal trachea and main beverly. Impending SVC syndrome with positive JVDs without facial or upper extremity swelling Delirium/confusion Acute on chronic shortness of breath secondary to above Hemoptysis, likely secondary to the right upper lobe mass extending into the right mainstem bronchus/tracheal wall Paroxysmal A-fib, currently back in normal sinus rhythm Troponin leak COPD Chronic smoking Hyperkalemia Plan Patient currently on 2 L of O2 nasal cannula Breathing is labored and the patient continues to have ongoing respiratory expiratory stridor Pathology is consistent with proliferation of squamous cell carcinoma Significant impairment respiratory status and overall performance of functional status. In addition, the mentation is altered Not a candidate for systemic chemotherapy The airway inspection showed significant airway compromise of the distal trachea, main beverly, and right mainstem bronchus with complete obstruction of the distal bronchus intermedius and the right upper lobe and there was considerable narrowing of the left mainstem bronchus orifice Continue steroids and the patient remains on Decadron Continue bronchodilators Continue oral Cardizem No anticoagulants based on his history of hemoptysis Overall prognosis is poor Discussed the findings with the sister over the phone. Will consult hospice care. Oncology has been informed.
[2024-01-27 14:49] VITALS: TEMP 97.7
[2024-01-28] MEDS: MELATONIN 5 MG TABLET PO SCH (01:51)
--- NOTE | 2024-01-28 12:19 | P.PN ---
Subjective Progress Note Date: 01/28/24 A 73-year-old male patient, chronic smoker presented to the emergency department with progressive worsening shortness of breath over the past 2 to 3 months. The patient at the time of arrival was quite short of breath and he has inspiratory stridor. CT of the chest was done and the patient was found to have a right hilar mass measuring 9.9 x 4.8 cm in size and the mass extended into the right suprahilar area causing mass effect on the trachea with significant narrowing of the distal trachea and there is also an abrupt cut off of the right mainstem bronchus due to mass. There is also atelectatic changes involving the right lung and a small to moderate-sized right-sided pleural effusion and volume loss involving the right hemithorax with elevation of the right hemidiaphragm. There was also evidence of mediastinal lymphadenopathy. The tumor is extending into the trachea and there is obvious endobronchial component. The patient has been having episodes of hemoptysis in addition. In the emergency, the patient briefly went into atrial fibrillation with rapid medical response. Even before Cardizem drip was started, the patient went into normal sinus rhythm. Currently he is sitting up in a chair and is on oxygen 1 L with a pulse ox of 93%. He has a hoarse voice. No altered mentation. No headaches. No chest pain. Initial lactic acid level was at 2.3 dropped down to 1.3. Troponins are 0.07 and 0.09 respectively and a proBNP level is 1000. The white cell count is at 8.9 with a hemoglobin 14.1. He has been encountering weight loss. On 01/24/2024, the patient is being seen in follow-up in the intensive care unit. The patient seems to be slightly more comfortable compared to yesterday. Nevertheless, he continues to have respiratory stridor and there is also a component of expiratory stridor appreciated on today's examination. He is afebrile. He is hemodynamically stable. Not having any active hemoptysis. Blood work from today shows a sodium of 141, potassium level is at 5.7, BUN is 19 with a creatinine of 0.7. LFTs are normal. TSH is 0.21 and the free T4 is at 1.1. UA showing +1 ketones and +1 glucose. The WBC count is at 7.5 with a hip of 13.3 and platelet count of 231. A follow-up chest x-ray done today shows worsening opacification of the right lung with complete atelectasis and presence of right-sided pleural effusion. I had a nice discussion with the patient. I also contacted his sister, Abby, who is currently in [place] and I discussed the situation with her. The patient will need tissue diagnosis and as such the patient will need a bronchoscopy for airway inspection and biopsies. The patient and the sister was made aware that he is at very high risk of remaining on the mechanical ventilator post bronchoscopy because of his extremely compromised respiratory status. The patient opted to proceed with the procedure as the patient was very much interested in establishing a tissue diagnosis and interested in subsequent treatment. Based on that, the patient underwent a bronchoscopy in the endoscopy suite. The patient was intubated by CHEMICAL DEPENDENCY ATTENDANT. Airway inspection showed severe anatomic distortion in the distal trachea, complete effacement of the beverly, significant narrowing of the right mainstem bronchus with endobronchial tumor going circumferentially around the right mainstem bronchus at its origin and invading the tracheal wall causing mass effect on the right lateral wall of the trachea. Right upper lobe was completely plugged with endobronchial tumor. Bronchus intermedius was narrowed. Right lower bronchus was extremely narrowed and was plugged with endobronchial tumor. Middle lobe was not identified. The left mainstem bronchus orifice was also significant narrowed probably down to its 50% of his normal caliber. Endobronchial biopsies from the trachea and right mainstem bronchus was done. Brushings and lavage was also done. Bronchoscope was removed. The patient was unable to extubate and the patient was accordingly Intubated on the mechanical ventilator and he was moved to the intensive care unit. Currently is on propofol. He is on the mechanical ventilator on assist-control mode rate of 20, tidal volume of 450, FiO2 of 100% with a PEEP of 8. Awaiting follow-up chest x-ray and blood gas. Hemodynamically stable. On 01/25/2024, the patient remains on the mechanical ventilator. He is on assist-control mode with rate of 20, tidal volume of 500, FiO2 of 50% with a PEEP of 8. Blood gas showed a pH of 7.43 with a pCO2 of 47 and pO2 of 115. The patient is on propofol running at 50 mcg/kg/min. Normal saline is a rate of 75 cc an hour. Noted the patient was unable to extubate post bronchoscopy due to significant airway compromise as discussed earlier. Biopsies were performed. Results are still pending for now. A follow-up chest x-ray was done today and the patient was found to have near complete opacification of the right lung. Left lung is essentially clear. The white cell count of 8.5, hemoglobin 12.1 and a platelet count of 209. The BUN is 18 with a creatinine of 0.6 and a sodium levels at 137. On 01/26/2024, the patient is being seen for a follow-up. Noted the patient was extubated yesterday and the patient is currently on 2 L of O2 nasal cannula. He is short of breath at rest and he continues to have inspiratory expiratory stridor. 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 The patient is being considered for systemic chemotherapy. Noted postextubation, the patient b riefly went into atrial fibrillation and subsequently went back into normal sinus rhythm. No anticoagulation was utilized and the patient is having episodes of hemoptysis. On and off, yesterday, he was also on a BiPAP pressure of 14/6 and the BiPAP was taken off and the patient is currently on 2 L of oxygen by nasal cannula. Chest x-ray from today showing complete opacification of the right lung, left lung is essentially clear. Remains on DuoNeb nebulized treatments [id number]. Remains on Decadron. Remains on oral Cardizem 30 mg p.o. 3 times daily and the patient is on normal saline at rate of 75 cc an hour. Oncology is on the case. White cell count of 12.3 with a hemoglobin 13.5 and a platelet count of 168. BUN is 21 with a creatinine of 0.5 and a sodium levels at 139. On 01/27/2024, patient is being seen for a follow-up. On today's evaluation, the patient is more short of breath, has active stridor both inspiratory and expiratory. At the same time, the patient is feeling weaker compared to yesterday. He is confused and delirious. There is obvious decompensation in his overall condition over the past 24 hours. Chest x-ray shows near complete opacification of the right lung which is a finding that still remains unchanged since yesterday. The white cell count of 10.3, hemoglobin is at 12.9 and a platelet count of 146. Sodium is at 137, BUN is 21 with a creatinine 0.5. 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 Patient not interested in treatment. Contacted the family. Changing CODE STA TUS was done. Based on his ongoing decompensation, it is reasonable to consider end-of-life care and hospice has been involved in his case. On a separate note, CAT scan of the abdomen and pelvis was done and showed nodular thickening of the right adrenal gland that is nonspecific although this could potentially reflect metastatic disease. On 01/28/2024, the patient's mental status improved compared to yesterday. He continues to have shortness of breath even at rest. He continues to have str idor. No other significant events overnight. Cardiac rhythm remains sinus. The patient is interested in hospice care. No labs are checked from today. Medications are unchanged. The patient remains on DuoNeb updrafts, Decadron and the patient is also on oral Cardizem. Tolerating diet although has diminished appetite. Objective - Vital Signs Vital signs: Vital Signs Temp 97.7 F 01/27/24 12:00 Pulse 79 01/28/24 08:30 Resp 28 H 01/27/24 20:00 BP 171/93 01/27/24 20:00 Pulse Ox 96 01/28/24 08:30 FiO2 40 01/26/24 12:15 Intake & Output 01/27/24 01/28/24 01/28/24 18:59 06:59 18:59 Intake Total 675 0 Output Total 1975 950 Balance -1300 -950 Intake: IV 675 0 Sodium Chloride 0.9% 1, 675 0 000 ml @ 75 mls/hr IV . [id number] [facility] Rx#:[id number] Output: Urine 1974 950 Other: Voiding Method Indwelling Catheter Indwelling Catheter - Exam The patient is currently on 2 L of oxygen by nasal cannula. No significant respite distress at rest. He has audible both inspiratory and expiratory. Breathing is labored. Cough is weak. Head exam is unremarkable. No scleral icterus or corneal arcus noted. Neck is without jugular venous distension, thyromegaly, or carotid bruits. Carotid upstrokes are brisk bilaterally. Lungs marked diminished breath sounds/absent on the right compared to left. Examination of the left side is within normal limits. Cardiac exam reveals the PMI to be normally sized and situated. Rhythm is regular. First and second heart sounds normal. No murmurs, rubs or gallops. Abdominal exam reveals normal bowel sounds, no masses, no organomegaly and no aortic enlargement. Extremities are nonedematous and both femoral and pedal pulses are normal. Examination of the skin revealed no evidence of significant rashes, suspicious appearing nevi or other concerning lesions. Neurologically, neurologically, the patient is awake and alert and the patient does not have any focal neurological deficit. Cranial nerves are essentially intact. - Labs CBC & Chem 7: 01/27/24 05:28 01/27/24 05:28 Labs: Abnormal Lab Results - Last 24 Hours (Table) 01/27/24 Range/Units 11:04 POC Glucose (mg/dL) 202 H (70-110) mg/dL Microbiology - Last 24 Hours (Table) 01/24/24 14:20 Gram Stain - Final Bronchoalviolar Lavage - Right Bronchial Washings Culture - Final Assessment and Plan Plan: Right upper lobe mass measuring 9.9 x 4.8 cm in size extending to the right suprahilar area and causing mass effect on the distal trachea with abrupt cut ultrasound of the right mainstem bronchus/bronchus intermedius and right upper lobe bronchus. The patient also has mediastinal lymphadenopathy and atelectatic changes involving the right lung and mild to moderate-sized right-sided pleural effusion and volume loss involving the right hemithorax. Findings are highly suspicious for central malignancy/primary bronchogenic cancer. Rule out un derlying small cell lung cancer. The chest x-ray from 01/24/2024 showed complete opacification of the right lung. Bronchoscopy was done and the patient was found to have severe anatomic distortion of the distal trachea and main beverly, there was endobronchial tumor growing circumferentially around the orifice of the right mainstem bronchus and there was considerable narrowing in the right mainstem bronchus and the right upper lobe bronchus was completely occupied by tumor and was occluded and there was also endobronchial tumor obstructing the distal bronchus intermedius and right lower lobe bronchus. Right middle lobe bronchus was not identified. There was also significant anatomic narrowing of the left mainstem bronchus due to endobronchial tumor involving the main beverly with narrowing of the orifice by around 50%. Endobronchial biopsies were performed. Post bronchoscopy, the patient was unable to extubate and the patient as such was kept intubated on the mechanical ventilator. Subsequently, the patient was extubated on 01/25/2024 and the patient is currently on 2 L of oxygen by nasal cannula. Diagnosis been confirmed and the pathology is consistent with poorly differentiated squamous cell carcinoma. Acute hypoxic/hypercapnic respiratory failure secondary to above and the patient was extubated on 01/25/2024 and currently on 2 L of oxygen by nasal cannula. Acute stridor, inspiratory and expiratory related to tumor causing significant airway compromise of the left mainstem bronchus and the distal trachea and main beverly. Impending SVC syndrome with positive JVDs without facial or upper extremity swelling Delirium/confusion, improved Acute on chronic shortness of breath secondary to above Hemoptysis, likely secondary to the right upper lobe mass extending into the right mainstem bronchus/tracheal wall Paroxysmal A-fib, currently back in normal sinus rhythm Troponin leak COPD Chronic smoking Hyperkalemia Plan Patient currently on 2 L of O2 nasal cannula Breathing is labored and the patient continues to have ongoing respiratory expiratory stridor Pathology is consistent with proliferation of squamous cell carcinoma Significant impairment respiratory status and overall performance of functional status. Delirium improved and patient's mentation is back to baseline Not a candidate for systemic chemotherapy The airway inspection showed significant airway compromise of the distal trachea, main beverly, and right mainstem bronchus with complete obstruction of the distal bronchus intermedius and the right upper lobe and there was considerable narrowing of the left mainstem bronchus orifice Continue steroids and the patient remains on Decadron Continue bronchodilators Continue oral Cardizem No anticoagulants based on his history of hemoptysis Overall prognosis is poor Awaiting hospice Can be transferred to oncology and at
--- NOTE | 2024-01-28 12:51 | P.PN ---
Subjective Progress Note Date: 01/28/24 Patient is a 73-year-old male with no known past medical history presented to the emergency department by EMS after falling after walking about 40 feet this morning. He states that he "just ran out of energy." He denies tripping or syncope, no loss of consciousness. He endorses associated lightheadedness, dizziness, and dyspnea at the time. He endorses losing about 45 pounds in the last 2 months. He endorses hemoptysis for the last 3 months. He states that he has not mentioned the hemoptysis to his primary care provider. Initial EKG independently interpreted as A-fib with rapid ventricular rate, poor R-wave progression. IV Cardizem was given. Initial chest x-ray: Large right pleural effusion with associated atelectasis. Initial chest CTA: No evidence of pulmonary embolism; large right perihilar mass with superior hilar extension and invasion into the mediastinum and adjacent confluent adenopathyfinding highly concerning for primary lung cancer until proven otherwisethis caused abrupt cut off of the right mainstem bronchus with narrowing of the right pulmonary artery; small to moderate size right pleural effusion with atelectatic change of the right lungpatchy consolidative o pacities within the right lower lobe which may represent an infectious process versus related to other finding; diminutive appearance of the spleen with few scattered regions of nodularity in the upper abdomen, may represent splenosis versus other etiologies such as metastasis; 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 Initial labs: WBC 8.9, hemoglobin 14.1, hematocrit 46.7, platelets 225, PT 11.1, INR 1, APTT 19.4, D-dimer 2.48, sodium 144, potassium 5.3, chloride 104, CO2 31, BUN 26, creatinine 0.85, glucose 255, lactic acid 2.3, troponin X3 0.073, 0.097, 0.092. Initial vitals: T 97.8 F, GA 125 bpm, RR 24, BP 113/68, O2 sat 99% on 6 L nasal cannula. 01/24. Patient underwent bronchoscopy with biopsy yesterday, unable to be extubated post bronchoscopy was returned to the ICU intubated, sedated, mechanically ventilated. Plan to extubate today. Labs today: WBC 8.5, RBC 4.1, hemoglobin 12.1, platelets 209, sodium 137, potassium 4.5, chloride 107, CO2 28, BUN 18, creatinine 0.62, glucose 172. Pending bronchial specimen results. CXR today: Near complete opacification of the right lung. 01/25. Patient seen and examined at bedside. Patient was successfully extubated yesterday and is currently on 5 L high flow cannula. Chest x-ray today shows independently interpreted complete opacification of the right lung. Echo showed: Normal LV systolic function, mild right ventricular dilatation. He denies chest pain and abdominal pain. Labs today: WBC 12.3, hemoglobin 13.4, platelets 168, sodium 139, potassium 4.9, chloride 103, CO2 32, BUN 21, creatinine 0.59, glucose 153. 01/26. Patient seen and examined sitting up in bed. No acute events overnight. Chest x-ray independently interpreted shows complete opacification of the right lung. Labs today: WBC 10.3, hemoglobin 12.9, platelets 146, sodium 137, potassium 4.4, chloride 104, CO2 35, BUN 21, creatinine 0.55, glucose 159. Patient declined nuclear medicine bone scan today. Goals of care were discussed with patient and family via phone. Hospice was consulted and patient/family is agreeable. 01/27. Patient seen and examined sitting in bed. No acute events overnight. No significant complaints today. Patient planning to go home on hospice today. No new labs today. Pertinent positives and negatives discussed above, a complete review of systems was performed and all the other systems were negative. Physical examination: Vital signs reviewed. Afebrile, tachypneic, normotensive, saturating 91% on 5 L. General: Respiratory distress, labored breathing, accessory muscle use Derm: Warm, dry, intact Head: Atraumatic, normocephalic, symmetric Eyes: EOMI, anicteric sclera Mouth: No lip lesion, mucus membranes moist Cardiovascular: S1-S2 regular, no murmur Lungs: Diminished breath sounds on the right side, inspiratory stridor, no rhonchi, no rales Abdominal: Soft, non-tender to palpation Extremities: No cyanosis, clubbing, or pedal edema Neuro: Alert and oriented x 3 Psych: Appropriate affect and mood Assessment and Plan: Patient is a 73-year-old male with no known past medical history admitted for acute hypoxic respiratory failure. He was subsequently found to have a lung mass and is undergoing further workup. Active #. Acute hypoxic respiratory failure, likely secondary to lung mass #. Right lung atelectasis secondary to lung mass #. Hemoptysis Bronchoscopy specimen cytology: Poorly differentiated squamous cell carcinoma Continue IV Decadron 6 mg every 6 hours Continue oxygen supplementation as needed to keep oxygen saturation >94% Pulmonology following Oncology followingpatient is not a candidate for systemic chemotherapy Radiation oncology following #. NSTEMI, type II Elevated troponinsresolved Echo: Normal LV function Cardiology following #. Atrial fibrillation versus multifocal atrial tachycardia, new onset Currently in sinus rhythm Echo: Normal LV function Cardizem 30 mg PO 3 times daily Cardiology following #. Diabetes, diagnosed on admission A1c 7.2 Sliding scale discontinued as patient will be hospice #. Euthyroid sick syndrome Low TSH, normal T4 Monitor clinical status #. Leukocytosis, likely reactive Monitor CBC Monitor vitals Resolved #. Metabolic alkalosis F: None E: Replete if required N: Regular diet, soft foods for nowadvance as tolerated A: Fall precautions DVT prophylaxis: Currently on hold due to high risk of bleeding Code status: NO CODE Anticipated discharge place: Awaiting hospice discharge I have seen and evaluated the patient today. Discussed with the resident and agree with the residents finding and plan as documented in the resident's note. Changes highlighted in blue font. Objective - Vital Signs Vital signs: Vital Signs Temp 97.7 F 01/27/24 12:00 Pulse 79 01/27/24 20:00 Resp 28 H 01/27/24 20:00 BP 171/93 01/27/24 20:00 Pulse Ox 96 01/27/24 20:00 FiO2 40 01/26/24 12:15 Intake & Output 01/27/24 01/27/24 01/28/24 06:59 18:59 06:59 Intake Total 825 675 Output Total 1430 1974 Balance -605 -1300 Weight 109.1 kg Intake: IV 825 675 Sodium Chloride 0.9% 1, 825 675 000 ml @ 75 mls/hr IV . [id number] [facility] Rx#:[id number] Output: Urine 1430 1974 Other: Voiding Method Indwelling Catheter Indwelling Catheter Indwelling Catheter # Bowel Movements 1 - Labs CBC & Chem 7: 01/27/24 05:28 01/27/24 05:28 Labs: Abnormal Lab Results - Last 24 Hours (Table) 12/20/24 12/20/24 Range/Units 05:28 11:04 Hgb 12.9 L (13.0-17.5) gm/dL MCHC 30.3 L (31.0-37.0) g/dL Plt Count 146 L (150-450) k/uL Neutrophils # 9.0 H (1.3-7.7) k/uL Lymphocytes # 0.6 L (1.0-4.8) k/uL POC Glucose (mg/dL) 202 H (70-110) mg/dL Microbiology - Last 24 Hours (Table) 01/24/24 14:20 Gram Stain - Final Bronchoalviolar Lavage - Right Bronchial Washings Culture - Final
--- NOTE | 2024-01-28 14:47 | P.DS ---
Providers Date of admission: 01/23/24 13:34 Expected date of discharge: 01/28/24 Attending physician: Christiano Ramos MD Consults: 01/23/24 13:45 Consult Physician Urgent Consulting Provider: Olesya Riojas Consult Reason/Comments: Pulmonary mass, pleural effusion Do you want consulting provider notified?: Yes 01/23/24 15:25 Consult Physician Routine Consulting Provider: Vaughn Maki Consult Reason/Comments: lung mass Do you want consulting provider notified?: Yes 01/23/24 18:18 Consult Physician Routine Consulting Provider: Kalyan Quan Consult Reason/Comments: lung mass Do you want consulting provider notified?: Yes 01/25/24 10:05 Consult Physician Routine Consulting Provider: Varghese Mcnulty Consult Reason/Comments: nstemi and possible MAT Do you want consulting provider notified?: Yes Primary care physician: [facility] Course: Hospital Course: Patient is a 73-year-old male with no known past medical history presented to the emergency department by EMS after falling after walking about 40 feet this morning. He states that he "just ran out of energy." He denies tripping or syncope, no loss of consciousness. He endorses associated lightheadedness, dizziness, and dyspnea at the time. He endorses losing about 45 pounds in the last 2 months. He endorses hemoptysis for the last 3 months. He states that he has not mentioned the hemoptysis to his primary care provider. Initial EKG independently interpreted as A-fib with rapid ventricular rate, poor R-wave progression. IV Cardizem was given. Initial chest x-ray: Large right pleural effusion with associated atelectasis. Initial chest CTA: No evidence of pulmonary embolism; large right perihilar mass with superior hilar extension and invasion into the mediastinum and adjacent confluent adenopathyfinding highly concerning for primary lung cancer until proven otherwisethis caused abrupt cut off of the right mainstem bronchus with narrowing of the right pulmonary artery; small to moderate size right pleural effusion with atelectatic change of the right lungpatchy consolidative opacities within the right lower lobe which may represent an infectious process versus related to other finding; diminutive appearance of the spleen with few scattered regions of nodularity in the upper abdomen, may represent splenosis versus other etiologies such as metastasis; 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 Initial labs: WBC 8.9, hemoglobin 14.1, hematocrit 46.7, platelets 225, PT 11.1, INR 1, APTT 19.4, D-dimer 2.48, sodium 144, potassium 5.3, chloride 104, CO2 31, BUN 26, creatinine 0.85, glucose 255, lactic acid 2.3, troponin X3 0.073, 0.097, 0.092. Initial vitals: T 97.8 F, [place] 125 bpm, RR 24, BP 113/68, O2 sat 99% on 6 L nasal cannula. Patient was admitted to the ICU. Pulmonology, oncology, radiation oncology were consulted. Patient underwent bronchoscopy with biopsy on 01/23 and was successfully extubated on 01/24. His oxygen requirement was able to be weaned down over the course of his stay to 4 L nasal cannula. During his stay goals of care were discussed with patient and his family via phone. Hospice was consulted and patient/family is agreeable. Patient going to hospice house. Medication on discharge: Cardizem 30 mg PO 3 times daily, DuoNeb 3 mL inhalation 4 times daily, melatonin 5 mg PO at bedtime. Final Diagnosis: #. 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 Acute hypoxic respiratory failure, secondary to lung mass #. Right lung atelectasis secondary to lung mass #. Hemoptysis #. NSTEMI, type II #. Atrial fibrillation versus multifocal atrial tachycardia, new onset #. Diabetes, diagnosed on admission #. Euthyroid sick syndrome #. Leukocytosis, likely reactive Physical examination: Vital signs reviewed. Afebrile, tachypneic, normotensive, saturating 96% on 4 L. General: Respiratory distress, labored breathing, accessory muscle use Derm: Warm, dry, intact Head: Atraumatic, normocephalic, symmetric Eyes: EOMI, anicteric sclera Mouth: No lip lesion, mucus membranes moist Cardiovascular: S1-S2 regular, no murmur Lungs: Diminished breath sounds on the right side, inspiratory stridor, no rhonchi, no rales Abdominal: Soft, non-tender to palpation Extremities: No cyanosis, clubbing, or pedal edema Neuro: Alert and oriented x 3 Psych: Appropriate affect and mood A total of 32 minutes of time were spent preparing this complex discharge summary. Patient was discharged on 01/28/2024 at 14 34. I have seen and evaluated the patient today. Discussed with the resident and agree with the residents finding and plan as documented in the resident's note. Changes highlighted in blue font. Patient Condition at Discharge: Poor Plan - Discharge Summary Discharge Rx Participant: Yes New Discharge Prescriptions: New Diltiazem Oral [Cardizem*] 30 mg PO TID tab Ipratropium-Albuterol Nebulize [Duoneb 0.5 mg-3 mg/3 ml Soln] 3 ml INHALATION RT-QID each Melatonin 5 mg PO HS tab Discharge Medication List Diltiazem Oral [Cardizem*] 30 mg PO TID tab 01/28/24 [Rx] Ipratropium-Albuterol Nebulize [Duoneb 0.5 mg-3 mg/3 ml Soln] 3 ml INHALATION RT-QID each 01/28/24 [Rx] Melatonin 5 mg PO HS tab 01/28/24 [Rx] Discharge Disposition: [facility]
[2024-01-28 14:51] VITALS: BP 152/92; PULSE 77; RESP 26
== END 2024-01-28 16:00 | disposition hospice, inpatient (51) | DRG 208 ==
LOC: EC 11:05 → 3SCARD 13:34 → 2SICU 16:51
PROVIDERS: ADMIT Internal Medicine; ATTEND Internal Medicine
PROC: 0BH18EZ Insertion of Endotracheal Airway into Trachea, Via Natural or Artificial Opening Endoscopic (ICD-10-PCS; 2024-01-24)
PROC: 0B938ZZ Drainage of Right Main Bronchus, Via Natural or Artificial Opening Endoscopic (ICD-10-PCS; 2024-01-24)
PROC: 0BD38ZX Extraction of Right Main Bronchus, Via Natural or Artificial Opening Endoscopic, Diagnostic (ICD-10-PCS; 2024-01-24)
PROC: 0BD18ZX Extraction of Trachea, Via Natural or Artificial Opening Endoscopic, Diagnostic (ICD-10-PCS; 2024-01-24)
PROC: 0BB13ZX Excision of Trachea, Percutaneous Approach, Diagnostic (ICD-10-PCS; principal; 2024-01-24 07:30)
PROC: 0BB38ZX Excision of Right Main Bronchus, Via Natural or Artificial Opening Endoscopic, Diagnostic (ICD-10-PCS; 2024-01-24 07:30)
PROC: 5A1935Z Respiratory Ventilation, Less than 24 Consecutive Hours (ICD-10-PCS; 2024-01-24 07:30)
DX: C34.91 Malignant neoplasm of unspecified part of right bronchus or lung (principal); I21.A1 Myocardial infarction type 2; J96.01 Acute respiratory failure with hypoxia; E87.3 Alkalosis; J90 Pleural effusion, not elsewhere classified; J98.11 Atelectasis; F05 Delirium due to known physiological condition; R04.2 Hemoptysis; I87.1 Compression of vein; C77.1 Secondary and unspecified malignant neoplasm of intrathoracic lymph nodes; C34.01 Malignant neoplasm of right main bronchus; R06.1 Stridor; J39.8 Other specified diseases of upper respiratory tract; I48.0 Paroxysmal atrial fibrillation; E11.9 Type 2 diabetes mellitus without complications; E07.81 Sick-euthyroid syndrome; D72.829 Elevated white blood cell count, unspecified; I08.1 Rheumatic disorders of both mitral and tricuspid valves; W19.XXXA Unspecified fall, initial encounter; Z51.5 Encounter for palliative care; Z79.899 Other long term (current) drug therapy; Z90.81 Acquired absence of spleen; Z87.19 Personal history of other diseases of the digestive system
CPT/HCPCS: 31623; 31624; 31625; 36415; 36600; 71045; 71046; 71275; 74177; 80048; 80053; 80061; 81003; 82805; 83036; 83605; 83615; 83735; 83880; 84132; 84145; 84439; 84443; 84484; 85025; 85379; 85610; 85730; 87070; 87205; 88104; 88108; 88305; 88341; 88342; 93005; 93306; 94002; 94003; 94640; 94660; 94760; 99285